=== PATIENT | female | born 1965 | race Caucasian/White ===

== ENCOUNTER 2017-09-02 12:42 | Observation (INO) ==
[2017-09-02] MEDS ORDERED: Nitroglycerin 0.4 MG TAB.SUBL SL ONE (12:50)
[2017-09-02] MEDS: Aspirin 81 MG TAB.CHEW PO ONE ×2 (12:56→13:02)
[2017-09-02] MEDS ORDERED: Ondansetron 4 MG/2 ML VIAL IVP ONE (12:58)
--- NOTE | 2017-09-02 12:58 | Emergency Department Note ---
Disposition Clinical Impression: Chest pain of uncertain etiology Disposition: Admitted As Inpatient Time of Disposition: 18:48 General Adult HPI - General Chief complaint: ED Shortness of Breath/Dyspnea Stated complaint: SOB Time Seen by Provider: 09/02/17 12:42 Source: patient, EMS Limitations: no limitations Nursing Notes Reviewed: Yes Vital Signs Reviewed: Yes - History of Present Illness HPI Narrative: Mrs. Banda, a 51yo female, presents from home for acute onset dyspnea with nausea , running 1, sharp stabbing pain in the midsternum and below her left breast with radiation to her left scapula which is worse with deep inspiration, associated with tingling going down her left arm. Patient feels warm and flushed. Cardiac history: Prior KS (year unknown) without stent placement. Echo 03/15/17-LVEF 60%. LV mild diastolic dysfunction with concentric LV hypertrophy. No significant valvular dysfunction. No pulmonary hypertension. Nuclear treadmill stress test 06/22/15 - resting hypertension worsened with exercise. EF 69%. Negative for ischemia or prior infarct. PMH: Hypertension, hyperlipidemia, diabetes, previous KS, CHF, COPD not requiring oxygen at home. ROS: Positive: As above Negative: Fever, chills, abdominal pain, unusual cough, trauma Pain Scale: 6 - Related Data Home Medications Medication Instructions Recorded Confirmed Albuterol Sulfate [Proair 2 puff IH Q4H PRN 01/31/16 09/02/17 Respiclick] Atorvastatin Calcium [Lipitor] 20 mg PO DAILY 01/31/16 09/02/17 Chlorthalidone 25 mg PO DAILY 01/31/16 09/02/17 Gabapentin [Neurontin] 300 mg PO HS 01/31/16 09/02/17 Lisinopril [Zestril] 40 mg PO BID 01/31/16 09/02/17 SitaGLIPtin [Januvia] 100 mg PO DAILY 01/31/16 09/02/17 Spironolactone [Aldactone] 100 mg PO DAILY 01/31/16 09/02/17 amLODIPine [Norvasc] 10 mg PO DAILY 01/31/16 09/02/17 metFORMIN [Glucophage] 1,000 mg PO BIDWM 01/31/16 09/02/17 Budesonide/Formoterol 160/4.5 2 puff IH BIDR 04/07/16 09/02/17 [Symbicort 160/4.5] Sucralfate [Carafate] 1 gm PO BID 04/07/16 09/02/17 Doxazosin [Cardura] 4 mg PO HS 01/19/17 09/02/17 cloNIDine HCl [Clonidine HCl] 0.15 mg PO BID 01/19/17 09/02/17 cloNIDine HCl [Clonidine HCl] 0.3 mg PO HS 01/19/17 09/02/17 Escitalopram [Lexapro] 10 mg PO DAILY 09/02/17 09/02/17 Hydralazine HCl 50 mg PO TID 09/02/17 09/02/17 Minoxidil 2.5 mg PO BID 09/02/17 09/02/17 Montelukast [Singulair] 10 mg PO HS 09/02/17 09/02/17 Pantoprazole Sodium [Protonix] 40 mg PO BID 09/02/17 09/02/17 Tiotropium [Spiriva] 1 puff IH DAILY 09/02/17 09/02/17 Previous Rx's Medication Instructions Recorded PredniSONE [Deltasone] 20 mg PO DAILY #10 tablet 08/24/17 Allergies Allergy/AdvReac Type Severity Reaction Status Date / Time Beta-Blockers Allergy Difficulty Verified 08/24/17 08:52 (Beta-Adrenergic Bloc Breathing All systems ED: reviewed and negative except as stated. Review of Systems: As Per HPI Past Medical History - Past Medical History Medical history: Reports: asthma, CHF, COPD, diabetes, GERD, hyperlipidemia, hypertension, myocardial infarction, TIA Surgical history: Reports: appendectomy Psychiatric history: Reports: no psych history [employer] history: Reports: non-contributory - Social History Smoking Status: Former smoker Smokeless Tobacco Status: No Alcohol use: Reports: none Drug use: Reports: none Physical Exam Vital Signs Reviewed General: Patient is alert, oriented, and in moderate distress-she is breathing shallow and is tachypneic. Grimacing on her face. HEENT: No facial asymmetry. Head is normocephalic and atraumatic. Mucosa moist. Trachea midline. Cardiovascular: Heart regular rate and rhythm without clicks, rubs, gallops, or murmurs. No JVD. PMI nondisplaced. Radial posterior tibial pulses 2/44. No pedal edema. Respiratory: Symmetric chest rise with good respiratory effort. Bilateral breath sounds are clear without wheezing, crackles, or rhonchi. Abdomen: Bowel sounds present normoactive x-4 quadrants. Abdomen is soft, nondistended, and nontender. No organomegaly noted. Musculoskeletal: Spontaneously moving all extremities. Neuro: GCS 15. Skin: Warm, dry, intact Psych: Patient's affect is appropriate for situation. - General Limitations: no limitations General appearance: alert, in no apparent distress Course Course Narrative: Patient presents from home with symptoms concerning for ACS. She appears uncomfortable. She notes her symptoms today feel very similar to her previous KS. She also is having increased work of breathing with diffuse wheezing on pulmonary auscultation. Symptoms improved substantially with sublingual nitroglycerin. Initial EKG is unremarkable. Repeat EKG shows no changes. Chest x-ray unremarkable. Initial troponin is 0.00. Patient is agreeable to admission for chest pain rule out ACS. Vital Signs Temperature 97.7 F 09/02/17 12:43 Pulse Rate 87 09/02/17 12:43 Respiratory Rate 20 09/02/17 12:43 Blood Pressure 114/74 09/02/17 12:43 O2 Sat by Pulse Oximetry 95 09/02/17 12:43 Temperature 97.7 F 09/02/17 15:50 Pulse Rate 116 09/02/17 15:50 Respiratory Rate 15 09/02/17 15:50 Blood Pressure 178/80 09/02/17 15:50 O2 Sat by Pulse Oximetry 96 09/02/17 15:50 Oxygen Delivery Oxygen Delivery Nasal Cannula Medical Decision Making - Medical Records Medical records reviewed: Yes I reviewed the patient's medical records. - Lab Data Lab results reviewed: Yes I reviewed the patient's lab results. Result diagrams: 09/02/17 12:53 09/02/17 12:53 Lab Results 09/02/17 09/02/17 09/02/17 Range/Units 12:53 12:53 12:53 WBC 13.4 H (4.3-11.1) K/mcL RBC 4.84 (3.82-4.97) M/mcL Hgb 13.3 (11.5-15.4) g/dL Hct 39.5 (35.3-44.9) % MCV 81.6 L (83.0-100.0) fL MCH 27.5 L (28.0-33.3) pg MCHC 33.7 (31.6-35.5) g/dL RDW 12.1 (11.5-14.5) % Plt Count 238 (140-400) K/mcL MPV 9.1 L (9.4-12.4) fL Immature Gran % 1.8 (0-4) % Seg Neutrophils % 66.7 % Lymphocytes % 20.4 % Monocytes % 7.2 % Eosinophils % 3.2 % Basophils % 0.7 % Neutrophils # 9.0 H (1.6-8.9) K/mcL Lymphocytes # 2.7 (0.6-4.6) K/mcL Monocytes # 1.0 (0.0-1.3) K/mcL Eosinophils # 0.4 (0.0-0.6) K/mcL Basophils # 0.1 (0.0-0.2) K/mcL PT 10.0 (9.4-12.1) Seconds INR 0.9 APTT 25.5 L (26.0-36.0) Seconds Sodium 136 (136-145) mEq/L Potassium 3.9 (3.5-4.5) mEq/L Chloride 103 (98-109) mEq/L Carbon Dioxide 24 (19-29) mEq/L BUN 12 (7-20) mg/dL Creatinine 0.74 (0.57-1.11) mg/dL Est GFR ( Amer) > 60 (> 60) Est GFR (Non-Af Amer) > 60 (> 60) BUN/Creatinine Ratio 16 (6-26) Glucose 166 H (70-99) mg/dL Calculated Osmolality 286 (280-300) Calcium 8.9 (8.6-10.8) mg/dL Troponin I (0-0.03) ng/mL 09/02/17 Range/Units 12:53 WBC (4.3-11.1) K/mcL RBC (3.82-4.97) M/mcL Hgb (11.5-15.4) g/dL Hct (35.3-44.9) % MCV (83.0-100.0) fL MCH (28.0-33.3) pg MCHC (31.6-35.5) g/dL RDW (11.5-14.5) % Plt Count (140-400) K/mcL MPV (9.4-12.4) fL Immature Gran % (0-4) % Seg Neutrophils % % Lymphocytes % % Monocytes % % Eosinophils % % Basophils % % Neutrophils # (1.6-8.9) K/mcL Lymphocytes # (0.6-4.6) K/mcL Monocytes # (0.0-1.3) K/mcL Eosinophils # (0.0-0.6) K/mcL Basophils # (0.0-0.2) K/mcL PT (9.4-12.1) Seconds INR APTT (26.0-36.0) Seconds Sodium (136-145) mEq/L Potassium (3.5-4.5) mEq/L Chloride (98-109) mEq/L Carbon Dioxide (19-29) mEq/L BUN (7-20) mg/dL Creatinine (0.57-1.11) mg/dL Est GFR ( Amer) (> 60) Est GFR (Non-Af Amer) (> 60) BUN/Creatinine Ratio (6-26) Glucose (70-99) mg/dL Calculated Osmolality (280-300) Calcium (8.6-10.8) mg/dL Troponin I 0.00 (0-0.03) ng/mL - Radiology Data Radiology results reviewed: Yes I reviewed the patient's radiology results. Chest X-Ray 09/02/17 12:50 IMPRESSION: Stable cardiomegaly without acute cardiopulmonary findings. Previously noted nodule is not well appreciated on today's study. D/ / 09/02/2017 14:05:55 Araseli Thompson MD / amber Interpreting Provider: Araseli Thompson MD - EKG Data EKG #1 EKG attestation: Yes I reviewed and interpreted this EKG. EKG results narrative: EKG dated 02 September 2017 at 12:47 intervertebral sinus rhythm with a rate of 84. Normal intervals with MD 152, QRS 90, QT/QTC 391/432. Normal axis. Nonspecific ST-T changes. Compared to previous EKG showing no acute ischemic changes. EKG #2 EKG attestation: Yes I reviewed and interpreted this EKG. EKG results narrative: EKG dated 02 September 2017 at 13:44 interpreted as sinus rhythm with rate of 93. Normal intervals of care 192, QRS 80, QT/QTc 34/435. Compared to previous EKG from today showing no acute ischemic changes. Attestation Statement - Attestation Attestation: I examined this patient and my medical decision-making was reviewed with the Resident Physician. I agree with the documented findings, disposition and treatment plan as described except to the extent set forth below. Patient eating or shortness of breath and chest pain. Pain started while going up the stairs. States her left arm went numb. She has had some nausea and vomiting as well. On examination here she appears mildly tachypneic. Crackles in bases. Decreased air exchange. Plan. Cardiac workup with nebs. Likely admission.
[2017-09-02 13:01] LABS: Basophils # 0.1 K/mcL (0.0-0.2); Basophils % 0.7 %; Eosinophils # 0.4 K/mcL (0.0-0.6); Eosinophils % 3.2 %; Hematocrit 39.5 % (35.3-44.9); Hemoglobin 13.3 g/dL (11.5-15.4); Immature Granulocytes % 1.8 % (0-4); Lymphocytes # 2.7 K/mcL (0.6-4.6); Lymphocytes % 20.4 %; Mean Corpuscular HGB Conc 33.7 g/dL (31.6-35.5); Mean Corpuscular Hemoglobin 27.5 pg (28.0-33.3); Mean Corpuscular Volume 81.6 fL (83.0-100.0); Mean Platelet Volume 9.1 fL (9.4-12.4); Monocytes % 7.2 %; Platelet Count 238 K/mcL (140-400); Red Blood Count 4.84 M/mcL (3.82-4.97); Red Cell Distribution Width 12.1 % (11.5-14.5); Segmented Neutrophils % 66.7 %
[2017-09-02] MEDS ORDERED: 0.9 % Sodium Chloride 1,000 ML IVC ONE ×2 (13:06→21:55)
[2017-09-02 13:14] LABS: BUN/Creatinine Ratio 16 (6-26); Blood Urea Nitrogen 12 mg/dL (7-20); Calcium 8.9 mg/dL (8.6-10.8); Carbon Dioxide 24 mEq/L (19-29); Chloride 103 mEq/L (98-109); Glucose 166 mg/dL (70-99); Osmolality,Calculated 286 (280-300); Potassium 3.9 mEq/L (3.5-4.5); Sodium 136 mEq/L (136-145); eGFR For African Americans > 60 (> 60); eGFR For Non-African Americans > 60 (> 60)
[2017-09-02 13:18] LABS: INR 0.9
[2017-09-02 13:21] LABS: Activated Partial Thrombo Time 25.5 Seconds (26.0-36.0)
[2017-09-02] MEDS ORDERED: methylPREDNISolone 125 MG/2 ML VIAL IVP ONE (14:13)
[2017-09-02] MEDS ORDERED: Ipratropium/Albuterol Neb 3 ML IH ONE (14:13)
[2017-09-02] MEDS ORDERED: Mag Hydrox/Al Hydrox/Simeth 30 ML UDC PO PRN (17:04)
[2017-09-02] MEDS ORDERED: *HR* Morphine 2 MG/ML SYRINGE IVP PRN (17:04)
[2017-09-02] MEDS ORDERED: Naloxone 0.4 MG/ML INJ IVP PRN (17:04)
--- NOTE | 2017-09-02 17:30 | Internal Med History&Physical ---
Date of Encounter: 09/02/17 Time of Encounter: 17:27 Assessment and Plan (1) Acute exacerbation of chronic obstructive airways disease Current visit: No Status: Acute Patient is likely to have a exacerbation of underlying COPD. Plan: Will start antibiotics: Ceftriaxone/azithromycin. We will start prednisone orally : 20 mg We will continue inhaled bronchodilators (2) Chest pain Current visit: No Status: Resolved Patient admitted with the chest pain. Heart score more than 3. Her cardiac history is as follows. Echo 03/15/17-LVEF 60%. LV mild diastolic dysfunction with concentric LV hypertrophy. No significant valvular dysfunction. No pulmonary hypertension. Nuclear treadmill stress test 06/22/15 - resting hypertension worsened with exercise. EF 69%. Negative for ischemia or prior infarct. Plan: We will cycle troponin. If troponins are positive and will get a cardiology evaluation. Patient had a stress test in last 2 years and echo in less than 1 year. Qualifiers: Chest pain type: unspecified Qualified Code(s): R07.9 - Chest pain, unspecified (3) HLD (hyperlipidemia) Current visit: No Status: Chronic Patient on statin. Qualifiers: Hyperlipidemia type: unspecified Qualified Code(s): E78.5 - Hyperlipidemia , unspecified (4) Community acquired pneumonia Current visit: No Status: Acute likely clinical pneumonia Qualifiers: Laterality: unspecified laterality Qualified Code(s): J18.9 - Pneumonia, unspecified organism (5) DVT prophylaxis Current visit: No Status: Acute SCD. Medical decision-making this patient has a moderate to severe risk of worsening in spite of being on appropriate medication to the underlying comorbid conditions. Internal Medicine - H&P: HPI Chief complaint: Chest pain Admitted From: Emergency Dept Plans for Post Hospital Care: Home History of present illness: PCP: Nurse practitioner Juan Ramon Brief past medical history: Hypertension, diabetes, hyperlipidemia, COPD, previous NM which is not documented. 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 The pain is left precordial, radiating, associated with exertion and relieved by rest. She has some tingling sensation on her left arm. Patient was concerned for her symptoms. Patient's daughter works here in this hospital. His for the reason patient came to the emergency room for further evaluation. Patient denies abdominal pain, nausea, vomiting, dizziness and diarrhea. Workup in the emergency room: He was evaluated in the emergency room. Possibility of coronary syndrome was suspected. Reason for admission: Chest pain to rule out acute coronary syndrome. Patient also meets the criteria for sepsis. We will start her on broad-spectrum antibiotics. Family history: Noncontributing Past Med Surg Social Fam HX - Past Medical History Medical history: asthma, CHF, COPD, diabetes, GERD, hyperlipidemia, hypertension , myocardial infarction, TIA Psychiatric history: no psych history - Past Surgical History Surgical History: appendectomy - Social History Smoking Status: Former smoker Smokeless Tobacco Status: No Alcohol use: none Drug use: none - Family History Mother Family Member Ethnicity: Non- Living Status: Age at : 60 Cause of : NM Hx Family Cardiac Disorders: Yes Hx Family Respiratory Disorders: No Hx Family Cancer: No Hx Family GI Disorders: No Hx Family Endocrine Disorder: Yes (DM) Hx Family Neuromuscular Disorders: No Hx Family Neurologic Disorders: No Hx Family HEENT Disorders: No Hx Family Autoimmune Disorders: No Internal Medicine - H&P: Meds Albuterol Sulfate [Proair Respiclick] 2 puff IH Q4H PRN 01/31/16 [History] Atorvastatin Calcium [Lipitor] 20 mg PO DAILY 01/31/16 [History] Chlorthalidone 25 mg PO DAILY 01/31/16 [History] Gabapentin [Neurontin] 300 mg PO HS 01/31/16 [History] Lisinopril [Zestril] 40 mg PO BID 01/31/16 [History] SitaGLIPtin [Januvia] 100 mg PO DAILY 01/31/16 [History] Spironolactone [Aldactone] 100 mg PO DAILY 01/31/16 [History] amLODIPine [Norvasc] 10 mg PO DAILY 01/31/16 [History] metFORMIN [Glucophage] 1,000 mg PO BIDWM 01/31/16 [History] Budesonide/Formoterol 160/4.5 [Symbicort 160/4.5] 2 puff IH BIDR 04/07/16 [ History] Sucralfate [Carafate] 1 gm PO BID 04/07/16 [History] Doxazosin [Cardura] 4 mg PO HS 01/19/17 [History] cloNIDine HCl [Clonidine HCl] 0.15 mg PO BID 01/19/17 [History] cloNIDine HCl [Clonidine HCl] 0.3 mg PO HS 01/19/17 [History] PredniSONE [Deltasone] 20 mg PO DAILY #10 tablet 08/24/17 [Rx] Escitalopram [Lexapro] 10 mg PO DAILY 09/02/17 [History] Hydralazine HCl 50 mg PO TID 09/02/17 [History] Minoxidil 2.5 mg PO BID 09/02/17 [History] Montelukast [Singulair] 10 mg PO HS 09/02/17 [History] Pantoprazole Sodium [Protonix] 40 mg PO BID 09/02/17 [History] Tiotropium [Spiriva] 1 puff IH DAILY 09/02/17 [History] 3 Allergy/AdvReac Type Severity Reaction Status Date / Time Beta-Blockers Allergy Difficulty Verified 08/24/17 08:52 (Beta-Adrenergic Bloc Breathing All Systems PM: A 10-system review of systems was performed and is negative for pertinent findings except as documented above in the HPI. - Constitutional Constitutional: no chills, no fever(s), no night sweats - EENT Eyes: no change in vision, no discharge, no pain, no photophobia Ears: no ear discharge, no ear pain, no tinnitus Nose, mouth and throat: no dysphagia, no nasal discharge, no neck pain, no sore throat - Cardiovascular Cardiovascular ROS IM: chest pain, diaphoresis, no dyspnea, no lightheadedness, no palpitations, no syncope - Respiratory Respiratory: cough, dyspnea, excessive phlegm production, no wheezing - Gastrointestinal Gastrointestinal: no abdominal pain, no diarrhea, no hematemesis, no hematochezia, no melena, no nausea, no vomiting - Genitourinary Genitourinary: no change in urinary stream, no dysuria, no flank pain, no hematuria - Musculoskeletal Musculoskeletal ROS IM: no numbness, no tingling - Integumentary Integumentary IM: no rash, no unusual bruising - Neurological Neurological ROS: no confusion, no convulsions, no focal weakness, no numbness, no tingling, no tremor(s) - Hematologic/Lymphatic Hematologic/Lymphatic: no easy bruising - Constitutional Vitals: Temp Pulse Resp BP Pulse Ox 97.7 F 116 15 178/80 96 09/02/17 15:50 09/02/17 15:50 09/02/17 15:50 09/02/17 15:50 09/02/17 15:50 General appearance: Present: A&O X 3, pleasant, no acute distress, answers questions appropriately - Head Head exam: Present: atraumatic, normocephalic - Eye Eye exam: Present: PERRL, conjuntiva pink, sclera anicteric Pupils: Present: PERRL - Neck Neck exam general surgery: Present: supple, trachea midline. Absent: lymphadenopathy - Respiratory Respiratory exam: Present: CTAB. Absent: accessory muscle use, rales, rhonchi, wheezes - Cardiovascular Cardiovascular exam: Present: RRR, +S1, +S2. Absent: diastolic murmur, gallop, rubs, systolic murmur - GI/Abdominal GI/Abdominal exam: Present: normal bowel sounds, soft, no peritoneal signs. Absent: distended, tenderness - Extremities Exam Extremities exam: Present: warm, radial pulses palpable and symmetrical. Absent : calf tenderness, cyanotic, pedal edema - Neurological Exam Neurological exam: Present: CN II-XII intact, oriented X3, no focal deficits. Absent: pronater drift, facial droop, speech deficit - Skin Skin exam: Present: dry, intact Internal Med - H&P Results - Labs CBC & Chem 7: 09/02/17 12:53 09/02/17 12:53
[2017-09-02] MEDS: 0.9 % Sodium Chloride 1,000 ML IVC SCH (17:40)
[2017-09-02] MEDS ORDERED: cefTRIAXone 1,000 MG in Water for inj. (sterile) 10 ML IVP SCH (18:00)
[2017-09-02] MEDS ORDERED: Acetaminophen 325 MG TABLET PO ONE (18:26)
[2017-09-02] MEDS: Azithromycin 500 MG in D5% in Water 250 ML IVPB SCH (18:31)
--- NOTE | 2017-09-02 18:32 | Electrocardiograph Report ---
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
[2017-09-02] MEDS ORDERED: Ipratropium/Albuterol Neb 3 ML IH SCH (20:00)
[2017-09-02] MEDS: hydrALAZINE 25 MG TABLET PO SCH (20:08)
[2017-09-02] MEDS: Gabapentin 300 MG CAPSULE PO SCH (20:10)
[2017-09-02] MEDS: Sucralfate 1 GM TABLET PO SCH (20:10)
[2017-09-02] MEDS: cloNIDine HCl 0.1 MG TABLET PO SCH ×2 (20:10→20:13)
[2017-09-02] MEDS: Lisinopril 20 MG TABLET PO SCH (20:11)
[2017-09-02] MEDS ORDERED: *HR* LORazepam 2 MG/ML VIAL IVP ONE (20:21)
[2017-09-02] MEDS: Budesonide/Formoterol 160/4.5 MDI IH SCH (20:21)
[2017-09-02] MEDS ORDERED: 0.9 % Sodium Chloride 500 ML IVC ONE (20:21)
[2017-09-02] MEDS: Levalbuterol Neb 1.25 MG/3 ML IH SCH ×2 (20:21→23:31)
[2017-09-02] MEDS ORDERED: 0.9 % Sodium Chloride 500 ML ONE (20:24)
[2017-09-03] MEDS: Piperacillin/Tazobactam 3.375 GM in D5% in Water 50 ML IVPB SCH ×3 (00:06→18:02)
[2017-09-03] MEDS ORDERED: D5% in Water 1,000 ML IVC PRN (00:12)
[2017-09-03] MEDS ORDERED: *HR* Dextrose 50 % in Water (Syg) 50 ML SYRINGE IVP PRN (00:12)
[2017-09-03] MEDS ORDERED: Dextrose Gel 15 GM PO PRN ×2 (00:12)
[2017-09-03 00:34] LABS: Bilirubin,Urine Negative (Negative); Blood,Urine Trace (Negative); Clarity,Urine Clear (Clear); Color,Urine Yellow (Yellow); Glucose,Urine (UA) >=1000 mg/dL (Normal); Ketones,Urine Negative (Negative); Leukocyte Esterase,Urine Negative (Negative); Nitrite,Urine Negative (Negative); PH,Urine 5.5 pH Units (5.0-8.0); Protein,Urine Negative (Neg-Trace); Specific Gravity,Urine > 1.030 (1.010-1.025); Urobilinogen,Urine Normal (Normal)
[2017-09-03 00:36] LABS: Bacteria,Urine None Seen per hpf (None-Few); Hyaline Casts,Urine None Seen per lpf (None-Few); RBC,Urine 0-3 per hpf (0-3); Squamous Epithelial Cell,Urine Moderate per lpf (None-Few); WBC,Urine 0-3 per hpf (0-3)
[2017-09-03] MEDS: Insulin LISPRO 300 UNITS/3 ML VIAL SQ SCH ×5 (01:10→23:49)
[2017-09-03] MEDS: Levalbuterol Neb 1.25 MG/3 ML IH SCH ×6 (04:09→23:27)
[2017-09-03 05:47] LABS: Basophils % 0.1 %; Hematocrit 37.4 % (35.3-44.9); Hemoglobin 12.2 g/dL (11.5-15.4); Immature Granulocytes % 1.2 % (0-4); Lymphocytes # 0.9 K/mcL (0.6-4.6); Lymphocytes % 3.9 %; Mean Corpuscular HGB Conc 32.6 g/dL (31.6-35.5); Mean Corpuscular Hemoglobin 27.3 pg (28.0-33.3); Mean Corpuscular Volume 83.7 fL (83.0-100.0); Mean Platelet Volume 9.7 fL (9.4-12.4); Monocytes # 0.4 K/mcL (0.0-1.3); Monocytes % 1.9 %; Neutrophils # 20.4 K/mcL (1.6-8.9); Platelet Count 240 K/mcL (140-400); Red Blood Count 4.47 M/mcL (3.82-4.97); Red Cell Distribution Width 12.8 % (11.5-14.5); Segmented Neutrophils % 92.9 %
[2017-09-03 05:54] LABS: Prothrombin Time 10.9 Seconds (9.4-12.1)
[2017-09-03 05:57] LABS: Activated Partial Thrombo Time 25.6 Seconds (26.0-36.0)
[2017-09-03 06:05] LABS: Alanine Aminotransferase 22 Units/L (0-55); Albumin/Globulin Ratio 0.9 (1.1-2.2); Alkaline Phosphatase 82 Units/L (38-126); Aspartate Amino Transferase 17 Units/L (5-34); BUN/Creatinine Ratio 20 (6-26); Bilirubin,Total 0.4 mg/dL (0.2-1.2); Blood Urea Nitrogen 13 mg/dL (7-20); Calcium 8.8 mg/dL (8.6-10.8); Carbon Dioxide 18 mEq/L (19-29); Chloride 109 mEq/L (98-109); Cholesterol 193 mg/dL (< 200); Globulin 3.2 g/dL (2.4-3.5); Glucose 213 mg/dL (70-99); HDL Cholesterol 48 mg/dL (40-59); LDL Cholesterol,Calculated 125 mg/dL (0-99); Magnesium 1.7 mg/dL (1.6-2.6); Osmolality,Calculated 290 (280-300); Phosphorous 2.6 mg/dL (2.3-4.7); Potassium 4.1 mEq/L (3.5-4.5); Sodium 137 mEq/L (136-145); Total Protein 6.2 g/dL (6.0-8.3); Triglycerides 101 mg/dL (< 150); eGFR For African Americans > 60 (> 60); eGFR For Non-African Americans > 60 (> 60)
[2017-09-03] MEDS: methylPREDNISolone 125 MG/2 ML VIAL IVP SCH ×4 (07:02→23:49)
[2017-09-03] MEDS: Budesonide/Formoterol 160/4.5 MDI IH SCH ×2 (07:56→20:36)
[2017-09-03] MEDS: Tiotropium 18 MCG inhalation IH SCH (07:56)
[2017-09-03] MEDS ORDERED: predniSONE 20 MG TABLET PO SCH (09:00)
[2017-09-03] MEDS ORDERED: amLODIPine 5 MG TABLET PO SCH (09:00)
[2017-09-03] MEDS: Lisinopril 20 MG TABLET PO SCH ×2 (09:24→21:25)
[2017-09-03] MEDS: hydrALAZINE 25 MG TABLET PO SCH ×3 (09:24→21:25)
[2017-09-03] MEDS: Sucralfate 1 GM TABLET PO SCH ×2 (09:24→21:27)
[2017-09-03] MEDS: cloNIDine HCl 0.1 MG TABLET PO SCH ×3 (09:24→21:25)
[2017-09-03] MEDS ORDERED: Piperacillin/Tazobactam 3.375 GM in D5% in Water 50 ML IVPB SCH ×3 (09:45→18:00)
[2017-09-03] MEDS: 0.9 % Sodium Chloride 1,000 ML IVC SCH (11:31)
[2017-09-03 11:34] LABS: ABG Base Excess -5 mEq/L (-2 to 3); ABG HCO3 20 mEq/L (21-27); ABG Oxygen Saturation 98 % (95-98); ABG PCO2 35 mmHg (35-45); ABG PH 7.35 pH Units (7.32-7.45); ABG PO2 110 mmHg (85-104); ABG TCO2 21 mEq/L (20-26)
--- NOTE | 2017-09-03 12:49 | Internal Med Progress Note ---
<Girma Guerra Eliel - Last Filed: 09/03/17 14:56> Date of Encounter: 09/03/17 Time of Encounter: 12:41 - Assessment and plan (1) Acute exacerbation of chronic obstructive airways disease Current Visit: No Status: Acute Assessment and plan: Worsening dyspnea for the past week. Denies sputum production O2 sat 96-98 on 2-3L O2 nasal canula ABG: pH 7.35, pCO2 35, HCO3 20 CXR: Stable cardiomegaly without acute cardiopulmonary findings. No focal consolidation, pleural effusion, or pneumothorax CTA chest: No aortic dissection. No PE. Mild atelectasis within lungs, no definitive infiltrate. Stable left lower lobe nodule Lactic acid elevated: 3.8, 7.3, 6.6, 4.1. WBC 13.4 on admission. Procalcitonin pending. Continue antibiotics: Zosyn, Azithromycin Continue prednisone and bronchodilators (2) Chest pain Current Visit: Yes Status: Resolved Assessment and plan: Acute onset sternal and left-sided chest pain - radiation to back and left arm Responded to nitroglycerin in ED, but her BP dropped to 86/56 Troponins slowly elevatin.00, 0.01, 0.02, 0.05, 0.08 No ischemic EKG changes. CTA shows no PE Previous Echo from 03/15/17: LVEF EF60%. LV diastolic dysfunction with concentric LV hypertrophy. No significant valvular dysfunction. No pulmonary HTN. Previous Stress 06/22/15: Resting HTN worsening with exercise. No ischemia or prior infarct Reports previous CT "a couple years ago" without PCI Cardiology consulted - trend troponin, add therapeutic dose Lovenox Tachycardia this morning - add PO cardizem Continue meds - Chlorthalidone, Clonidine, Lisinopril, Aldactone, Hydralazine, Lipitor Qualifiers: Chest pain type: unspecified Qualified Code(s): R07.9 - Chest pain, unspecified (3) Community acquired pneumonia Current Visit: No Status: Acute Assessment and plan: CXR and CTA shows no focal infiltrates, but still concern for early pneumonia WBC and LA elevated Continue antibiotics, bronchodilators, and O2 Qualifiers: Laterality: unspecified laterality Qualified Code(s): J18.9 - Pneumonia, unspecified organism (4) HTN (hypertension) Current Visit: Yes Status: Acute Assessment and plan: Continue home meds Qualifiers: Hypertension type: essential hypertension Qualified Code(s): I10 - Essential (primary) hypertension (5) HLD (hyperlipidemia) Current Visit: No Status: Chronic Assessment and plan: Continue statin Qualifiers: Hyperlipidemia type: unspecified Qualified Code(s): E78.5 - Hyperlipidemia , unspecified (6) Diabetes Current Visit: No Status: Chronic Assessment and plan: Hold home meds. 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 Reports she is feeling better than yesterday, but continues to have dyspnea at rest and on exertion. Respirations are labored during our conversation. She reports a history of increasing dyspnea for the past week associated with vomiting and diarrhea. She had been diagnosed with a UTI as well. She received 5 days of prednisone and azithromycin prior to admission. On the day of admission she had an acute worsening of her dyspnea as she was walking up 3 steps that was associated with sharp sternal and left- sided chest pain radiating to her back, left arm, and neck. Then she became diaphoretic, flushed, and vomited. She received nitroglycerin in the ED that helped her pain. This morning she reports continued dyspnea and some mild left- sided chest pain. Denies syncope, light-headedness, N/V/D/C, dysuria, or leg pain/edema. - Constitutional Vitals: Temp Pulse Resp BP Pulse Ox 98.0 F 103 16 130/66 96 09/03/17 10:54 09/03/17 10:54 09/03/17 11:49 09/03/17 10:54 09/03/17 11:49 General appearance: Present: mild distress, A&O X 3, pleasant, answers questions appropriately - Head Head exam: Present: atraumatic, normocephalic - Eye Eye exam: Present: conjuntiva pink, sclera anicteric - Neck Neck exam general surgery: Present: supple, trachea midline. Absent: lymphadenopathy - Respiratory Respiratory exam: Present: accessory muscle use, decreased breath sounds, wheezes. Absent: rales, rhonchi - Cardiovascular Cardiovascular exam: Present: +S1, +S2, systolic murmur, tachycardia (regular rhythm). Absent: diastolic murmur - GI/Abdominal GI/Abdominal exam: Present: normal bowel sounds, soft, no peritoneal signs. Absent: distended, tenderness - Extremities Exam Extremities exam: Present: warm, radial pulses palpable and symmetrical. Absent : calf tenderness, cyanotic, pedal edema - Neurological Exam Neurological exam: Present: CN II-XII intact, oriented X3, no focal deficits. Absent: facial droop, speech deficit - Skin Skin exam: Present: dry, intact Internal Medicine: Result - Labs CBC & Chem 7: 09/03/17 04:55 09/03/17 04:55 Labs: Short CBC 09/03/17 Range/Units 04:55 WBC 21.9 H D (4.3-11.1) K/mcL Hgb 12.2 (11.5-15.4) g/dL Hct 37.4 (35.3-44.9) % Plt Count 240 (140-400) K/mcL Neutrophils # 20.4 H (1.6-8.9) K/mcL BMP 09/03/17 04:55 Sodium 137 Potassium 4.1 Chloride 109 Carbon Dioxide 18 L BUN 13 Creatinine 0.66 Glucose 213 H Calcium 8.8 Cardiac Enzymes 09/02/17 09/02/17 09/03/17 Range/Units 18:01 23:25 04:55 Troponin I 0.01 0.02 0.05 H* (0-0.03) ng/mL Liver Function 09/03/17 Range/Units 04:55 Total Bilirubin 0.4 (0.2-1.2) mg/dL AST 17 (5-34) Units/L ALT 22 (0-55) Units/L Alkaline Phosphatase 82 (38-126) Units/L Albumin 3.0 L (3.5-5.0) g/dL Urine 09/02/17 Range/Units 23:40 Urine Color Yellow (Yellow) Urine Clarity Clear (Clear) Urine pH 5.5 (5.0-8.0) pH Units Ur Specific Hooper > 1.030 H (1.010-1.025) Urine Protein Negative (Neg-Trace) mg/dL Urine Glucose (UA) >=1000 H (Normal) mg/dL - ABG Interpretation ABG results: ABG ABG pH 7.35 pH Units (7.32-7.45) 09/03/17 11:32 ABG pCO2 35 mmHg (35-45) 09/03/17 11:32 ABG pO2 110 mmHg (85-104) H 09/03/17 11:32 ABG O2 Saturation 98 % (95-98) 09/03/17 11:32 PT/INR, D-dimer PT 10.9 Seconds (9.4-12.1) 09/03/17 04:55 - Impressions Impressions Chest CTA 09/02/17 21:50 IMPRESSION: 1. No evidence of aortic dissection. 2. No evidence of pulmonary embolism. 3. Mild atelectasis within the lungs. No definite focal infiltrate is identified. 4. Stable nodule within the left lower lobe. 5. Fatty liver infiltration. D/ / Sen George MD / Sen George MD Interpreting Provider: Sen George MD Abdomen CTA 09/02/17 21:56 IMPRESSION: 1. No evidence of aortic dissection. 2. No evidence of pulmonary embolism. 3. Mild atelectasis within the lungs. No definite focal infiltrate is identified. 4. Stable nodule within the left lower lobe. 5. Fatty liver infiltration. D/ / Sen George MD / Sen George MD Interpreting Provider: Sen George MD Consult Discharge Plan - Plan Referrals: Ailyn Delatorre, [facility] [Primary Care Provider] - <[email or web address] - Last Filed: 09/03/17 17:16> Date of Encounter: 09/03/17 - Constitutional Vitals: Temp Pulse Resp BP Pulse Ox 98.6 F 96 16 107/53 96 09/03/17 16:02 09/03/17 16:02 09/03/17 15:47 09/03/17 16:02 09/03/17 16:02 Internal Medicine: Result - Labs CBC & Chem 7: 09/03/17 04:55 09/03/17 04:55 Labs: Short CBC 09/03/17 Range/Units 04:55 WBC 21.9 H D (4.3-11.1) K/mcL Hgb 12.2 (11.5-15.4) g/dL Hct 37.4 (35.3-44.9) % Plt Count 240 (140-400) K/mcL Neutrophils # 20.4 H (1.6-8.9) K/mcL BMP 09/03/17 04:55 Sodium 137 Potassium 4.1 Chloride 109 Carbon Dioxide 18 L BUN 13 Creatinine 0.66 Glucose 213 H Calcium 8.8 Cardiac Enzymes 09/02/17 09/02/17 09/03/17 Range/Units 18:01 23:25 04:55 Troponin I 0.01 0.02 0.05 H* (0-0.03) ng/mL 09/03/17 Range/Units 12:09 Troponin I 0.08 H* (0-0.03) ng/mL Liver Function 09/03/17 Range/Units 04:55 Total Bilirubin 0.4 (0.2-1.2) mg/dL AST 17 (5-34) Units/L ALT 22 (0-55) Units/L Alkaline Phosphatase 82 (38-126) Units/L Albumin 3.0 L (3.5-5.0) g/dL Urine 09/02/17 Range/Units 23:40 Urine Color Yellow (Yellow) Urine Clarity Clear (Clear) Urine pH 5.5 (5.0-8.0) pH Units Ur Specific Hooper > 1.030 H (1.010-1.025) Urine Protein Negative (Neg-Trace) mg/dL Urine Glucose (UA) >=1000 H (Normal) mg/dL - ABG Interpretation ABG results: ABG ABG pH 7.35 pH Units (7.32-7.45) 09/03/17 11:32 ABG pCO2 35 mmHg (35-45) 09/03/17 11:32 ABG pO2 110 mmHg (85-104) H 09/03/17 11:32 ABG O2 Saturation 98 % (95-98) 09/03/17 11:32 PT/INR, D-dimer PT 10.9 Seconds (9.4-12.1) 09/03/17 04:55 - Impressions Impressions Chest CTA 09/02/17 21:50 IMPRESSION: 1. No evidence of aortic dissection. 2. No evidence of pulmonary embolism. 3. Mild atelectasis within the lungs. No definite focal infiltrate is identified. 4. Stable nodule within the left lower lobe. 5. Fatty liver infiltration. D/ / Sen George MD / Sen George MD Interpreting Provider: Sen George MD Abdomen CTA 09/02/17 21:56 IMPRESSION: 1. No evidence of aortic dissection. 2. No evidence of pulmonary embolism. 3. Mild atelectasis within the lungs. No definite focal infiltrate is identified. 4. Stable nodule within the left lower lobe. 5. Fatty liver infiltration. D/ / Sen George MD / Sen George MD Interpreting Provider: Sen George MD Echocardiogram Limited Views 09/03/17 14:01 Impressions: LVEF 70%. Normal LV chamber size, wall thickness and function. Midl to moderate concentric left ventricular hypertrophy. Left Ventricular Wall Motion: Rest Echo Findings All wall segments showed normal motion. Findings: Study Quality * Technically adequate exam. ECG Findings * Normal sinus rhythm. Left Ventricle * LVEF 70%. * Normal LV chamber size and function. * Midl to moderate concentric left ventricular hypertrophy. Right Ventricle * Normal right ventricular structure and function. Left Atrium * Mildly dilated left atrium. Right Atrium * Normal right atrial size. Aorta * Normally sized aortic root. Pericardium * There is a trivial pericardial effusion present. IVC * Normal IVC dimensions and inspiratory collapse. - Attending Attestation I have seen and examined pt independently, I have discussed with Resident physician Dr Guerra regarding the management plan. Agree with the documentation. Pt has Hx of COPD, increased SOB with chest pain. CP free now. Consider COPD exacerbation but pt has no wheezing now. PE has been ruled out by CTA. elevated troponin, needs to r/o ACS as well. Cardio consult appreciated, covered with lovenox sc BID now, cont to trend troponin. Cont supportive and symptomatic treatment. ABG reviewed, unremarkable. Low rate IVF b/o elevated lactate, which is trend down but still high.
[2017-09-03] MEDS ORDERED: Acetaminophen 325 MG TABLET PO PRN (13:01)
[2017-09-03] MEDS: dilTIAZem HCl 60 MG TABLET PO SCH ×3 (13:07→21:26)
[2017-09-03] MEDS ORDERED: Aspirin Enteric Coated 325 MG Tablet PO ONE (13:18)
--- NOTE | 2017-09-03 13:36 | Cardiology Consult Note ---
Date of Encounter: 09/03/17 Time of Encounter: 13:34 Assessment and Plan (1) Elevated troponin Current Visit: Yes Status: Acute Troponin negative x 3, then 0.05, 0.08 in setting of COPD exacerbation-- tachypneic, tachycardic, WBC 21.9, lactic acid as high as 7.3. Suspect demand ischemia, nondiagnostic for ACS. Chest CTA ruled out PE or dissection. Continue to trend troponin since they are uptrending. Started on therapeutic Lovenox BID. Pt reports chest pain, mixed typical and atypical symptoms--left sided, radiating to back, left arm numbness, but pain was constant for almost 12 hours and relieved with Tylenol. EKG without ischemic changes. Echo 02/2017 EF preserved. Recommend trending troponin, recheck a limited echo. Multiple risk factors for CAD include HTN, HLD, prior tobacco abuse, DM, premature family hx, obesity. Negative stress test 05/2015, but no recent ischemic evaluation. Await results of troponin and echo for further recommendations. Cardiac rehab not warranted currently. (2) Acute exacerbation of chronic obstructive airways disease Current Visit: No Status: Acute Management per primary team. (3) Chest pain Current Visit: Yes Status: Resolved As above. Could be secondary to COPD exacerbation, but with uptrending troponins , will continue to trend. Cover with therapeutic Lovenox in the meantime. Check limited echo to evaluate EF, previously preserved. No ischemic EKG changes. Qualifiers: Chest pain type: unspecified Qualified Code(s): R07.9 - Chest pain, unspecified Discussion w patient/family: The assessment and plan as outlined above was discussed with the patient and/or family members who expressed understanding and agreement. All questions were answered. Thank you for involving us in the care of your patient. Please call with any questions. I will discuss all the above with Dr. Ritchie and make changes as necessary. History of Present Illness Consult date: 09/03/17 Requesting physician: Girma Guerra Consult reason: elevated troponin, dyspnea, chest pain Chief complaint: dyspnea, chest pain History of present illness: Ms. Banda is a 51 year old female with PMH of HTN, DM, HLD, COPD, previous tobacco abuse that presented with acute onset of shortness of breath along with chest pain started yesterday. She states the chest pain started around noon yesterday, left sided achy in nature that radiates to her back associated with arm numbness. She states the pain was constant until 11PM when she received Tylenol, which relieved it. WBC 21.9, lactic acid as high as 7.3. Troponins negative x 3, then 0.05, 0.08. On exam, pt is diaphoretic, having tachypnea and is tachycardic SR HR 120s. Chest CTA ruled out PE and dissection. She reports left chest aching radiating to her back currently, described as "mild pain". EKG unchanged from prior. She is being treated for COPD exacerbation. Cardiology consulted for further recommendations. Echo 02/2017 EF 60%, mild LVDD , moderate concentric LVH, no significant valvular dysfunction. She had a stress test 05/2015 and perfusion imaging was negative for ischemia or infarct. She denies ever having a LHC in the past. She reports significant family hx of CAD--4 brothers from [place], earliest age 50 and her mother from [place] in her 50s. Past Med Surg Social Fam HX - Past Medical History Medical history: asthma, COPD, diabetes, GERD, hyperlipidemia, hypertension, TIA Psychiatric history: no psych history - Past Surgical History Surgical History: appendectomy - Social History Smoking Status: Former smoker Smokeless Tobacco Status: No Alcohol use: none Drug use: none - Family History Mother Family Member Ethnicity: Non- Living Status: Age at : 60 Cause of : [place] Hx Family Cardiac Disorders: Yes Hx Family Respiratory Disorders: No Hx Family Cancer: No Hx Family GI Disorders: No Hx Family Endocrine Disorder: Yes (DM) Hx Family Neuromuscular Disorders: No Hx Family Neurologic Disorders: No Hx Family HEENT Disorders: No Hx Family Autoimmune Disorders: No Medications and Allergies Albuterol Sulfate [Proair Respiclick] 2 puff IH Q4H PRN 01/31/16 [History] Atorvastatin Calcium [Lipitor] 20 mg PO DAILY 01/31/16 [History] Chlorthalidone 25 mg PO DAILY 01/31/16 [History] Gabapentin [Neurontin] 300 mg PO HS 01/31/16 [History] Lisinopril [Zestril] 40 mg PO BID 01/31/16 [History] SitaGLIPtin [Januvia] 100 mg PO DAILY 01/31/16 [History] Spironolactone [Aldactone] 100 mg PO DAILY 01/31/16 [History] amLODIPine [Norvasc] 10 mg PO DAILY 01/31/16 [History] metFORMIN [Glucophage] 1,000 mg PO BIDWM 01/31/16 [History] Budesonide/Formoterol 160/4.5 [Symbicort 160/4.5] 2 puff IH BIDR 04/07/16 [ History] Sucralfate [Carafate] 1 gm PO BID 04/07/16 [History] Doxazosin [Cardura] 4 mg PO HS 01/19/17 [History] cloNIDine HCl [Clonidine HCl] 0.15 mg PO 0800,1200 01/19/17 [History] cloNIDine HCl [Clonidine HCl] 0.3 mg PO HS 01/19/17 [History] PredniSONE [Deltasone] 20 mg PO DAILY #10 tablet 08/24/17 [Rx] Escitalopram [Lexapro] 10 mg PO DAILY 09/02/17 [History] Hydralazine HCl 50 mg PO TID 09/02/17 [History] Minoxidil 2.5 mg PO BID 09/02/17 [History] Montelukast [Singulair] 10 mg PO HS 09/02/17 [History] Pantoprazole Sodium [Protonix] 40 mg PO BID 09/02/17 [History] Tiotropium [Spiriva] 1 puff IH DAILY 09/02/17 [History] 3 Allergy/AdvReac Type Severity Reaction Status Date / Time Beta-Blockers Allergy Difficulty Verified 08/24/17 08:52 (Beta-Adrenergic Bloc Breathing All Systems Review: A 10-system review of systems was performed and is negative for pertinent findings except as documented above in the HPI. - Cardiovascular Cardiovascular: as per HPI, diaphoresis, dyspnea at rest, dyspnea on exertion, radiating jaw, neck or arm pain, orthopnea - Respiratory Respiratory: cough, dyspnea Physical Examination Vital Signs, Last 4 Hours Temp Pulse Resp BP Pulse Ox 09/03/17 11:49 16 96 09/03/17 10:54 98.0 F 103 16 130/66 97 Vital Signs Temp Pulse Resp BP Pulse Ox 09/03/17 11:49 16 96 09/03/17 10:54 98.0 F 103 16 130/66 97 09/03/17 07:59 16 98 09/03/17 07:53 98.1 F 91 16 127/66 98 09/03/17 04:10 18 991 09/03/17 04:00 98.6 F 99 17 121/65 98 09/03/17 00:00 98.0 F 108 17 139/69 98 09/02/17 21:32 98.0 F 120 24 149/74 97 09/02/17 20:21 20 97 09/02/17 19:23 98.6 F 133 24 180/90 95 09/02/17 15:50 97.7 F 116 15 178/80 96 09/02/17 14:43 18 152/83 09/02/17 14:22 18 98 Intake and Output 09/02/17 09/03/17 09/03/17 23:59 07:59 15:59 Intake Total 240 / 240 2550 / 2550 240 / 240 Output Total 800 / 800 Balance 240 / 240 1750 / 1750 240 / 240 Intake: IV Fluids 1050 / 1050 0.9 % Sodium Chloride 1,000 ML 1000 / 1000 @ 70 mls/hr IVC .[id number] [facility] Rx #:[id number] Zosyn 3.375 GM In Dextrose 5% ( 50 / 50 ADD-[place]) 50 ML @ 12.5 mls/ hr IVPB Q6H [facility] Rx#:[id number] Oral 240 / 240 1500 / 1500 240 / 240 Output: Urine 800 / 800 Other: Meal Breakfast Percent of Meal Consumed 100% # Voids 1 Weight 76 kg Blood Glucose* 291 185 297 Patient Weight 09/03/17 23:59 Weight 76 kg General: Conversant, Other (diaphoretic, conversational dyspnea) HEENT: Atraumatic, Normocephaly, Mucus Membranes Moist Neck: Normal carotid pulses Cardiac: Reg Rate and Rhythm, Normal S1 and S2, No Murmur Lungs: Other (diminished, wheezes) Neuro: Alert and responsive, No focal deficits noted Abdomen: Soft, Non-Tender Skin: No rashes noted on visualized skin Musculoskeletal: No Chest Wall Tenderness Extremities: No Clubbing, No Cyanosis, No Edema, Normal Pulses Results 09/03/17 04:55 09/03/17 04:55 Lab Results 09/02/17 09/02/17 09/03/17 18:01 23:25 04:55 WBC 21.9 H D Hgb 12.2 Hct 37.4 Plt Count 240 INR APTT Sodium Potassium Chloride Carbon Dioxide BUN Creatinine Glucose Calcium Magnesium Total Bilirubin AST ALT Alkaline Phosphatase Troponin I 0.01 0.02 B-Natriuretic Peptide 09/03/17 09/03/17 09/03/17 04:55 04:55 04:55 WBC Hgb Hct Plt Count INR 1.0 APTT 25.6 L Sodium 137 Potassium 4.1 Chloride 109 Carbon Dioxide 18 L BUN 13 Creatinine 0.66 Glucose 213 H Calcium 8.8 Magnesium 1.7 Total Bilirubin 0.4 AST 17 ALT 22 Alkaline Phosphatase 82 Troponin I B-Natriuretic Peptide 196 H 09/03/17 09/03/17 04:55 12:09 WBC Hgb Hct Plt Count INR APTT Sodium Potassium Chloride Carbon Dioxide BUN Creatinine Glucose Calcium Magnesium Total Bilirubin AST ALT Alkaline Phosphatase Troponin I 0.05 H* 0.08 H* B-Natriuretic Peptide Short CBC 09/03/17 09/03/17 09/03/17 Range/Units 12:09 12:09 11:32 WBC (4.3-11.1) K/mcL RBC (3.82-4.97) M/mcL Hgb (11.5-15.4) g/dL Hct (35.3-44.9) % MCV (83.0-100.0) fL MCH (28.0-33.3) pg MCHC (31.6-35.5) g/dL RDW (11.5-14.5) % Plt Count (140-400) K/mcL MPV (9.4-12.4) fL Immature Gran % (0-4) % Seg Neutrophils % % Lymphocytes % % Monocytes % % Eosinophils % % Basophils % % Neutrophils # (1.6-8.9) K/mcL Lymphocytes # (0.6-4.6) K/mcL Monocytes # (0.0-1.3) K/mcL Eosinophils # (0.0-0.6) K/mcL Basophils # (0.0-0.2) K/mcL PT (9.4-12.1) Seconds INR APTT (26.0-36.0) Seconds ABG pH 7.35 (7.32-7.45) pH Units ABG pCO2 35 (35-45) mmHg ABG pO2 110 H (85-104) mmHg ABG HCO3 20 L (21-27) mEq/L ABG Total CO2 21 (20-26) mEq/L ABG O2 Saturation 98 (95-98) % ABG Base Excess -5 L (-2 to 3) mEq/L Sodium (136-145) mEq/L Potassium (3.5-4.5) mEq/L Chloride (98-109) mEq/L Carbon Dioxide (19-29) mEq/L BUN (7-20) mg/dL Creatinine (0.57-1.11) mg/dL Est GFR ( Amer) (> 60) Est GFR (Non-Af Amer) (> 60) BUN/Creatinine Ratio (6-26) Glucose (70-99) mg/dL Est Mean Plasma Glucose mg/dl Hemoglobin A1c ( - 5.6) % Calculated Osmolality (280-300) Lactic Acid 4.1 H* (0.5-2.2) mmol/L Calcium (8.6-10.8) mg/dL Phosphorus (2.3-4.7) mg/dL Magnesium (1.6-2.6) mg/dL Total Bilirubin (0.2-1.2) mg/dL AST (5-34) Units/L ALT (0-55) Units/L Alkaline Phosphatase (38-126) Units/L Troponin I 0.08 H* (0-0.03) ng/mL B-Natriuretic Peptide (0-100) pg/mL Serum Total Protein (6.0-8.3) g/dL Albumin (3.5-5.0) g/dL Globulin (2.4-3.5) g/dL Albumin/Globulin Ratio (1.1-2.2) Triglycerides (< 150) mg/dL Cholesterol (< 200) mg/dL LDL Cholesterol, Calc (0-99) mg/dL VLDL Cholesterol, Calc (< 31) mg/dL HDL Cholesterol (40-59) mg/dL Cholesterol/HDL Ratio (0-4.9) Urine Color (Yellow) Urine Clarity (Clear) Urine pH (5.0-8.0) pH Units Ur Specific [place] (1.010-1.025) Urine Protein (Neg-Trace) mg/dL Urine Glucose (UA) (Normal) mg/dL Urine Ketones (Negative) mg/dL Urine Blood (Negative) Urine Nitrite (Negative) Urine Bilirubin (Negative) Urine Urobilinogen (Normal) mg/dL Ur Leukocyte Esterase (Negative) Urine Microscopic RBC (0-3) per hpf Urine Microscopic WBC (0-3) per hpf Ur Squamous Epith Cells (None-Few) per lpf Urine Bacteria (None-Few) per hpf Hyaline Casts (None-Few) per lpf Ur Culture Indicated? (NO) 09/03/17 09/03/17 09/03/17 Range/Units 04:55 04:55 04:55 WBC (4.3-11.1) K/mcL RBC (3.82-4.97) M/mcL Hgb (11.5-15.4) g/dL Hct (35.3-44.9) % MCV (83.0-100.0) fL MCH (28.0-33.3) pg MCHC (31.6-35.5) g/dL RDW (11.5-14.5) % Plt Count (140-400) K/mcL MPV (9.4-12.4) fL Immature Gran % (0-4) % Seg Neutrophils % % Lymphocytes % % Monocytes % % Eosinophils % % Basophils % % Neutrophils # (1.6-8.9) K/mcL Lymphocytes # (0.6-4.6) K/mcL Monocytes # (0.0-1.3) K/mcL Eosinophils # (0.0-0.6) K/mcL Basophils # (0.0-0.2) K/mcL PT (9.4-12.1) Seconds INR APTT (26.0-36.0) Seconds ABG pH (7.32-7.45) pH Units ABG pCO2 (35-45) mmHg ABG pO2 (85-104) mmHg ABG HCO3 (21-27) mEq/L ABG Total CO2 (20-26) mEq/L ABG O2 Saturation (95-98) % ABG Base Excess (-2 to 3) mEq/L Sodium (136-145) mEq/L Potassium (3.5-4.5) mEq/L Chloride (98-109) mEq/L Carbon Dioxide (19-29) mEq/L BUN (7-20) mg/dL Creatinine (0.57-1.11) mg/dL Est GFR ( Amer) (> 60) Est GFR (Non-Af Amer) (> 60) BUN/Creatinine Ratio (6-26) Glucose (70-99) mg/dL Est Mean Plasma Glucose 183 mg/dl Hemoglobin A1c 8.0 H ( - 5.6) % Calculated Osmolality (280-300) Lactic Acid (0.5-2.2) mmol/L Calcium (8.6-10.8) mg/dL Phosphorus (2.3-4.7) mg/dL Magnesium (1.6-2.6) mg/dL Total Bilirubin (0.2-1.2) mg/dL AST (5-34) Units/L ALT (0-55) Units/L Alkaline Phosphatase (38-126) Units/L Troponin I 0.05 H* (0-0.03) ng/mL B-Natriuretic Peptide 196 H (0-100) pg/mL Serum Total Protein (6.0-8.3) g/dL Albumin (3.5-5.0) g/dL Globulin (2.4-3.5) g/dL Albumin/Globulin Ratio (1.1-2.2) Triglycerides (< 150) mg/dL Cholesterol (< 200) mg/dL LDL Cholesterol, Calc (0-99) mg/dL VLDL Cholesterol, Calc (< 31) mg/dL HDL Cholesterol (40-59) mg/dL Cholesterol/HDL Ratio (0-4.9) Urine Color (Yellow) Urine Clarity (Clear) Urine pH (5.0-8.0) pH Units Ur Specific [place] (1.010-1.025) Urine Protein (Neg-Trace) mg/dL Urine Glucose (UA) (Normal) mg/dL Urine Ketones (Negative) mg/dL Urine Blood (Negative) Urine Nitrite (Negative) Urine Bilirubin (Negative) Urine Urobilinogen (Normal) mg/dL Ur Leukocyte Esterase (Negative) Urine Microscopic RBC (0-3) per hpf Urine Microscopic WBC (0-3) per hpf Ur Squamous Epith Cells (None-Few) per lpf Urine Bacteria (None-Few) per hpf Hyaline Casts (None-Few) per lpf Ur Culture Indicated? (NO) 09/03/17 09/03/17 09/03/17 Range/Units 04:55 04:55 04:55 WBC 21.9 H D (4.3-11.1) K/mcL RBC 4.47 (3.82-4.97) M/mcL Hgb 12.2 (11.5-15.4) g/dL Hct 37.4 (35.3-44.9) % MCV 83.7 (83.0-100.0) fL MCH 27.3 L (28.0-33.3) pg MCHC 32.6 (31.6-35.5) g/dL RDW 12.8 (11.5-14.5) % Plt Count 240 (140-400) K/mcL MPV 9.7 (9.4-12.4) fL Immature Gran % 1.2 (0-4) % Seg Neutrophils % 92.9 % Lymphocytes % 3.9 % Monocytes % 1.9 % Eosinophils % 0.0 % Basophils % 0.1 % Neutrophils # 20.4 H (1.6-8.9) K/mcL Lymphocytes # 0.9 (0.6-4.6) K/mcL Monocytes # 0.4 (0.0-1.3) K/mcL Eosinophils # 0.0 (0.0-0.6) K/mcL Basophils # 0.0 (0.0-0.2) K/mcL PT 10.9 (9.4-12.1) Seconds INR 1.0 APTT 25.6 L (26.0-36.0) Seconds ABG pH (7.32-7.45) pH Units ABG pCO2 (35-45) mmHg ABG pO2 (85-104) mmHg ABG HCO3 (21-27) mEq/L ABG Total CO2 (20-26) mEq/L ABG O2 Saturation (95-98) % ABG Base Excess (-2 to 3) mEq/L Sodium 137 (136-145) mEq/L Potassium 4.1 (3.5-4.5) mEq/L Chloride 109 (98-109) mEq/L Carbon Dioxide 18 L (19-29) mEq/L BUN 13 (7-20) mg/dL Creatinine 0.66 (0.57-1.11) mg/dL Est GFR ( Amer) > 60 (> 60) Est GFR (Non-Af Amer) > 60 (> 60) BUN/Creatinine Ratio 20 (6-26) Glucose 213 H (70-99) mg/dL Est Mean Plasma Glucose mg/dl Hemoglobin A1c ( - 5.6) % Calculated Osmolality 290 (280-300) Lactic Acid (0.5-2.2) mmol/L Calcium 8.8 (8.6-10.8) mg/dL Phosphorus 2.6 (2.3-4.7) mg/dL Magnesium 1.7 (1.6-2.6) mg/dL Total Bilirubin 0.4 (0.2-1.2) mg/dL AST 17 (5-34) Units/L ALT 22 (0-55) Units/L Alkaline Phosphatase 82 (38-126) Units/L Troponin I (0-0.03) ng/mL B-Natriuretic Peptide (0-100) pg/mL Serum Total Protein 6.2 (6.0-8.3) g/dL Albumin 3.0 L (3.5-5.0) g/dL Globulin 3.2 (2.4-3.5) g/dL Albumin/Globulin Ratio 0.9 L (1.1-2.2) Triglycerides 101 (< 150) mg/dL Cholesterol 193 (< 200) mg/dL LDL Cholesterol, Calc 125 H (0-99) mg/dL VLDL Cholesterol, Calc 20 (< 31) mg/dL HDL Cholesterol 48 (40-59) mg/dL Cholesterol/HDL Ratio 4.0 (0-4.9) Urine Color (Yellow) Urine Clarity (Clear) Urine pH (5.0-8.0) pH Units Ur Specific [place] (1.010-1.025) Urine Protein (Neg-Trace) mg/dL Urine Glucose (UA) (Normal) mg/dL Urine Ketones (Negative) mg/dL Urine Blood (Negative) Urine Nitrite (Negative) Urine Bilirubin (Negative) Urine Urobilinogen (Normal) mg/dL Ur Leukocyte Esterase (Negative) Urine Microscopic RBC (0-3) per hpf Urine Microscopic WBC (0-3) per hpf Ur Squamous Epith Cells (None-Few) per lpf Urine Bacteria (None-Few) per hpf Hyaline Casts (None-Few) per lpf Ur Culture Indicated? (NO) 09/02/17 09/02/17 09/02/17 Range/Units 23:40 23:25 23:25 WBC (4.3-11.1) K/mcL RBC (3.82-4.97) M/mcL Hgb (11.5-15.4) g/dL Hct (35.3-44.9) % MCV (83.0-100.0) fL MCH (28.0-33.3) pg MCHC (31.6-35.5) g/dL RDW (11.5-14.5) % Plt Count (140-400) K/mcL MPV (9.4-12.4) fL Immature Gran % (0-4) % Seg Neutrophils % % Lymphocytes % % Monocytes % % Eosinophils % % Basophils % % Neutrophils # (1.6-8.9) K/mcL Lymphocytes # (0.6-4.6) K/mcL Monocytes # (0.0-1.3) K/mcL Eosinophils # (0.0-0.6) K/mcL Basophils # (0.0-0.2) K/mcL PT (9.4-12.1) Seconds INR APTT (26.0-36.0) Seconds ABG pH (7.32-7.45) pH Units ABG pCO2 (35-45) mmHg ABG pO2 (85-104) mmHg ABG HCO3 (21-27) mEq/L ABG Total CO2 (20-26) mEq/L ABG O2 Saturation (95-98) % ABG Base Excess (-2 to 3) mEq/L Sodium (136-145) mEq/L Potassium (3.5-4.5) mEq/L Chloride (98-109) mEq/L Carbon Dioxide (19-29) mEq/L BUN (7-20) mg/dL Creatinine (0.57-1.11) mg/dL Est GFR ( Amer) (> 60) Est GFR (Non-Af Amer) (> 60) BUN/Creatinine Ratio (6-26) Glucose (70-99) mg/dL Est Mean Plasma Glucose mg/dl Hemoglobin A1c ( - 5.6) % Calculated Osmolality (280-300) Lactic Acid 6.6 H* (0.5-2.2) mmol/L Calcium (8.6-10.8) mg/dL Phosphorus (2.3-4.7) mg/dL Magnesium (1.6-2.6) mg/dL Total Bilirubin (0.2-1.2) mg/dL AST (5-34) Units/L ALT (0-55) Units/L Alkaline Phosphatase (38-126) Units/L Troponin I 0.02 (0-0.03) ng/mL B-Natriuretic Peptide (0-100) pg/mL Serum Total Protein (6.0-8.3) g/dL Albumin (3.5-5.0) g/dL Globulin (2.4-3.5) g/dL Albumin/Globulin Ratio (1.1-2.2) Triglycerides (< 150) mg/dL Cholesterol (< 200) mg/dL LDL Cholesterol, Calc (0-99) mg/dL VLDL Cholesterol, Calc (< 31) mg/dL HDL Cholesterol (40-59) mg/dL Cholesterol/HDL Ratio (0-4.9) Urine Color Yellow (Yellow) Urine Clarity Clear (Clear) Urine pH 5.5 (5.0-8.0) pH Units Ur Specific [place] > 1.030 H (1.010-1.025) Urine Protein Negative (Neg-Trace) mg/dL Urine Glucose (UA) >=1000 H (Normal) mg/dL Urine Ketones Negative (Negative) mg/dL Urine Blood Trace H (Negative) Urine Nitrite Negative (Negative) Urine Bilirubin Negative (Negative) Urine Urobilinogen Normal (Normal) mg/dL Ur Leukocyte Esterase Negative (Negative) Urine Microscopic RBC 0-3 (0-3) per hpf Urine Microscopic WBC 0-3 (0-3) per hpf Ur Squamous Epith Cells Moderate H (None-Few) per lpf Urine Bacteria None Seen (None-Few) per hpf Hyaline Casts None Seen (None-Few) per lpf Ur Culture Indicated? NO (NO) 09/02/17 09/02/17 09/02/17 Range/Units 21:13 18:01 18:01 WBC (4.3-11.1) K/mcL RBC (3.82-4.97) M/mcL Hgb (11.5-15.4) g/dL Hct (35.3-44.9) % MCV (83.0-100.0) fL MCH (28.0-33.3) pg MCHC (31.6-35.5) g/dL RDW (11.5-14.5) % Plt Count (140-400) K/mcL MPV (9.4-12.4) fL Immature Gran % (0-4) % Seg Neutrophils % % Lymphocytes % % Monocytes % % Eosinophils % % Basophils % % Neutrophils # (1.6-8.9) K/mcL Lymphocytes # (0.6-4.6) K/mcL Monocytes # (0.0-1.3) K/mcL Eosinophils # (0.0-0.6) K/mcL Basophils # (0.0-0.2) K/mcL PT (9.4-12.1) Seconds INR APTT (26.0-36.0) Seconds ABG pH (7.32-7.45) pH Units ABG pCO2 (35-45) mmHg ABG pO2 (85-104) mmHg ABG HCO3 (21-27) mEq/L ABG Total CO2 (20-26) mEq/L ABG O2 Saturation (95-98) % ABG Base Excess (-2 to 3) mEq/L Sodium (136-145) mEq/L Potassium (3.5-4.5) mEq/L Chloride (98-109) mEq/L Carbon Dioxide (19-29) mEq/L BUN (7-20) mg/dL Creatinine (0.57-1.11) mg/dL Est GFR ( Amer) (> 60) Est GFR (Non-Af Amer) (> 60) BUN/Creatinine Ratio (6-26) Glucose (70-99) mg/dL Est Mean Plasma Glucose mg/dl Hemoglobin A1c ( - 5.6) % Calculated Osmolality (280-300) Lactic Acid 7.3 H* 3.8 H (0.5-2.2) mmol/L Calcium (8.6-10.8) mg/dL Phosphorus (2.3-4.7) mg/dL Magnesium (1.6-2.6) mg/dL Total Bilirubin (0.2-1.2) mg/dL AST (5-34) Units/L ALT (0-55) Units/L Alkaline Phosphatase (38-126) Units/L Troponin I 0.01 (0-0.03) ng/mL B-Natriuretic Peptide (0-100) pg/mL Serum Total Protein (6.0-8.3) g/dL Albumin (3.5-5.0) g/dL Globulin (2.4-3.5) g/dL Albumin/Globulin Ratio (1.1-2.2) Triglycerides (< 150) mg/dL Cholesterol (< 200) mg/dL LDL Cholesterol, Calc (0-99) mg/dL VLDL Cholesterol, Calc (< 31) mg/dL HDL Cholesterol (40-59) mg/dL Cholesterol/HDL Ratio (0-4.9) Urine Color (Yellow) Urine Clarity (Clear) Urine pH (5.0-8.0) pH Units Ur Specific [place] (1.010-1.025) Urine Protein (Neg-Trace) mg/dL Urine Glucose (UA) (Normal) mg/dL Urine Ketones (Negative) mg/dL Urine Blood (Negative) Urine Nitrite (Negative) Urine Bilirubin (Negative) Urine Urobilinogen (Normal) mg/dL Ur Leukocyte Esterase (Negative) Urine Microscopic RBC (0-3) per hpf Urine Microscopic WBC (0-3) per hpf Ur Squamous Epith Cells (None-Few) per lpf Urine Bacteria (None-Few) per hpf Hyaline Casts (None-Few) per lpf Ur Culture Indicated? (NO) 09/02/17 09/02/17 09/02/17 Range/Units 12:53 12:53 12:53 WBC (4.3-11.1) K/mcL RBC 4.84 (3.82-4.97) M/mcL Hgb (11.5-15.4) g/dL Hct (35.3-44.9) % MCV 81.6 L (83.0-100.0) fL MCH 27.5 L (28.0-33.3) pg MCHC 33.7 (31.6-35.5) g/dL RDW 12.1 (11.5-14.5) % Plt Count (140-400) K/mcL MPV 9.1 L (9.4-12.4) fL Immature Gran % 1.8 (0-4) % Seg Neutrophils % 66.7 % Lymphocytes % 20.4 % Monocytes % 7.2 % Eosinophils % 3.2 % Basophils % 0.7 % Neutrophils # (1.6-8.9) K/mcL Lymphocytes # 2.7 (0.6-4.6) K/mcL Monocytes # 1.0 (0.0-1.3) K/mcL Eosinophils # 0.4 (0.0-0.6) K/mcL Basophils # 0.1 (0.0-0.2) K/mcL PT (9.4-12.1) Seconds INR APTT (26.0-36.0) Seconds ABG pH (7.32-7.45) pH Units ABG pCO2 (35-45) mmHg ABG pO2 (85-104) mmHg ABG HCO3 (21-27) mEq/L ABG Total CO2 (20-26) mEq/L ABG O2 Saturation (95-98) % ABG Base Excess (-2 to 3) mEq/L Sodium 136 (136-145) mEq/L Potassium 3.9 (3.5-4.5) mEq/L Chloride 103 (98-109) mEq/L Carbon Dioxide 24 (19-29) mEq/L BUN 12 (7-20) mg/dL Creatinine 0.74 (0.57-1.11) mg/dL Est GFR ( Amer) > 60 (> 60) Est GFR (Non-Af Amer) > 60 (> 60) BUN/Creatinine Ratio 16 (6-26) Glucose 166 H (70-99) mg/dL Est Mean Plasma Glucose mg/dl Hemoglobin A1c ( - 5.6) % Calculated Osmolality 286 (280-300) Lactic Acid (0.5-2.2) mmol/L Calcium 8.9 (8.6-10.8) mg/dL Phosphorus (2.3-4.7) mg/dL Magnesium (1.6-2.6) mg/dL Total Bilirubin (0.2-1.2) mg/dL AST (5-34) Units/L ALT (0-55) Units/L Alkaline Phosphatase (38-126) Units/L Troponin I 0.00 (0-0.03) ng/mL B-Natriuretic Peptide (0-100) pg/mL Serum Total Protein (6.0-8.3) g/dL Albumin (3.5-5.0) g/dL Globulin (2.4-3.5) g/dL Albumin/Globulin Ratio (1.1-2.2) Triglycerides (< 150) mg/dL Cholesterol (< 200) mg/dL LDL Cholesterol, Calc (0-99) mg/dL VLDL Cholesterol, Calc (< 31) mg/dL HDL Cholesterol (40-59) mg/dL Cholesterol/HDL Ratio (0-4.9) Urine Color (Yellow) Urine Clarity (Clear) Urine pH (5.0-8.0) pH Units Ur Specific [place] (1.010-1.025) Urine Protein (Neg-Trace) mg/dL Urine Glucose (UA) (Normal) mg/dL Urine Ketones (Negative) mg/dL Urine Blood (Negative) Urine Nitrite (Negative) Urine Bilirubin (Negative) Urine Urobilinogen (Normal) mg/dL Ur Leukocyte Esterase (Negative) Urine Microscopic RBC (0-3) per hpf Urine Microscopic WBC (0-3) per hpf Ur Squamous Epith Cells (None-Few) per lpf Urine Bacteria (None-Few) per hpf Hyaline Casts (None-Few) per lpf Ur Culture Indicated? (NO) 09/02/17 Range/Units 12:53 WBC (4.3-11.1) K/mcL RBC (3.82-4.97) M/mcL Hgb (11.5-15.4) g/dL Hct (35.3-44.9) % MCV (83.0-100.0) fL MCH (28.0-33.3) pg MCHC (31.6-35.5) g/dL RDW (11.5-14.5) % Plt Count (140-400) K/mcL MPV (9.4-12.4) fL Immature Gran % (0-4) % Seg Neutrophils % % Lymphocytes % % Monocytes % % Eosinophils % % Basophils % % Neutrophils # (1.6-8.9) K/mcL Lymphocytes # (0.6-4.6) K/mcL Monocytes # (0.0-1.3) K/mcL Eosinophils # (0.0-0.6) K/mcL Basophils # (0.0-0.2) K/mcL PT 10.0 (9.4-12.1) Seconds INR 0.9 APTT 25.5 L (26.0-36.0) Seconds ABG pH (7.32-7.45) pH Units ABG pCO2 (35-45) mmHg ABG pO2 (85-104) mmHg ABG HCO3 (21-27) mEq/L ABG Total CO2 (20-26) mEq/L ABG O2 Saturation (95-98) % ABG Base Excess (-2 to 3) mEq/L Sodium (136-145) mEq/L Potassium (3.5-4.5) mEq/L Chloride (98-109) mEq/L Carbon Dioxide (19-29) mEq/L BUN (7-20) mg/dL Creatinine (0.57-1.11) mg/dL Est GFR ( Amer) (> 60) Est GFR (Non-Af Amer) (> 60) BUN/Creatinine Ratio (6-26) Glucose (70-99) mg/dL Est Mean Plasma Glucose mg/dl Hemoglobin A1c ( - 5.6) % Calculated Osmolality (280-300) Lactic Acid (0.5-2.2) mmol/L Calcium (8.6-10.8) mg/dL Phosphorus (2.3-4.7) mg/dL Magnesium (1.6-2.6) mg/dL Total Bilirubin (0.2-1.2) mg/dL AST (5-34) Units/L ALT (0-55) Units/L Alkaline Phosphatase (38-126) Units/L Troponin I (0-0.03) ng/mL B-Natriuretic Peptide (0-100) pg/mL Serum Total Protein (6.0-8.3) g/dL Albumin (3.5-5.0) g/dL Globulin (2.4-3.5) g/dL Albumin/Globulin Ratio (1.1-2.2) Triglycerides (< 150) mg/dL Cholesterol (< 200) mg/dL LDL Cholesterol, Calc (0-99) mg/dL VLDL Cholesterol, Calc (< 31) mg/dL HDL Cholesterol (40-59) mg/dL Cholesterol/HDL Ratio (0-4.9) Urine Color (Yellow) Urine Clarity (Clear) Urine pH (5.0-8.0) pH Units Ur Specific [place] (1.010-1.025) Urine Protein (Neg-Trace) mg/dL Urine Glucose (UA) (Normal) mg/dL Urine Ketones (Negative) mg/dL Urine Blood (Negative) Urine Nitrite (Negative) Urine Bilirubin (Negative) Urine Urobilinogen (Normal) mg/dL Ur Leukocyte Esterase (Negative) Urine Microscopic RBC (0-3) per hpf Urine Microscopic WBC (0-3) per hpf Ur Squamous Epith Cells (None-Few) per lpf Urine Bacteria (None-Few) per hpf Hyaline Casts (None-Few) per lpf Ur Culture Indicated? (NO) BMP 09/03/17 Range/Units 04:55 Sodium 137 (136-145) mEq/L Potassium 4.1 (3.5-4.5) mEq/L Chloride 109 (98-109) mEq/L Carbon Dioxide 18 L (19-29) mEq/L BUN 13 (7-20) mg/dL Creatinine 0.66 (0.57-1.11) mg/dL Glucose 213 H (70-99) mg/dL Calcium 8.8 (8.6-10.8) mg/dL Cardiac Enzymes 09/03/17 09/03/17 09/02/17 Range/Units 12:09 04:55 23:25 Troponin I 0.08 H* 0.05 H* 0.02 (0-0.03) ng/mL 09/02/17 Range/Units 18:01 Troponin I 0.01 (0-0.03) ng/mL Liver Function 09/03/17 Range/Units 04:55 Total Bilirubin 0.4 (0.2-1.2) mg/dL AST 17 (5-34) Units/L ALT 22 (0-55) Units/L Alkaline Phosphatase 82 (38-126) Units/L Albumin 3.0 L (3.5-5.0) g/dL Urine 09/02/17 Range/Units 23:40 Urine Color Yellow (Yellow) Urine Clarity Clear (Clear) Urine pH 5.5 (5.0-8.0) pH Units Ur Specific [place] > 1.030 H (1.010-1.025) Urine Protein Negative (Neg-Trace) mg/dL Urine Glucose (UA) >=1000 H (Normal) mg/dL Impressions Chest X-Ray 09/02/17 12:50 IMPRESSION: Stable cardiomegaly without acute cardiopulmonary findings. Previously noted nodule is not well appreciated on today's study. D/ / 09/02/2017 14:05:55 Araseli Thompson MD / amber Interpreting Provider: Araseli Thompson MD Chest CTA 09/02/17 21:50 IMPRESSION: 1. No evidence of aortic dissection. 2. No evidence of pulmonary embolism. 3. Mild atelectasis within the lungs. No definite focal infiltrate is identified. 4. Stable nodule within the left lower lobe. 5. Fatty liver infiltration. D/ / Sen George MD / Sen George MD Interpreting Provider: Sen George MD Abdomen CTA 09/02/17 21:56 IMPRESSION: 1. No evidence of aortic dissection. 2. No evidence of pulmonary embolism. 3. Mild atelectasis within the lungs. No definite focal infiltrate is identified. 4. Stable nodule within the left lower lobe. 5. Fatty liver infiltration. D/ / Sen George MD / Sen George MD Interpreting Provider: Sen George MD Active Medications Acetaminophen (Tylenol) 650 mg PO Q6HR PRN PRN Reason: Pain Stop: 03/05/18 13:02 Al Hydrox/Mg Hydrox/Simethicone (Maalox) 15 ml PO Q6HR PRN PRN Reason: Dyspepsia Stop: 03/04/18 17:05 Atorvastatin Calcium (Lipitor) 20 mg PO DAILY [facility] Stop: 03/05/18 09:01 Last Admin: 09/03/17 09:25 Dose: 20 mg Budesonide/Formoterol Fumarate (Symbicort) 2 puff IH BIDR ISIDRA PRN Reason: Protocol Stop: 03/04/18 22:01 Last Admin: 09/03/17 07:56 Dose: 2 puff Chlorthalidone (Chlorthalidone) 25 mg PO DAILY IS[facility]RA Stop: 03/05/18 09:01 Last Admin: 09/03/17 09:24 Dose: 25 mg Clonidine HCl (Clonidine Hcl) 0.3 mg PO HS [facility] Stop: 03/04/18 21:01 Last Admin: 09/02/17 20:10 Dose: 0.3 mg Clonidine HCl (Clonidine Hcl) 0.15 mg PO 0800,1200 [facility] Stop: 03/04/18 21:01 Last Admin: 09/03/17 13:08 Dose: 0.15 mg Dextrose/Water (Dextrose 50% (Syg)) 25 ml IVP AD PRN PRN Reason: Hypoglycemia Stop: 03/05/18 00:13 Diltiazem HCl (Cardizem) 60 mg PO QID [facility] Stop: 03/05/18 13:01 Last Admin: 09/03/17 13:07 Dose: 60 mg Doxazosin Mesylate (Cardura) 4 mg PO HS [facility] Stop: 03/04/18 21:01 Last Admin: 09/02/17 20:10 Dose: 4 mg Enoxaparin Sodium (Lovenox *Pharmacy Wt Based*) 80 mg 1 mg/kg (80 mg) SQ Q12HR [facility] PRN Reason: Protocol Stop: 03/05/18 13:46 Escitalopram Oxalate (Lexapro) 10 mg PO DAILY [facility] Stop: 03/05/18 09:01 Last Admin: 09/03/17 09:24 Dose: 10 mg Gabapentin (Neurontin) 300 mg PO HS [facility] Stop: 03/04/18 21:01 Last Admin: 09/02/17 20:10 Dose: 300 mg Glucagon (Glucagen) 1 mg IM ONCE PRN PRN Reason: Hypoglycemia Stop: 03/05/18 00:13 Glucose (Gluctose) 15 gm PO ONCE PRN PRN Reason: Hypoglycemia Stop: 03/05/18 00:13 Glucose (Gluctose) 30 gm PO ONCE PRN PRN Reason: Hypoglycemia Stop: 03/05/18 00:13 Hydralazine HCl (Hydralazine) 50 mg PO TID [facility] Stop: 03/04/18 21:01 Last Admin: 09/03/17 09:24 Dose: 50 mg Sodium Chloride (0.9 % Sodium Chloride) 1,000 mls @ 70 mls/hr IVC .[id number] [facility] Stop: 09/03/17 21:49 Last Admin: 09/03/17 11:31 Dose: 70 mls/hr Azithromycin 500 mg/ Dextrose 250 mls @ 252 mls/hr IVPB Q24H [facility] Stop: 03/04/18 18:01 Last Admin: 09/02/17 18:31 Dose: 252 mls/hr Dextrose (Dextrose 5%) 1,000 mls @ 100 mls/hr IVC .Q10H PRN PRN Reason: HYPOGLYCEMIA Stop: 03/05/18 00:13 Piperacillin Sod/Tazobactam (Sod 3.375 gm/ Dextrose) 50 mls @ 12.5 mls/hr IVPB Q6H [facility] Stop: 03/05/18 10:01 Last Admin: 09/03/17 11:32 Dose: 12.5 mls/hr Insulin Human Lispro (Humalog) 0 units SQ TIDAC [facility] PRN Reason: Protocol Stop: 03/05/18 00:16 Last Admin: 09/03/17 11:33 Dose: 10 units Levalbuterol HCl (Xopenex) 1.25 mg IH [id number] [facility] Stop: 03/04/18 20:01 Last Admin: 09/03/17 11:31 Dose: 1.25 mg Lisinopril (Zestril) 40 mg PO BID [facility] Stop: 03/04/18 21:01 Last Admin: 09/03/17 09:24 Dose: 40 mg Methylprednisolone (Solu-Medrol) 60 mg IVP Q6HR [facility] Stop: 03/05/18 06:37 Last Admin: 09/03/17 11:33 Dose: 60 mg Montelukast Sodium (Singulair) 10 mg PO HS [facility] Stop: 03/04/18 21:01 Last Admin: 09/02/17 20:10 Dose: 10 mg Morphine Sulfate (Morphine Sulfate) 2 mg IVP Q4HR PRN PRN Reason: Severe Pain (7-10) Stop: 03/04/18 17:05 Naloxone HCl (Narcan) 0.4 mg IVP Q2MIN PRN PRN Reason: Opioid Reversal Stop: 03/04/18 17:05 Omeprazole (Prilosec) 20 mg PO BIDAC [facility] Stop: 03/04/18 21:01 Spironolactone (Aldactone) 100 mg PO DAILY [facility] Stop: 03/05/18 09:01 Last Admin: 09/03/17 09:24 Dose: 100 mg Sucralfate (Carafate) 1 gm PO BID [facility] Stop: 03/04/18 21:01 Last Admin: 09/03/17 09:24 Dose: 1 gm Tiotropium Parsons (Spiriva) 18 mcg IH DAILY [facility] Stop: 03/05/18 09:01 Last Admin: 09/03/17 07:56 Dose: Not Given - Imaging and Cardiology Stress Test: report reviewed Echo: report reviewed - EKG Interpretation EKG results cardiology: personally reviewed (SR), other (12 hr tele AVG HR 102, SR) Consult Discharge Plan - Plan Referrals: Ailyn Delatorre, [employer] [Primary Care Provider] -
[2017-09-03] MEDS: Acetaminophen 325 MG TABLET PO PRN (14:32)
[2017-09-03] MEDS: *HR* Enoxaparin 80 MG/0.8 ML SYRINGE SQ SCH (14:33)
[2017-09-03] MEDS: Aspirin 81 MG TAB.CHEW PO SCH (14:33)
[2017-09-03] MEDS: Azithromycin 500 MG in D5% in Water 250 ML IVPB SCH (16:32)
--- NOTE | 2017-09-03 16:32 | Electrocardiograph Report ---
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
--- NOTE | 2017-09-03 18:41 | Electrocardiograph Report ---
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
[2017-09-03] MEDS: Gabapentin 300 MG CAPSULE PO SCH (21:25)
[2017-09-03] MEDS ORDERED: methylPREDNISolone 125 MG/2 ML VIAL IVP SCH (22:00)
[2017-09-04] MEDS: Piperacillin/Tazobactam 3.375 GM in D5% in Water 50 ML IVPB SCH ×2 (04:04→11:43)
[2017-09-04] MEDS: *HR* Enoxaparin 80 MG/0.8 ML SYRINGE SQ SCH ×2 (04:05→14:02)
[2017-09-04 04:45] LABS: Basophils % 0.2 %; Monocytes % 1.7 %; Red Cell Distribution Width 13.2 % (11.5-14.5)
[2017-09-04 04:47] LABS: Basophils # 0.1 K/mcL (0.0-0.2); Hematocrit 35.2 % (35.3-44.9); Hemoglobin 11.5 g/dL (11.5-15.4); Immature Granulocytes % 1.4 % (0-4); Lymphocytes % 3.2 %; Mean Corpuscular HGB Conc 32.7 g/dL (31.6-35.5); Mean Corpuscular Hemoglobin 27.3 pg (28.0-33.3); Mean Corpuscular Volume 83.6 fL (83.0-100.0); Monocytes # 0.5 K/mcL (0.0-1.3); Neutrophils # 24.8 K/mcL (1.6-8.9); Platelet Count 217 K/mcL (140-400); Red Blood Count 4.21 M/mcL (3.82-4.97); Segmented Neutrophils % 93.5 %
[2017-09-04 04:57] LABS: BUN/Creatinine Ratio 32 (6-26); Carbon Dioxide 18 mEq/L (19-29); Chloride 107 mEq/L (98-109); Glucose 277 mg/dL (70-99); Lymphocytes # 0.9 K/mcL (0.6-4.6); Osmolality,Calculated 302 (280-300); Sodium 138 mEq/L (136-145); eGFR For African Americans > 60 (> 60); eGFR For Non-African Americans > 60 (> 60)
[2017-09-04 04:59] LABS: Blood Urea Nitrogen 29 mg/dL (7-20); Potassium 4.3 mEq/L (3.5-4.5)
[2017-09-04] MEDS: Levalbuterol Neb 1.25 MG/3 ML IH SCH ×6 (05:07→23:49)
[2017-09-04 05:13] LABS: Platelet Estimate Normal (Normal)
[2017-09-04] MEDS: Tiotropium 18 MCG inhalation IH SCH (07:59)
[2017-09-04] MEDS: Budesonide/Formoterol 160/4.5 MDI IH SCH ×2 (07:59→20:29)
[2017-09-04] MEDS: methylPREDNISolone 125 MG/2 ML VIAL IVP SCH ×3 (09:05→17:19)
[2017-09-04] MEDS: dilTIAZem HCl 60 MG TABLET PO SCH ×2 (09:06→11:39)
[2017-09-04] MEDS: hydrALAZINE 25 MG TABLET PO SCH ×3 (09:06→21:29)
[2017-09-04] MEDS: Aspirin 81 MG TAB.CHEW PO SCH (09:06)
[2017-09-04] MEDS: Lisinopril 20 MG TABLET PO SCH ×2 (09:06→21:28)
[2017-09-04] MEDS: Sucralfate 1 GM TABLET PO SCH ×2 (09:06→21:28)
[2017-09-04] MEDS: Insulin LISPRO 300 UNITS/3 ML VIAL SQ SCH ×4 (09:08→21:30)
[2017-09-04] MEDS: cloNIDine HCl 0.1 MG TABLET PO SCH ×3 (09:13→21:28)
--- NOTE | 2017-09-04 09:45 | Internal Med Progress Note ---
Addendum entered and electronically signed by Girma Guerra DO 09/04/17 14: 48: Thyroid function is normal. The patient is very anxious. Increase Lexapro to 20mg daily. Begin to taper steroids. Original Note: <Girma Guerra - Last Filed: 09/04/17 14:02> Date of Encounter: 09/04/17 Time of Encounter: 09:43 - Assessment and plan (1) Acute exacerbation of chronic obstructive airways disease Current Visit: No Status: Acute Assessment and plan: Worsening dyspnea for the past week. Denies sputum production O2 sat 96-98 on 2L O2 nasal canula ABG: pH 7.35, pCO2 35, HCO3 20 CXR: Stable cardiomegaly without acute cardiopulmonary findings. No focal consolidation, pleural effusion, or pneumothorax CTA chest: No aortic dissection. No PE. Mild atelectasis within lungs, no definitive infiltrate. Stable left lower lobe nodule Lactic acid elevated: 3.8, 7.3, 6.6, 4.1. WBC 13.4 on admission. Procalcitonin pending. On Zosyn - Switch from azithromycin to doxycycline as she had a z-pack last week without resolution of her symptoms Continue prednisone and bronchodilators (2) Diarrhea Current Visit: Yes Status: Acute Assessment and plan: Reports having diarrhea last week that resolved Now reporting diarrhea last night and this morning Stool sample for GI panel - Negative Qualifiers: Diarrhea type: unspecified type Qualified Code(s): R19.7 - Diarrhea, unspecified (3) Chest pain Current Visit: Yes Status: Resolved Assessment and plan: Acute onset sternal and left-sided chest pain - radiation to back and left arm Responded to nitroglycerin in ED, but her BP dropped to 86/56. Not reporting chest pain now. Troponins slowly elevatin.00, 0.01, 0.02, 0.05, 0.08, 0.07 - likely demand ischemia in setting of COPD and PNA No ischemic EKG changes. CTA shows no PE Previous Echo from 03/15/17: LVEF EF60%. LV diastolic dysfunction with concentric LV hypertrophy. No significant valvular dysfunction. No pulmonary HTN. Previous Stress 06/22/15: Resting HTN worsening with exercise. No ischemia or prior infarct Reports previous ID "a couple years ago" without PCI Cardiology consulted - not diagnostic for ACS, signed off and will follow-up as outpatient Continue meds - Cardizem, Chlorthalidone, Clonidine, Lisinopril, Aldactone, Hydralazine, Lipitor Qualifiers: Chest pain type: unspecified Qualified Code(s): R07.9 - Chest pain, unspecified (4) Community acquired pneumonia Current Visit: No Status: Acute Assessment and plan: CXR and CTA shows no focal infiltrates, but still concern for early pneumonia WBC and LA elevated. Procalcitonin pending. Continue antibiotics, bronchodilators, and O2 Qualifiers: Laterality: unspecified laterality Qualified Code(s): J18.9 - Pneumonia, unspecified organism (5) HTN (hypertension) Current Visit: Yes Status: Acute Assessment and plan: Continue home meds Qualifiers: Hypertension type: essential hypertension Qualified Code(s): I10 - Essential (primary) hypertension (6) HLD (hyperlipidemia) Current Visit: No Status: Chronic Assessment and plan: Continue statin Qualifiers: Hyperlipidemia type: unspecified Qualified Code(s): E78.5 - Hyperlipidemia , unspecified (7) Diabetes Current Visit: No Status: Chronic Assessment and plan: Hold home meds. 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 Reports she is feeling better than yesterday, but continues to have dyspnea at rest and on exertion. Respirations are labored during our conversation. This morning she reports continued dyspnea and some mild back/left-sided pain that improves with tylenol. She is also reports watery -like diarrhea this morning. Denies syncope, light-headedness, N/V, constipation , dysuria, or leg pain/edema. - Constitutional Vitals: Temp Pulse Resp BP Pulse Ox 98.2 F 86 14 154/72 97 09/04/17 06:53 09/04/17 06:53 09/04/17 06:53 09/04/17 06:53 09/04/17 06:53 General appearance: Present: mild distress, A&O X 3, pleasant, answers questions appropriately - Head Head exam: Present: atraumatic, normocephalic - Eye Eye exam: Present: conjuntiva pink, sclera anicteric - Neck Neck exam general surgery: Present: supple, trachea midline. Absent: lymphadenopathy - Respiratory Respiratory exam: Present: decreased breath sounds, wheezes. Absent: accessory muscle use, rales, rhonchi - Cardiovascular Cardiovascular exam: Present: RRR, +S1, +S2. Absent: diastolic murmur, systolic murmur - GI/Abdominal GI/Abdominal exam: Present: normal bowel sounds, soft, no peritoneal signs. Absent: distended, tenderness - Extremities Exam Extremities exam: Present: warm, radial pulses palpable and symmetrical. Absent : calf tenderness, cyanotic, pedal edema - Neurological Exam Neurological exam: Present: CN II-XII intact, oriented X3, no focal deficits. Absent: facial droop, speech deficit - Skin Skin exam: Present: dry, intact Internal Medicine: Result - Labs CBC & Chem 7: 09/04/17 04:06 09/04/17 04:06 Labs: Short CBC 09/04/17 Range/Units 04:06 WBC 26.5 H (4.3-11.1) K/mcL Hgb 11.5 (11.5-15.4) g/dL Hct 35.2 L (35.3-44.9) % Plt Count 217 (140-400) K/mcL Neutrophils # 24.8 H (1.6-8.9) K/mcL BMP 09/04/17 04:06 Sodium 138 Potassium 4.3 Chloride 107 Carbon Dioxide 18 L BUN 29 H D Creatinine 0.91 Glucose 277 H Calcium 9.0 Cardiac Enzymes 09/03/17 09/03/17 Range/Units 12:09 18:04 Troponin I 0.08 H* 0.07 H* (0-0.03) ng/mL - ABG Interpretation ABG results: ABG ABG pH 7.35 pH Units (7.32-7.45) 09/03/17 11:32 ABG pCO2 35 mmHg (35-45) 09/03/17 11:32 ABG pO2 110 mmHg (85-104) H 09/03/17 11:32 ABG O2 Saturation 98 % (95-98) 09/03/17 11:32 PT/INR, D-dimer PT 10.9 Seconds (9.4-12.1) 09/03/17 04:55 - Impressions Impressions Echocardiogram Limited Views 09/03/17 14:01 Impressions: LVEF 70%. Normal LV chamber size, wall thickness and function. Midl to moderate concentric left ventricular hypertrophy. Left Ventricular Wall Motion: Rest Echo Findings All wall segments showed normal motion. Findings: Study Quality * Technically adequate exam. ECG Findings * Normal sinus rhythm. Left Ventricle * LVEF 70%. * Normal LV chamber size and function. * Midl to moderate concentric left ventricular hypertrophy. Right Ventricle * Normal right ventricular structure and function. Left Atrium * Mildly dilated left atrium. Right Atrium * Normal right atrial size. Aorta * Normally sized aortic root. Pericardium * There is a trivial pericardial effusion present. IVC * Normal IVC dimensions and inspiratory collapse. Consult Discharge Plan - Plan Referrals: Ailyn Delatorre, [employer] [Primary Care Provider] - <Felix Loredo - Last Filed: 09/04/17 16:24> Date of Encounter: 09/04/17 - Constitutional Vitals: Temp Pulse Resp BP Pulse Ox 97.9 F 74 12 113/61 95 09/04/17 15:04 09/04/17 15:04 09/04/17 15:04 09/04/17 15:04 09/04/17 15:04 Internal Medicine: Result - Labs CBC & Chem 7: 09/04/17 04:06 09/04/17 04:06 Labs: Short CBC 09/04/17 Range/Units 04:06 WBC 26.5 H (4.3-11.1) K/mcL Hgb 11.5 (11.5-15.4) g/dL Hct 35.2 L (35.3-44.9) % Plt Count 217 (140-400) K/mcL Neutrophils # 24.8 H (1.6-8.9) K/mcL BMP 09/04/17 04:06 Sodium 138 Potassium 4.3 Chloride 107 Carbon Dioxide 18 L BUN 29 H D Creatinine 0.91 Glucose 277 H Calcium 9.0 Cardiac Enzymes 09/03/17 Range/Units 18:04 Troponin I 0.07 H* (0-0.03) ng/mL - ABG Interpretation ABG results: ABG ABG pH 7.35 pH Units (7.32-7.45) 09/03/17 11:32 ABG pCO2 35 mmHg (35-45) 09/03/17 11:32 ABG pO2 110 mmHg (85-104) H 09/03/17 11:32 ABG O2 Saturation 98 % (95-98) 09/03/17 11:32 PT/INR, D-dimer PT 10.9 Seconds (9.4-12.1) 09/03/17 04:55 - Attending Attestation I have seen and examined the patient independently. I have discussed with resident physician Dr. Guerra regarding the management plan. Agree with the documentation. Patient is still having subjective dyspnea. However, her lung imaging study, echo unremarkable. Lungs are clear no wheezing. No further chest pain. Vital signs stable except for tachycardia. Patient did report diarrhea. GI panel negative. Thyroid function test has been done, hyperthyroidism has been ruled out. Patient has anxiety, increased home medication Lexapro to 20 mg daily. Cardiology signed off and do not think patient has ACS, Lovenox dose change to prophylaxis dose. Continue steroid, antibiotic, and bronchodilator for COPD exacerbation, start to taper down steroids and de-escalate antibiotics.
[2017-09-04 10:52] LABS: Adenovirus F 40/41 PCR Not detected (Not detect); Astrovirus PCR Not detected (Not detect); C.difficile Toxin A/B by PCR Not detected (Not detect); Campylobacter by PCR Not detected (Not detect); Cryptosporidium by PCR Not detected (Not detect); Cyclospora cayetanensis PCR Not detected (Not detect); E. coli O157 by PCR Not detected (Not detect); Entamoeba histolytica PCR Not detected (Not detect); Enteroaggregative E.coli(EAEC) Not detected (Not detect); Enteropathogenic E.coli(EPEC) Not detected (Not detect); Enterotoxigenic E.coli (ETEC) Not detected (Not detect); Giardia lamblia PCR Not detected (Not detect); Norovirus GI/GII PCR Not detected (Not detect); Plesiomonas shigelloides PCR Not detected (Not detect); Rotavirus A PCR Not detected (Not detect); Salmonella PCR Not detected (Not detect); Sapovirus PCR Not detected (Not detect); Shig/EnteroinvasiveE coli EIEC Not detected (Not detect); Shigalike tox-prod E coli STEC Not detected (Not detect); Vibrio PCR Not detected (Not detect); Vibrio cholerae PCR Not detected (Not detect); Yersinia enterocolitica PCR Not detected (Not detect)
[2017-09-04 12:07] LABS: Thyroid Stimulating Hormone 0.116 mcIU/mL (0.350-4.840); Triiodothyronine (T3) Free 2.43 pg/mL (1.71-3.71); Triiodothyronine (T3) Total 0.92 ng/mL (0.58-1.59)
--- NOTE | 2017-09-04 13:27 | Cardiology Progress Note ---
Date of Encounter: 09/04/17 Time of Encounter: 13:30 Assessment and Plan (1) Acute exacerbation of chronic obstructive airways disease Current Visit: No Status: Acute Per Cardiology: Management per primary team. On NC O2, steroids, antibiotics. WBC in the 20's. (2) Community acquired pneumonia Current Visit: No Status: Acute Per Cardiology: Per primary service. Qualifiers: Laterality: unspecified laterality Qualified Code(s): J18.9 - Pneumonia, unspecified organism (3) Elevated troponin Current Visit: Yes Status: Acute Per Cardiology: Troponin negative x 3, then 0.05, 0.08, 0.07 in setting of COPD exacerbation-- tachypneic, tachycardic, WBC 21.9 (now even higher), lactic acid as high as 7.3. EKG without ischemic changes. Suspect demand ischemia, nondiagnostic for ACS. No cardiac Rehab warranted. Chest CTA ruled out PE or dissection. Limited echo shows EF 70%, NSWMA. Negative stress test 05/2015, but no recent ischemic evaluation. Discussed with patient and family, reviewed with Dr. Charles, Cardiology will s/o, re-consult PRN, f/u as outpatient scheduled. Will evaluate in outpatient setting once recovered from acute resp issues need for further ishemic eval (possible stress test). All questions answered. . Discussion w patient/family: The assessment and plan as outlined above was discussed with the patient and/or family members who expressed understanding and agreement. All questions were answered. Thank you for involving us in the care of your patient. Please call with any questions. Subjective Principal diagnosis: COPD Exac Interval history: Currently denies any chest pain. Reports very minimal improvement of her short of breath since admission. She denies any palpitations. Reports some chest discomfort with deep inspiration and coughing. Reports with movement or position changes elevated HRs. Objective Vital Signs, Last 4 Hours Temp Pulse Resp BP Pulse Ox 09/04/17 11:57 16 100 09/04/17 11:27 98.0 F 78 14 127/63 96 09/04/17 11:19 98.7 F 92 18 134/66 General: Conversant HEENT: Atraumatic, Normocephaly Cardiac: Reg Rate and Rhythm, Normal S1 and S2, No Murmur Lungs: Other (Diminished throughout) Neuro: Alert and responsive, No focal deficits noted Skin: No rashes noted on visualized skin Extremities: No Edema Results 09/04/17 04:06 09/04/17 04:06 Lab Results Laboratory Tests 09/02/17 09/02/17 09/02/17 12:53 12:53 18:01 WBC 13.4 H INR Troponin I 0.00 0.01 TSH 09/02/17 09/03/17 09/03/17 23:25 04:55 04:55 WBC INR 1.0 Troponin I 0.02 0.05 H* TSH 09/03/17 09/03/17 09/04/17 12:09 18:04 04:06 WBC 26.5 H INR Troponin I 0.08 H* 0.07 H* TSH 09/04/17 04:06 WBC INR Troponin I TSH 0.116 L ITS Impressions Chest X-Ray 09/02/17 12:50 IMPRESSION: Stable cardiomegaly without acute cardiopulmonary findings. Previously noted nodule is not well appreciated on today's study. D/ / 09/02/2017 14:05:55 Araseli Thompson MD / amber Interpreting Provider: Araseli Thompson MD Chest CTA 09/02/17 21:50 IMPRESSION: 1. No evidence of aortic dissection. 2. No evidence of pulmonary embolism. 3. Mild atelectasis within the lungs. No definite focal infiltrate is identified. 4. Stable nodule within the left lower lobe. 5. Fatty liver infiltration. D/ / Sen George MD / Sen George MD Interpreting Provider: Sen George MD Abdomen CTA 09/02/17 21:56 IMPRESSION: 1. No evidence of aortic dissection. 2. No evidence of pulmonary embolism. 3. Mild atelectasis within the lungs. No definite focal infiltrate is identified. 4. Stable nodule within the left lower lobe. 5. Fatty liver infiltration. D/ / Sen George MD / Sen George MD Interpreting Provider: Sen George MD Echocardiogram Limited Views 09/03/17 14:01 Impressions: LVEF 70%. Normal LV chamber size, wall thickness and function. Midl to moderate concentric left ventricular hypertrophy. Left Ventricular Wall Motion: Rest Echo Findings All wall segments showed normal motion. Findings: Study Quality * Technically adequate exam. ECG Findings * Normal sinus rhythm. Left Ventricle * LVEF 70%. * Normal LV chamber size and function. * Midl to moderate concentric left ventricular hypertrophy. Right Ventricle * Normal right ventricular structure and function. Left Atrium * Mildly dilated left atrium. Right Atrium * Normal right atrial size. Aorta * Normally sized aortic root. Pericardium * There is a trivial pericardial effusion present. IVC * Normal IVC dimensions and inspiratory collapse. Active Medications Acetaminophen (Tylenol) 650 mg PO Q6HR PRN PRN Reason: Pain Stop: 03/05/18 13:02 Last Admin: 09/03/17 14:32 Dose: 650 mg Al Hydrox/Mg Hydrox/Simethicone (Maalox) 15 ml PO Q6HR PRN PRN Reason: Dyspepsia Stop: 03/04/18 17:05 Aspirin (Aspirin) 81 mg PO DAILY [facility] Stop: 03/05/18 14:16 Last Admin: 09/04/17 09:06 Dose: 81 mg Atorvastatin Calcium (Lipitor) 20 mg PO DAILY [facility] Stop: 03/05/18 09:01 Last Admin: 09/04/17 09:06 Dose: 20 mg Budesonide/Formoterol Fumarate (Symbicort) 2 puff IH BIDR [facility] PRN Reason: Protocol Stop: 03/04/18 22:01 Last Admin: 09/04/17 07:59 Dose: 2 puff Chlorthalidone (Chlorthalidone) 25 mg PO DAILY [facility] Stop: 03/05/18 09:01 Last Admin: 09/04/17 09:06 Dose: 25 mg Clonidine HCl (Clonidine Hcl) 0.3 mg PO HS [facility] Stop: 03/04/18 21:01 Last Admin: 09/03/17 21:25 Dose: Not Given Clonidine HCl (Clonidine Hcl) 0.15 mg PO 0800,1200 [facility] Stop: 03/04/18 21:01 Last Admin: 09/04/17 11:38 Dose: 0.15 mg Dextrose/Water (Dextrose 50% (Syg)) 25 ml IVP AD PRN PRN Reason: Hypoglycemia Stop: 03/05/18 00:13 Diltiazem HCl (Cardizem) 60 mg PO QID [facility] Stop: 03/05/18 13:01 Last Admin: 09/04/17 11:39 Dose: 60 mg Doxazosin Mesylate (Cardura) 4 mg PO HS [facility] Stop: 03/04/18 21:01 Last Admin: 09/03/17 21:26 Dose: 4 mg Enoxaparin Sodium (Lovenox) 80 mg 1 mg/kg (80 mg) SQ Q12H [facility] PRN Reason: Protocol Stop: 03/05/18 13:46 Last Admin: 09/04/17 04:05 Dose: 80 mg Escitalopram Oxalate (Lexapro) 10 mg PO DAILY [facility] Stop: 03/05/18 09:01 Last Admin: 09/04/17 09:06 Dose: 10 mg Gabapentin (Neurontin) 300 mg PO HS [facility] Stop: 03/04/18 21:01 Last Admin: 09/03/17 21:25 Dose: 300 mg Glucagon (Glucagen) 1 mg IM ONCE PRN PRN Reason: Hypoglycemia Stop: 03/05/18 00:13 Glucose (Gluctose) 15 gm PO ONCE PRN PRN Reason: Hypoglycemia Stop: 03/05/18 00:13 Glucose (Gluctose) 30 gm PO ONCE PRN PRN Reason: Hypoglycemia Stop: 03/05/18 00:13 Hydralazine HCl (Hydralazine) 50 mg PO TID [facility] Stop: 03/04/18 21:01 Last Admin: 09/04/17 09:06 Dose: 50 mg Dextrose (Dextrose 5%) 1,000 mls @ 100 mls/hr IVC .Q10H PRN PRN Reason: HYPOGLYCEMIA Stop: 03/05/18 00:13 Piperacillin Sod/Tazobactam (Sod 3.375 gm/ Dextrose) 50 mls @ 12.5 mls/hr IVPB Q8H [facility] Stop: 03/05/18 19:01 Last Admin: 09/04/17 11:43 Dose: 12.5 mls/hr Doxycycline Hyclate 100 mg/ (Sodium Chloride) 100 mls @ 100 mls/hr IVPB Q12HR [facility] Stop: 03/06/18 18:01 Insulin Human Lispro (Humalog) 0 units SQ TIDAC [facility] PRN Reason: Protocol Stop: 03/05/18 00:16 Last Admin: 09/04/17 11:40 Dose: 14 units Insulin Human Lispro (Humalog) 0 units SQ HS [facility] PRN Reason: Protocol Stop: 03/05/18 23:46 Last Admin: 09/03/17 23:49 Dose: 5 units Lactobacillus Acidophilus/Rhamnosus (Culturelle) 2 each PO DAILY [facility] Stop: 03/06/18 09:16 Levalbuterol HCl (Xopenex) 1.25 mg IH [id number] [facility] Stop: 03/04/18 20:01 Last Admin: 09/04/17 11:55 Dose: 1.25 mg Lisinopril (Zestril) 40 mg PO BID [facility] Stop: 03/04/18 21:01 Last Admin: 09/04/17 09:06 Dose: 40 mg Methylprednisolone (Solu-Medrol) 60 mg IVP Q6HR [facility] Stop: 03/05/18 06:37 Last Admin: 09/04/17 09:05 Dose: 60 mg Montelukast Sodium (Singulair) 10 mg PO HS [facility] Stop: 03/04/18 21:01 Last Admin: 09/03/17 21:45 Dose: 10 mg Morphine Sulfate (Morphine Sulfate) 2 mg IVP Q4HR PRN PRN Reason: Severe Pain (7-10) Stop: 03/04/18 17:05 Naloxone HCl (Narcan) 0.4 mg IVP Q2MIN PRN PRN Reason: Opioid Reversal Stop: 03/04/18 17:05 Omeprazole (Prilosec) 20 mg PO BIDAC [facility] Stop: 03/04/18 21:01 Last Admin: 09/04/17 09:06 Dose: 20 mg Spironolactone (Aldactone) 100 mg PO DAILY [facility] Stop: 03/05/18 09:01 Last Admin: 09/04/17 09:06 Dose: 100 mg Sucralfate (Carafate) 1 gm PO BID [facility] Stop: 03/04/18 21:01 Last Admin: 09/04/17 09:06 Dose: 1 gm Tiotropium [place] (Spiriva) 18 mcg IH DAILY [facility] Stop: 03/05/18 09:01 Last Admin: 09/04/17 07:59 Dose: Not Given - Imaging and Cardiology Chest Xray: report reviewed Stress Test: report reviewed Echo: report reviewed - EKG Interpretation EKG results cardiology: other - VTE Documentation of Mechanical Device: Intermittent pneumatic compression device Consult Discharge Plan - Plan Referrals: Ailyn Delatorre, IDA [Primary Care Provider] -
[2017-09-04] MEDS ORDERED: *HR* Enoxaparin 40 MG/0.4 ML SYRINGE SQ ONE (14:28)
[2017-09-04] MEDS ORDERED: *HR* LORazepam 1 MG TABLET PO PRN (14:30)
[2017-09-04] MEDS: Lactobacillus 1 EACH CAP.SPRINK PO SCH (17:18)
[2017-09-04] MEDS ORDERED: *HR* Enoxaparin 80 MG/0.8 ML SYRINGE SQ SCH (18:00)
[2017-09-04] MEDS ORDERED: Doxycycline 100 MG in 0.9 % Sodium Chloride Mini Bag 100 ML IVPB SCH (18:00)
[2017-09-05] MEDS: Levalbuterol Neb 1.25 MG/3 ML IH SCH ×5 (03:25→20:45)
[2017-09-05 04:05] LABS: Basophils % 0.2 %; Hematocrit 34.7 % (35.3-44.9); Hemoglobin 11.4 g/dL (11.5-15.4); Immature Granulocytes % 2.6 % (0-4); Lymphocytes # 0.7 K/mcL (0.6-4.6); Mean Corpuscular HGB Conc 32.9 g/dL (31.6-35.5); Mean Corpuscular Hemoglobin 27.5 pg (28.0-33.3); Mean Corpuscular Volume 83.8 fL (83.0-100.0); Mean Platelet Volume 9.9 fL (9.4-12.4); Monocytes # 0.5 K/mcL (0.0-1.3); Monocytes % 1.9 %; Neutrophils # 21.8 K/mcL (1.6-8.9); Platelet Count 207 K/mcL (140-400); Red Blood Count 4.14 M/mcL (3.82-4.97); Red Cell Distribution Width 13.2 % (11.5-14.5); Segmented Neutrophils % 92.3 %
[2017-09-05 04:17] LABS: BUN/Creatinine Ratio 36 (6-26); Blood Urea Nitrogen 32 mg/dL (7-20); Calcium 9.2 mg/dL (8.6-10.8); Carbon Dioxide 23 mEq/L (19-29); Chloride 104 mEq/L (98-109); Glucose 292 mg/dL (70-99); Osmolality,Calculated 302 (280-300); Potassium 3.9 mEq/L (3.5-4.5); Sodium 137 mEq/L (136-145); eGFR For African Americans > 60 (> 60); eGFR For Non-African Americans > 60 (> 60)
[2017-09-05 04:21] LABS: Basophils # 0.1 K/mcL (0.0-0.2)
[2017-09-05 04:34] LABS: Platelet Estimate Normal (Normal); Toxic Granulation Present (Not Present)
[2017-09-05] MEDS ORDERED: Doxycycline 100 MG in 0.9 % Sodium Chloride 100 ML IVPB SCH (06:00)
[2017-09-05] MEDS: *HR* Enoxaparin 40 MG/0.4 ML SYRINGE SQ SCH (06:21)
[2017-09-05] MEDS: methylPREDNISolone 125 MG/2 ML VIAL IVP SCH ×2 (06:21→16:55)
[2017-09-05] MEDS ORDERED: Doxycycline 100 MG in 0.9 % Sodium Chloride Mini Bag 100 ML IVPB SCH (07:00)
[2017-09-05] MEDS: Budesonide/Formoterol 160/4.5 MDI IH SCH ×2 (07:42→20:45)
[2017-09-05] MEDS: Tiotropium 18 MCG inhalation IH SCH (07:43)
[2017-09-05] MEDS: cloNIDine HCl 0.1 MG TABLET PO SCH ×3 (08:15→22:18)
[2017-09-05] MEDS: Aspirin 81 MG TAB.CHEW PO SCH (08:15)
[2017-09-05] MEDS: hydrALAZINE 25 MG TABLET PO SCH ×3 (08:16→22:18)
[2017-09-05] MEDS: Sucralfate 1 GM TABLET PO SCH ×2 (08:16→22:18)
[2017-09-05] MEDS: Diltiazem CD (24hr) 240 MG CAPSULE PO SCH (08:16)
[2017-09-05] MEDS: Lactobacillus 1 EACH CAP.SPRINK PO SCH (08:16)
[2017-09-05] MEDS: Lisinopril 20 MG TABLET PO SCH ×2 (08:16→22:18)
[2017-09-05] MEDS: Insulin LISPRO 300 UNITS/3 ML VIAL SQ SCH ×4 (08:17→22:29)
--- NOTE | 2017-09-05 11:40 | Internal Med Progress Note ---
<Girma Guerra Eliel - Last Filed: 09/05/17 11:38> Date of Encounter: 09/05/17 Time of Encounter: 11:38 - Assessment and plan (1) Acute exacerbation of chronic obstructive airways disease Current Visit: No Status: Acute Assessment and plan: Worsening dyspnea for the past week. Denies sputum production O2 sat mid-high 90's on 2L O2 nasal canula. No longer tachycardic or tachypnic ABG: pH 7.35, pCO2 35, HCO3 20 CXR: Stable cardiomegaly without acute cardiopulmonary findings. No focal consolidation, pleural effusion, or pneumothorax CTA chest: No aortic dissection. No PE. Mild atelectasis within lungs, no definitive infiltrate. Stable left lower lobe nodule Lactic acid elevated: 3.8, 7.3, 6.6, 4.1. WBC 13.4 on admission. Procalcitonin pending. Continue doxycycline as she had a z-pack last week without resolution of her symptoms Continue prednisone and bronchodilators Recheck CXR as her breathing is not improving Attempt to increase activity and ambulate (2) Diarrhea Current Visit: Yes Status: Acute Assessment and plan: Reports having diarrhea last week that resolved Now reporting diarrhea the past 2 days Stool sample for GI panel - Negative. TSH normal. Add loperamide Qualifiers: Diarrhea type: unspecified type Qualified Code(s): R19.7 - Diarrhea, unspecified (3) Chest pain Current Visit: Yes Status: Resolved Assessment and plan: Acute onset sternal and left-sided chest pain - radiation to back and left arm Responded to nitroglycerin in ED, but her BP dropped to 86/56. Not reporting chest pain now. Troponins slowly elevatin.00, 0.01, 0.02, 0.05, 0.08, 0.07 - likely demand ischemia in setting of COPD and PNA No ischemic EKG changes. CTA shows no PE Previous Echo from 03/15/17: LVEF EF60%. LV diastolic dysfunction with concentric LV hypertrophy. No significant valvular dysfunction. No pulmonary HTN. Echo: LVEF 70%, mild-moderate concentric LV hypertrophy Previous Stress 06/22/15: Resting HTN worsening with exercise. No ischemia or prior infarct Reports previous LA "a couple years ago" without PCI Cardiology consulted - not diagnostic for ACS, signed off and will follow-up as outpatient Continue meds - Cardizem, Chlorthalidone, Clonidine, Lisinopril, Aldactone, Hydralazine, Lipitor Qualifiers: Chest pain type: unspecified Qualified Code(s): R07.9 - Chest pain, unspecified (4) Community acquired pneumonia Current Visit: No Status: Acute Assessment and plan: CXR and CTA shows no focal infiltrates, but still concern for early pneumonia WBC and LA elevated. Procalcitonin pending. Recheck CXR Continue antibiotics, bronchodilators, and O2 Qualifiers: Laterality: unspecified laterality Qualified Code(s): J18.9 - Pneumonia, unspecified organism (5) HTN (hypertension) Current Visit: Yes Status: Acute Assessment and plan: BP will elevate prior to morning meds. Normal during the rest of the day. Continue home meds Qualifiers: Hypertension type: essential hypertension Qualified Code(s): I10 - Essential (primary) hypertension (6) HLD (hyperlipidemia) Current Visit: No Status: Chronic Assessment and plan: Continue statin Qualifiers: Hyperlipidemia type: unspecified Qualified Code(s): E78.5 - Hyperlipidemia , unspecified (7) Diabetes Current Visit: No Status: Chronic Assessment and plan: Hold home meds. SSI Qualifiers: Diabetes mellitus type: type 2 Diabetes mellitus complication status: without complication Diabetes mellitus director of fundraising insulin use: with director of fundraising use Qualified Code(s): E11.9 - Type 2 diabetes mellitus without complications ; Z79.4 - group home (current) use of insulin; Z79.4 - software test engineer (current) use of insulin; Z79.4 - group home (current) use of insulin; Z79.4 - software test engineer ( current) use of insulin (8) DVT prophylaxis Current Visit: No Status: Acute Assessment and plan: Lovenox - Subjective Interval history: Pt seen and examined. Reports she continues to have dyspnea at rest and on exertion. Respirations are labored during our conversation, but O2 saturation remains in mid-high 90's. Her back/left-sided pain is improved and responds well to tylenol. Her watery diarrhea continues. Denies syncope, light-headedness , N/V, constipation, dysuria, or leg pain/edema. - Constitutional Vitals: Temp Pulse Resp BP Pulse Ox 98.6 F 84 14 130/64 97 09/05/17 11:32 09/05/17 11:32 09/05/17 11:32 09/05/17 11:32 09/05/17 11:32 General appearance: Present: mild distress, A&O X 3, pleasant, answers questions appropriately - Head Head exam: Present: atraumatic, normocephalic - Eye Eye exam: Present: conjuntiva pink, sclera anicteric - Neck Neck exam general surgery: Present: supple, trachea midline. Absent: lymphadenopathy - Respiratory Respiratory exam: Present: decreased breath sounds. Absent: accessory muscle use, rales, rhonchi, wheezes - Cardiovascular Cardiovascular exam: Present: RRR, +S1, +S2, systolic murmur. Absent: diastolic murmur - GI/Abdominal GI/Abdominal exam: Present: normal bowel sounds, soft, no peritoneal signs. Absent: distended, tenderness - Extremities Exam Extremities exam: Present: warm, radial pulses palpable and symmetrical. Absent : calf tenderness, cyanotic, pedal edema - Neurological Exam Neurological exam: Present: CN II-XII intact, oriented X3, no focal deficits. Absent: facial droop, speech deficit - Skin Skin exam: Present: dry, intact Internal Medicine: Result - Labs CBC & Chem 7: 09/05/17 03:47 09/05/17 03:47 Labs: Short CBC 09/05/17 Range/Units 03:47 WBC 23.6 H (4.3-11.1) K/mcL Hgb 11.4 L (11.5-15.4) g/dL Hct 34.7 L (35.3-44.9) % Plt Count 207 (140-400) K/mcL Neutrophils # 21.8 H (1.6-8.9) K/mcL BMP 09/05/17 03:47 Sodium 137 Potassium 3.9 Chloride 104 Carbon Dioxide 23 BUN 32 H Creatinine 0.89 Glucose 292 H Calcium 9.2 - ABG Interpretation ABG results: ABG ABG pH 7.35 pH Units (7.32-7.45) 09/03/17 11:32 ABG pCO2 35 mmHg (35-45) 09/03/17 11:32 ABG pO2 110 mmHg (85-104) H 09/03/17 11:32 ABG O2 Saturation 98 % (95-98) 09/03/17 11:32 PT/INR, D-dimer PT 10.9 Seconds (9.4-12.1) 09/03/17 04:55 - VTE Documentation of Mechanical Device: Intermittent pneumatic compression device Consult Discharge Plan - Plan Referrals: Ailyn Delatorre, CLOTH DES[employer]ING RANGE OPERATOR CHIEF [Primary Care Provider] - <[email or web address] annrosana - Last Filed: 09/05/17 15:25> Date of Encounter: 09/05/17 - Constitutional Vitals: Temp Pulse Resp BP Pulse Ox 98.6 F 84 14 130/64 97 09/05/17 11:32 09/05/17 11:32 09/05/17 11:32 09/05/17 11:32 09/05/17 11:32 Internal Medicine: Result - Labs CBC & Chem 7: 09/05/17 03:47 09/05/17 03:47 Labs: Short CBC 09/05/17 Range/Units 03:47 WBC 23.6 H (4.3-11.1) K/mcL Hgb 11.4 L (11.5-15.4) g/dL Hct 34.7 L (35.3-44.9) % Plt Count 207 (140-400) K/mcL Neutrophils # 21.8 H (1.6-8.9) K/mcL BMP 09/05/17 03:47 Sodium 137 Potassium 3.9 Chloride 104 Carbon Dioxide 23 BUN 32 H Creatinine 0.89 Glucose 292 H Calcium 9.2 - ABG Interpretation ABG results: ABG ABG pH 7.35 pH Units (7.32-7.45) 09/03/17 11:32 ABG pCO2 35 mmHg (35-45) 09/03/17 11:32 ABG pO2 110 mmHg (85-104) H 09/03/17 11:32 ABG O2 Saturation 98 % (95-98) 09/03/17 11:32 PT/INR, D-dimer PT 10.9 Seconds (9.4-12.1) 09/03/17 04:55 - Attending Attestation I have seen and examined the patient independently. I have discussed with resident physician Dr. Guerra regarding the management plan. Agree with the documentation. Patient denies chest pain. Still mild shortness of breath but improved. Vitals are stable. Cardiology signed off already. Review patient's old chart, she has very difficult to controlled HTN. Secondary hypertension workup has been done as outpatient, including pheochromocytoma, hyperaldosteronism, and renal artery stenosis, all results unremarkable. We will continue current treatment as patient symptoms has improved. Taper down steroids.
[2017-09-05] MEDS: Acetaminophen 325 MG TABLET PO PRN ×2 (16:55→22:17)
--- NOTE | 2017-09-05 17:29 | Electrocardiograph Report ---
[place] [id number] Test Date: 2017-09-03 Pat Name: Praveena Banda Department: 111 Room: [id number] Gender: F Test Tube Maker: : [id number] Requested By: [place] Order Number: [id number] Reading MD: Ramos Ritchie MD Measurements Intervals [place] Rate: 125 P: 27 OK: 148 QRS: -22 QRSD: 79 T: 80 QT: 309 QTc: 383 Interpretive Statements SINUS TACHYCARDIA LEFT VENTRICULAR HYPERTROPHY AND ST-T CHANGE Electronically Signed On 09-05-2017 17:28:24 EST by Ramos Ritchie MD
[2017-09-05] MEDS: Doxycycline 100 MG in 0.9 % Sodium Chloride Mini Bag 100 ML IVPB SCH (18:33)
[2017-09-05] MEDS: Gabapentin 300 MG CAPSULE PO SCH (22:18)
[2017-09-06] MEDS: Levalbuterol Neb 1.25 MG/3 ML IH SCH ×7 (00:51→23:54)
[2017-09-06 04:35] LABS: Basophils # 0.1 K/mcL (0.0-0.2); Basophils % 0.3 %; Hematocrit 34.6 % (35.3-44.9); Hemoglobin 11.3 g/dL (11.5-15.4); Immature Granulocytes % 2.8 % (0-4); Lymphocytes # 0.8 K/mcL (0.6-4.6); Lymphocytes % 4.2 %; Mean Corpuscular HGB Conc 32.7 g/dL (31.6-35.5); Mean Corpuscular Hemoglobin 27.1 pg (28.0-33.3); Mean Platelet Volume 9.6 fL (9.4-12.4); Monocytes # 0.6 K/mcL (0.0-1.3); Neutrophils # 16.5 K/mcL (1.6-8.9); Platelet Count 198 K/mcL (140-400); Red Blood Count 4.17 M/mcL (3.82-4.97); Red Cell Distribution Width 12.6 % (11.5-14.5); Segmented Neutrophils % 89.7 %
[2017-09-06 04:45] LABS: BUN/Creatinine Ratio 45 (6-26); Blood Urea Nitrogen 38 mg/dL (7-20); Calcium 8.7 mg/dL (8.6-10.8); Carbon Dioxide 23 mEq/L (19-29); Chloride 102 mEq/L (98-109); Glucose 265 mg/dL (70-99); Osmolality,Calculated 300 (280-300); Potassium 3.8 mEq/L (3.5-4.5); Sodium 136 mEq/L (136-145); eGFR For African Americans > 60 (> 60); eGFR For Non-African Americans > 60 (> 60)
[2017-09-06] MEDS: methylPREDNISolone 125 MG/2 ML VIAL IVP SCH (06:15)
[2017-09-06] MEDS: *HR* Enoxaparin 40 MG/0.4 ML SYRINGE SQ SCH (06:15)
[2017-09-06] MEDS: Doxycycline 100 MG in 0.9 % Sodium Chloride Mini Bag 100 ML IVPB SCH (06:17)
[2017-09-06] MEDS: Budesonide/Formoterol 160/4.5 MDI IH SCH ×2 (07:52→20:12)
[2017-09-06] MEDS: Tiotropium 18 MCG inhalation IH SCH (07:53)
--- NOTE | 2017-09-06 09:23 | Pulmonology Consult Note ---
Date of Encounter: 09/06/17 Time of Encounter: 09:23 Assessment and Plan (1) Acute exacerbation of chronic obstructive airways disease Current Visit: Yes Status: Acute This is a 51-year-old woman who presents with an acute exacerbation of chronic strict of lung disease. It is unclear to me if her entire picture is classically defined as COPD although she does have radiographic and clinical symptoms of chronic bronchitis but I suspect that her phenotype is more asthma in nature given the lack of obstruction on last PFTs that were done. I do not see any clear evidence radiographically of pneumonia she may have had a viral process that triggered this acute presentation. Her dyspnea is multifactorial including obesity deconditioning and her obstructive lung disease I's suspect there is also a component of underlying diastolic dysfunction especially with exertion that is also contributing to her symptomatology. Lastly she has a PET negative lung nodule that is being followed radiographically Recs: -Agree with oral prednisone to can complete two-week taper. -From respiratory standpoint no ongoing indication for Antibiotics. -Continue bronchodilators she can take nebulized breathing treatments at home on an as-needed basis otherwise I would schedule Symbicort 2 puffs twice daily and tiotropium but it is my opinion that she would benefit more from the respimat forumalation given body habitus and underlying disease. -Please check IgE level -Agree with incentive spirometry out of bed to chair ambulation -She will need a walking pulse oximetry study prior to discharge currently she is not requiring any supplemental oxygen and that is her baseline -She would be excellent candidate for pulmonary rehabilitation at discharge -Weight loss encouraged -Recommend optimal blood pressure control which has been difficult at baseline but as tolerated a net negative volume status would be helpful during this admission because of underlying diastolic dysfunction. Clearly this will require ongoing outpatient modifications by equipment technician for possible vacuum caster in addition to PCP -Continued Radiographic surveillance of left lung nodule <1cm as outpatient ( She should f/u with Dr Burton). (2) Diastolic dysfunction Current Visit: Yes Status: Acute (3) Obesity Current Visit: Yes Status: Acute Qualifiers: Obesity type: due to excess calories Obesity classification: unspecified obesity classification Serious obesity comorbidity presence: unspecified whether serious comorbidity present Qualified Code(s): E66.09 - Other obesity due to excess calories (4) Pulmonary nodule, left Current Visit: No Status: Acute History of Present Illness Consult date: 11/13/17 Requesting physician: Girma Guerra Reason for consult: dyspnea Chief complaint: Shortness of breath History of present illness: This is a 51-year-old woman with a past medical history of COPD and difficult to control HTN along with a remote history of tobacco abuse now in remission who was admitted for acute shortness of breath chest pain and nausea. Initial presentation was concerning for acute coronary syndrome however she was evaluated by cardiology and this was deemed not to be the case. She has since been treated for possible pneumonia along with COPD exacerbation. Despite these interventions patient remains dyspneic and pulmonary was consulted for further evaluation. On examination today she says that her breathing has improved slightly since the time of her admission and chest pain has and relieved. She does still get dyspneic with any sort of exertion. She in general leads a sedentary lifestyle denies any occupational exposures currently in the past she worked for [email or web address] in [employer]. She quit smoking in the early s smoked up to 3 packs a day until then. She keeps dogs at home but says that they do not affect her breathing. She is prescribed Symbicort and Spiriva daily along with nebulized treatments and a short acting beta agonist which she uses frequently. She sees a chemical research technician for a patent negative left lower lobe lung nodule. On admission she was also blending of diarrhea which appears to be improving Past Med Surg Social Fam HX - Past Medical History Medical history: asthma, COPD, diabetes, GERD, hyperlipidemia, hypertension, TIA Psychiatric history: no psych history - Past Surgical History Surgical History: appendectomy - Social History Smoking Status: Former smoker Smokeless Tobacco Status: No Alcohol use: none Drug use: none - Family History Mother Family Member Ethnicity: Non- Living Status: Age at : 60 Cause of : [place] Hx Family Cardiac Disorders: Yes Hx Family Respiratory Disorders: No Hx Family Cancer: No Hx Family GI Disorders: No Hx Family Endocrine Disorder: Yes (DM) Hx Family Neuromuscular Disorders: No Hx Family Neurologic Disorders: No Hx Family HEENT Disorders: No Hx Family Autoimmune Disorders: No Medications and Allergies Albuterol Sulfate [Proair Respiclick] 2 puff IH Q4H PRN 01/31/16 [History] Atorvastatin Calcium [Lipitor] 20 mg PO DAILY 01/31/16 [History] Chlorthalidone 25 mg PO DAILY 01/31/16 [History] Gabapentin [Neurontin] 300 mg PO HS 01/31/16 [History] Lisinopril [Zestril] 40 mg PO BID 01/31/16 [History] SitaGLIPtin [Januvia] 100 mg PO DAILY 01/31/16 [History] Spironolactone [Aldactone] 100 mg PO DAILY 01/31/16 [History] amLODIPine [Norvasc] 10 mg PO DAILY 01/31/16 [History] metFORMIN [Glucophage] 1,000 mg PO BIDWM 01/31/16 [History] Budesonide/Formoterol 160/4.5 [Symbicort 160/4.5] 2 puff IH BIDR 04/07/16 [ History] Sucralfate [Carafate] 1 gm PO BID 04/07/16 [History] Doxazosin [Cardura] 4 mg PO HS 01/19/17 [History] cloNIDine HCl [Clonidine HCl] 0.15 mg PO 0800,1200 01/19/17 [History] cloNIDine HCl [Clonidine HCl] 0.3 mg PO HS 01/19/17 [History] PredniSONE [Deltasone] 20 mg PO DAILY #10 tablet 08/24/17 [Rx] Escitalopram [Lexapro] 10 mg PO DAILY 09/02/17 [History] Hydralazine HCl 50 mg PO TID 09/02/17 [History] Minoxidil 2.5 mg PO BID 09/02/17 [History] Montelukast [Singulair] 10 mg PO HS 09/02/17 [History] Pantoprazole Sodium [Protonix] 40 mg PO BID 09/02/17 [History] Tiotropium [Spiriva] 1 puff IH DAILY 09/02/17 [History] 3 Allergy/AdvReac Type Severity Reaction Status Date / Time Beta-Blockers Allergy Difficulty Verified 08/24/17 08:52 (Beta-Adrenergic Bloc Breathing All Systems: A 10-system review of systems was performed and is negative for pertinent findings except as documented above in the HPI. Physical Examination Vital Signs: Vital Signs, Last 4 Hours Temp Pulse Resp BP Pulse Ox 09/06/17 07:53 20 98 09/06/17 06:45 98.1 F 70 20 120/59 97 09/06/17 05:28 99 F 76 20 120/69 98 General appearance: no acute distress Eyes: nonicteric Auscultation: right: diminished breath sounds (Right base ), bilateral: rhonchi (scattered Rhonchi ) Cardiovascular: regular rate and rhythm Gastrointestinal: normoactive bowel sounds, soft, non-tender Extremities: no edema Musculoskeletal: no deformities normal mental status, non-focal exam mood appropriate Results - Laboratory Findings CBC and BMP: 09/06/17 04:26 09/06/17 04:26 ABG ABG pH 7.35 pH Units (7.32-7.45) 09/03/17 11:32 ABG pCO2 35 mmHg (35-45) 09/03/17 11:32 ABG pO2 110 mmHg (85-104) H 09/03/17 11:32 ABG O2 Saturation 98 % (95-98) 09/03/17 11:32 PT/INR, D-dimer PT 10.9 Seconds (9.4-12.1) 09/03/17 04:55 Abnormal lab findings: Abnormal lab results WBC 18.4 K/mcL (4.3-11.1) H 09/06/17 04:26 Hgb 11.3 g/dL (11.5-15.4) L 09/06/17 04:26 Hct 34.6 % (35.3-44.9) L 09/06/17 04:26 MCH 27.1 pg (28.0-33.3) L 09/06/17 04:26 Neutrophils # 16.5 K/mcL (1.6-8.9) H 09/06/17 04:26 Toxic Granulation Present (Not Present) A 09/05/17 03:47 APTT 25.6 Seconds (26.0-36.0) L 09/03/17 04:55 ABG pO2 110 mmHg (85-104) H 09/03/17 11:32 ABG HCO3 20 mEq/L (21-27) L 09/03/17 11:32 ABG Base Excess -5 mEq/L (-2 to 3) L 09/03/17 11:32 BUN 38 mg/dL (7-20) H 09/06/17 04:26 BUN/Creatinine Ratio 45 (6-26) H 09/06/17 04:26 Glucose 265 mg/dL (70-99) H 09/06/17 04:26 POC Glucose 263 (58-89) H 09/06/17 04:48 Hemoglobin A1c 8.0 % (-5.6) H 09/03/17 04:55 Troponin I 0.07 ng/mL (0-0.03) H* 09/03/17 18:04 B-Natriuretic Peptide 196 pg/mL (0-100) H 09/03/17 04:55 Albumin 3.0 g/dL (3.5-5.0) L 09/03/17 04:55 Albumin/Globulin Ratio 0.9 (1.1-2.2) L 09/03/17 04:55 LDL Cholesterol, Calc 125 mg/dL (0-99) H 09/03/17 04:55 TSH 0.116 mcIU/mL (0.350-4.840) L 09/04/17 04:06 Ur Specific [place] > 1.030 (1.010-1.025) H 09/02/17 23:40 Urine Glucose (UA) >=1000 mg/dL (Normal) H 09/02/17 23:40 Urine Blood Trace (Negative) H 09/02/17 23:40 Ur Squamous Epith Cells Moderate per lpf (None-Few) H 09/02/17 23:40 - Microbiology Findings Microbiology Findings: Microbiology, Last 48 Hours 09/02/17 18:01 Blood Culture - Preliminary Peripheral Venipuncture No growth. 09/02/17 17:58 Blood Culture - Preliminary Peripheral Venipuncture No growth. - Diagnostic Findings Chest x-ray: report reviewed, image reviewed CT scan - chest: report reviewed, image reviewed - Clinical Findings Intake & Output: Intake & Output 09/05/17 09/06/17 09/06/17 23:59 07:59 15:59 Intake Total 700 / 700 280 / 280 360 / 360 Balance 700 / 700 280 / 280 360 / 360 Weight 78.7 kg Consult Discharge Plan - Plan Referrals: Ailyn Delatorre, [employer] [Primary Care Provider] -
[2017-09-06] MEDS: Sucralfate 1 GM TABLET PO SCH ×2 (09:28→21:02)
[2017-09-06] MEDS: Aspirin 81 MG TAB.CHEW PO SCH (09:28)
[2017-09-06] MEDS: cloNIDine HCl 0.1 MG TABLET PO SCH ×3 (09:28→21:02)
[2017-09-06] MEDS: Lisinopril 20 MG TABLET PO SCH ×2 (09:28→21:02)
[2017-09-06] MEDS: Insulin LISPRO 300 UNITS/3 ML VIAL SQ SCH ×4 (09:29→21:01)
[2017-09-06] MEDS: hydrALAZINE 25 MG TABLET PO SCH ×3 (09:29→21:02)
[2017-09-06] MEDS: Lactobacillus 1 EACH CAP.SPRINK PO SCH (09:29)
[2017-09-06] MEDS: Diltiazem CD (24hr) 240 MG CAPSULE PO SCH (09:29)
--- NOTE | 2017-09-06 10:54 | Internal Med Progress Note ---
<Girma Guerra Eliel - Last Filed: 09/06/17 11:52> Date of Encounter: 09/06/17 Time of Encounter: 10:52 - Assessment and plan (1) Acute exacerbation of chronic obstructive airways disease Current Visit: Yes Status: Acute Assessment and plan: Worsening dyspnea for the past week prior to admission. Denies sputum production O2 sat mid-high 90's on 2L O2 nasal canula. No longer tachycardic or tachypnic ABG: pH 7.35, pCO2 35, HCO3 20 CXR: Stable cardiomegaly without acute cardiopulmonary findings. No focal consolidation, pleural effusion, or pneumothorax CTA chest: No aortic dissection. No PE. Mild atelectasis within lungs, no definitive infiltrate. Stable left lower lobe nodule Lactic acid elevated: 3.8, 7.3, 6.6, 4.1. Now normal, 1.9. WBC 13.4 on admission. Procalcitonin pending. Continue doxycycline as she had a z-pack last week without resolution of her symptoms Continue prednisone and bronchodilators Repeat CXR: Right basilar airspace disease, atelectasis and/or pneumonia. Attempt to increase activity and ambulation Consult Pulmonology for further recommendations (2) Community acquired pneumonia Current Visit: No Status: Acute Assessment and plan: CXR and CTA shows no focal infiltrates, but still concern for early pneumonia WBC and LA elevated. LA now normal. Procalcitonin pending. Repeat CXR: Right basilar airspace disease, atelectasis and/or pneumonia. Continue antibiotics, bronchodilators, and O2 Qualifiers: Laterality: unspecified laterality Qualified Code(s): J18.9 - Pneumonia, unspecified organism (3) Chest pain Current Visit: Yes Status: Resolved Assessment and plan: Acute onset sternal and left-sided chest pain - radiation to back and left arm Responded to nitroglycerin in ED, but her BP dropped to 86/56. Not reporting chest pain now. Troponins slowly elevated: 0.00, 0.01, 0.02, 0.05, 0.08, 0.07 - likely demand ischemia in setting of COPD and PNA No ischemic EKG changes. CTA shows no PE Previous Echo from 03/15/17: LVEF EF60%. LV diastolic dysfunction with concentric LV hypertrophy. No significant valvular dysfunction. No pulmonary HTN. Echo: LVEF 70%, mild-moderate concentric LV hypertrophy Previous Stress 06/22/15: Resting HTN worsening with exercise. No ischemia or prior infarct Reports previous DE "a couple years ago" without PCI Cardiology consulted - not diagnostic for ACS, signed off and will follow-up as outpatient Continue meds - Cardizem, Chlorthalidone, Clonidine, Lisinopril, Aldactone, Hydralazine, Lipitor Qualifiers: Chest pain type: unspecified Qualified Code(s): R07.9 - Chest pain, unspecified (4) Diarrhea Current Visit: Yes Status: Resolved Assessment and plan: Reports having diarrhea last week that resolved Now reporting diarrhea the past 2 days Stool sample for GI panel - Negative. TSH normal. Add loperamide PRN Qualifiers: Diarrhea type: unspecified type Qualified Code(s): R19.7 - Diarrhea, unspecified (5) HTN (hypertension) Current Visit: Yes Status: Acute Assessment and plan: BP will elevate prior to morning meds. Normal during the rest of the day. Continue home meds Work-up for secondary causes of HTN has been conducted previously as an out- patient and was negative Qualifiers: Hypertension type: essential hypertension Qualified Code(s): I10 - Essential (primary) hypertension (6) HLD (hyperlipidemia) Current Visit: No Status: Chronic Assessment and plan: Continue statin Qualifiers: Hyperlipidemia type: unspecified Qualified Code(s): E78.5 - Hyperlipidemia , unspecified (7) Diabetes Current Visit: No Status: Chronic Assessment and plan: Hold home meds. 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 Reports she continues to have dyspnea at rest and on exertion. Respirations are labored during our conversation, but O2 saturation remains in mid-high 90's. Her back/left-sided pain is improved and responds well to tylenol. Last night she had some right-sided chest wall pain that responded to tylenol. Her diarrhea has stopped. Denies syncope, light-headedness , N/V, constipation, dysuria, or leg pain/edema. - Constitutional Vitals: Temp Pulse Resp BP Pulse Ox 98.1 F 70 20 120/59 98 09/06/17 06:45 09/06/17 06:45 09/06/17 07:53 09/06/17 06:45 09/06/17 07:53 General appearance: Present: mild distress, A&O X 3, pleasant, answers questions appropriately - Head Head exam: Present: atraumatic, normocephalic - Eye Eye exam: Present: conjuntiva pink, sclera anicteric - Neck Neck exam general surgery: Present: supple, trachea midline. Absent: lymphadenopathy - Respiratory Respiratory exam: Present: decreased breath sounds. Absent: accessory muscle use, rales, rhonchi, wheezes - Cardiovascular Cardiovascular exam: Present: RRR, +S1, +S2, systolic murmur. Absent: diastolic murmur - GI/Abdominal GI/Abdominal exam: Present: normal bowel sounds, soft, no peritoneal signs. Absent: distended, tenderness - Extremities Exam Extremities exam: Present: warm, radial pulses palpable and symmetrical. Absent : calf tenderness, cyanotic, pedal edema - Neurological Exam Neurological exam: Present: CN II-XII intact, oriented X3, no focal deficits. Absent: facial droop, speech deficit - Skin Skin exam: Present: dry, intact Internal Medicine: Result - Labs CBC & Chem 7: 09/06/17 04:26 09/06/17 04:26 Labs: Short CBC 09/06/17 Range/Units 04:26 WBC 18.4 H (4.3-11.1) K/mcL Hgb 11.3 L (11.5-15.4) g/dL Hct 34.6 L (35.3-44.9) % Plt Count 198 (140-400) K/mcL Neutrophils # 16.5 H (1.6-8.9) K/mcL BMP 09/06/17 04:26 Sodium 136 Potassium 3.8 Chloride 102 Carbon Dioxide 23 BUN 38 H Creatinine 0.85 Glucose 265 H Calcium 8.7 - ABG Interpretation ABG results: ABG ABG pH 7.35 pH Units (7.32-7.45) 09/03/17 11:32 ABG pCO2 35 mmHg (35-45) 09/03/17 11:32 ABG pO2 110 mmHg (85-104) H 09/03/17 11:32 ABG O2 Saturation 98 % (95-98) 09/03/17 11:32 PT/INR, D-dimer PT 10.9 Seconds (9.4-12.1) 09/03/17 04:55 - Impressions Impressions Chest X-Ray 09/05/17 10:17 IMPRESSION: Right basilar airspace disease, atelectasis and/or pneumonia. D/ / Juliann Mancia Cha, MD / Juliann Mancia Cha, MD Interpreting Provider: Juliann Mancia Cha, MD - VTE Documentation of Mechanical Device: Intermittent pneumatic compression device Consult Discharge Plan - Plan Referrals: Ailyn Delatorre [employer] [Primary Care Provider] - <Felix Loredo - Last Filed: 09/06/17 17:41> Date of Encounter: 09/06/17 - Constitutional Vitals: Temp Pulse Resp BP Pulse Ox 98.2 F 70 18 127/61 98 09/06/17 15:00 09/06/17 15:00 09/06/17 15:49 09/06/17 15:00 09/06/17 15:49 Internal Medicine: Result - Labs CBC & Chem 7: 09/06/17 04:26 09/06/17 04:26 Labs: Short CBC 09/06/17 Range/Units 04:26 WBC 18.4 H (4.3-11.1) K/mcL Hgb 11.3 L (11.5-15.4) g/dL Hct 34.6 L (35.3-44.9) % Plt Count 198 (140-400) K/mcL Neutrophils # 16.5 H (1.6-8.9) K/mcL BMP 09/06/17 04:26 Sodium 136 Potassium 3.8 Chloride 102 Carbon Dioxide 23 BUN 38 H Creatinine 0.85 Glucose 265 H Calcium 8.7 - ABG Interpretation ABG results: ABG ABG pH 7.35 pH Units (7.32-7.45) 09/03/17 11:32 ABG pCO2 35 mmHg (35-45) 09/03/17 11:32 ABG pO2 110 mmHg (85-104) H 09/03/17 11:32 ABG O2 Saturation 98 % (95-98) 09/03/17 11:32 PT/INR, D-dimer PT 10.9 Seconds (9.4-12.1) 09/03/17 04:55 - Attending Attestation I have seen and examined pt independently. I have discussed with resident physician Dr Guerra regarding the management plan. Agree with the documentation. Pt still c/o SOB. Lungs are clear on auscultation. Lactate get down. Pulmonology consult appreciated, will follow recommendation.
[2017-09-06] MEDS: predniSONE 20 MG TABLET PO SCH (12:04)
[2017-09-06] MEDS: Gabapentin 300 MG CAPSULE PO SCH (21:02)
[2017-09-07] MEDS: Levalbuterol Neb 1.25 MG/3 ML IH SCH ×3 (04:02→11:52)
[2017-09-07] MEDS: *HR* Enoxaparin 40 MG/0.4 ML SYRINGE SQ SCH (05:22)
[2017-09-07 05:24] LABS: Hemoglobin 11.3 g/dL (11.5-15.4); Mean Corpuscular HGB Conc 33.2 g/dL (31.6-35.5); Mean Corpuscular Hemoglobin 27.3 pg (28.0-33.3); Mean Corpuscular Volume 82.1 fL (83.0-100.0); Platelet Count 191 K/mcL (140-400); Red Blood Count 4.14 M/mcL (3.82-4.97); Red Cell Distribution Width 12.2 % (11.5-14.5)
[2017-09-07 05:40] LABS: BUN/Creatinine Ratio 39 (6-26); Blood Urea Nitrogen 33 mg/dL (7-20); Calcium 8.9 mg/dL (8.6-10.8); Carbon Dioxide 26 mEq/L (19-29); Chloride 101 mEq/L (98-109); Glucose 278 mg/dL (70-99); Osmolality,Calculated 297 (280-300); Potassium 3.8 mEq/L (3.5-4.5); Sodium 135 mEq/L (136-145); eGFR For African Americans > 60 (> 60); eGFR For Non-African Americans > 60 (> 60)
[2017-09-07] MEDS: Budesonide/Formoterol 160/4.5 MDI IH SCH (07:38)
[2017-09-07] MEDS: Tiotropium 18 MCG inhalation IH SCH (07:38)
[2017-09-07] MEDS: Lisinopril 20 MG TABLET PO SCH (08:14)
[2017-09-07] MEDS: Sucralfate 1 GM TABLET PO SCH (08:15)
[2017-09-07] MEDS: Aspirin 81 MG TAB.CHEW PO SCH (08:15)
[2017-09-07] MEDS: Lactobacillus 1 EACH CAP.SPRINK PO SCH (08:15)
[2017-09-07] MEDS: predniSONE 20 MG TABLET PO SCH (08:15)
[2017-09-07] MEDS: Diltiazem CD (24hr) 240 MG CAPSULE PO SCH (08:15)
[2017-09-07] MEDS: hydrALAZINE 25 MG TABLET PO SCH (08:16)
[2017-09-07] MEDS: cloNIDine HCl 0.1 MG TABLET PO SCH ×2 (08:18→12:37)
[2017-09-07] MEDS: Insulin LISPRO 300 UNITS/3 ML VIAL SQ SCH ×2 (08:20→12:38)
--- NOTE | 2017-09-07 08:49 | Discharge Summary ---
<Girma Guerra R - Last Filed: 09/07/17 08:35> Date of Encounter: 09/07/17 Time of Encounter: 08:35 - Discharge Diagnosis (1) Acute exacerbation of chronic obstructive airways disease Priority: Primary Status: Acute (2) Community acquired pneumonia Priority: Secondary Status: Acute Qualifiers: Laterality: unspecified laterality Qualified Code(s): J18.9 - Pneumonia, unspecified organism (3) Chest pain Priority: Secondary Status: Resolved Qualifiers: Chest pain type: unspecified Qualified Code(s): R07.9 - Chest pain, unspecified (4) Diarrhea Priority: Secondary Status: Resolved Qualifiers: Diarrhea type: unspecified type Qualified Code(s): R19.7 - Diarrhea, unspecified (5) HTN (hypertension) Priority: Secondary Status: Acute Qualifiers: Hypertension type: essential hypertension Qualified Code(s): I10 - Essential (primary) hypertension (6) HLD (hyperlipidemia) Priority: Secondary Status: Chronic Qualifiers: Hyperlipidemia type: unspecified Qualified Code(s): E78.5 - Hyperlipidemia , unspecified (7) Diabetes Priority: Secondary Status: Chronic Qualifiers: Diabetes mellitus type: type 2 Diabetes mellitus complication status: without complication 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 insulin use: with prison use Qualified Code(s): E11.9 - Type 2 diabetes mellitus without complications ; Z79.4 - prison (current) use of insulin; Z79.4 - prison (current) use of insulin; Z79.4 - prison (current) use of insulin; Z79.4 - prison ( current) use of insulin (8) DVT prophylaxis Priority: Secondary Status: Acute - Discharge Medications Prescriptions: Levalbuterol Neb [Xopenex Neb] 1.25 mg IH [id number] #180 vial.neb Loperamide [Imodium] 2 mg PO Q4HR PRN #42 capsule PRN Reason: Diarrhea amLODIPine [Norvasc] 10 mg PO DAILY #60 tablet Chlorthalidone 25 mg PO DAILY #30 tablet cloNIDine HCl [Clonidine HCl] 0.3 mg PO HS #30 tablet cloNIDine HCl [Clonidine HCl] 0.15 mg PO 0800,1200 #30 tablet Diltiazem CD (24hr) [Cardizem CD] 180 mg PO DAILY #30 cap.er.24h Doxazosin [Cardura] 4 mg PO HS #30 tablet Escitalopram [Lexapro] 20 mg PO DAILY #60 tablet Hydralazine HCl 50 mg PO TID #90 tablet Lactobacillus [Culturelle] 2 each PO DAILY #60 cap.sprink Lisinopril [Zestril] 40 mg PO BID #60 tablet Minoxidil 2.5 mg PO BID #60 tablet predniSONE [PredniSONE] See Taper PO DAILY #30 tablet Spironolactone [Aldactone] 100 mg PO DAILY #30 tablet Home Medications: Atorvastatin Calcium [Lipitor] 20 mg PO DAILY 01/31/16 [History] Gabapentin [Neurontin] 300 mg PO HS 01/31/16 [History] SitaGLIPtin [Januvia] 100 mg PO DAILY 01/31/16 [History] metFORMIN [Glucophage] 1,000 mg PO BIDWM 01/31/16 [History] Budesonide/Formoterol 160/4.5 [Symbicort 160/4.5] 2 puff IH BIDR 04/07/16 [ History] Sucralfate [Carafate] 1 gm PO BID 04/07/16 [History] Montelukast [Singulair] 10 mg PO HS 09/02/17 [History] Pantoprazole Sodium [Protonix] 40 mg PO BID 09/02/17 [History] Tiotropium [Spiriva] 1 puff IH DAILY 09/02/17 [History] Chlorthalidone 25 mg PO DAILY #30 tablet 09/07/17 [Rx] Diltiazem CD (24hr) [Cardizem CD] 180 mg PO DAILY #30 cap.er.24h 09/07/17 [Rx] Doxazosin [Cardura] 4 mg PO HS #30 tablet 09/07/17 [Rx] Escitalopram [Lexapro] 20 mg PO DAILY #60 tablet 09/07/17 [Rx] Hydralazine HCl 50 mg PO TID #90 tablet 09/07/17 [Rx] Lactobacillus [Culturelle] 2 each PO DAILY #60 cap.sprink 09/07/17 [Rx] Levalbuterol Neb [Xopenex Neb] 1.25 mg IH [id number] #180 vial.neb 09/07/17 [Rx] Lisinopril [Zestril] 40 mg PO BID #60 tablet 09/07/17 [Rx] Loperamide [Imodium] 2 mg PO Q4HR PRN #42 capsule 09/07/17 [Rx] Minoxidil 2.5 mg PO BID #60 tablet 09/07/17 [Rx] Spironolactone [Aldactone] 100 mg PO DAILY #30 tablet 09/07/17 [Rx] amLODIPine [Norvasc] 10 mg PO DAILY #60 tablet 09/07/17 [Rx] cloNIDine HCl [Clonidine HCl] 0.15 mg PO 0800,1200 #30 tablet 09/07/17 [Rx] cloNIDine HCl [Clonidine HCl] 0.3 mg PO HS #30 tablet 09/07/17 [Rx] predniSONE [PredniSONE] See Taper PO DAILY #30 tablet 09/07/17 [Rx] Allergies/Adverse Reactions: 3 Allergy/AdvReac Type Severity Reaction Status Date / Time Beta-Blockers Allergy Difficulty Verified 08/24/17 08:52 (Beta-Adrenergic Bloc Breathing Date of admission: 09/02/17 14:29 Primary care physician: Ailyn Delatorre CNP Consults: 09/03/17 09:00 Consult to Cardiology [CONS] Stat Comment: Consulting Provider: Cardiology Lana Reason for Consult: Acute onset typical chest pain and dyspnea, tachycardia, tachypnea, elevated troponin Time Notified: 09:01 Call Completed: Yes 09/05/17 10:18 Consult to Occupational Therapy [CONS] Routine Comment: Evaluate, develop and implement POC Reason for Consult: Dyspnea, weakness Consult to Physical Therapy [CONS] Routine Comment: Evaluate, develop and implement POC Reason for Consult: Dsypnea, weakness 09/06/17 09:11 Consult to Pulmonology [CONS] Routine Consulting Provider: [facility] [place] Reason for Consult: COPD exacerbation, continued dyspnea dispite treatment. Now with right sided basilar airpsace disease on chest x-ray. Time Notified: 09:12 Call Completed: Yes Discharging clinician: Girma Guerra Anticipated date of discharge: 09/07/17 - Patient Status Disposition: Home, Self-Care Condition: Fair Functional capacity at discharge: independent ambulation Overall status at discharge: patient is progressing back to baseline - Discharge Instructions Instructions: Spironolactone (By mouth), Diltiazem (By mouth), Lisinopril (By mouth), Clonidine (By mouth), Loperamide (By mouth), Prednisone (By mouth), Minoxidil (On the skin), Doxazosin (By mouth), Chlorthalidone (By mouth), Hydralazine (By mouth), Amlodipine (By mouth), Levalbuterol (By breathing), Escitalopram (By mouth), Probiotic (By mouth), Chronic Obstructive Pulmonary Disease (DC) Follow Up With: Ailyn Delatorre CNP [Primary Care Provider] - 09/14/17 1:00 pm Joe Burton MD [Partnered Physician] - (office will call patient at home with appointment date and time) Jonah Connors CNP [Advanced Practice Nurse] - (office will call patient at home with appointment date and time) Additional Instructions: Take your medications as prescribed Take Inhalers as prescribed Stop albuterol inhaler PRN, and use Levalbuterol PRN instead Taper steroids over the next 2 weeks - 4 tabs for 3 days, then 3 tabs for 3 days, then 2 tabs for 3 days, then 1 tab for 3 days, then stop Take diltiazem 180mg daily - this is for fast heart rate Follow-up with your Primary Care Provider Follow-up with Cardiology Follow-up with Pulmonology and Pulmonary Rehab Return to the hospital if your symptoms return or worsen - Diet and Activity Activity: increase activity as tolerated, wear oxygen at all times Diet: diabetic diet, low fat, low cholesterol, low salt diet Interval History: Pt resting comfortably in bed. Reports she is feeling much improved this morning. Continues to have some dyspnea and dyspnea on exertion. Denies any further chest pain. Denies fevers, chills, syncope, light-headedness, chest pain , cough, N/V, dysuria, or leg pain/edema. Hospital course: Ms. Banda is a 51 year old female with PMH of asthma, COPD, DM, HTN, HLD, and TIA , presents to the hospital with worsening dyspnea for a week prior to admission , with acute onset chest pain and dyspnea. She was diagnosed with COPD exacerbation and possible pneumonia. CXR showed stable cardiomegaly without acute cardiopulmonary findings, no focal consolidation, pleural effusion, or pneumothorax. CTA in the ED showed no aortic dissection, no PE, mild atelectasis within lungs, no definitive infiltrate, and stable left lower lobe nodule. Lactic acid was elevated at 3.8 with a peak at 7.3, and WBC was 13.4 on admission, so antibiotics were still initiated for concern for pneumonia. She received bronchodilators, steroids, and supplemental I2 as needed. She did develop some diarrhea during her stay, but GI panel was negative. Antibiotics were de-escalated to doxycycline at this time. Troponins were elevated to a peak of 0.08 without any ischemic ECG changes. Echo showed LVEF 70% with mild- moderate concentric LV hypertrophy. Cardiology was consulted, evaluation not diagnostic for ACS and recommended further follow-up as an out-patient. She continued to remain dyspnic during hospitalization despite O2 saturation remaining normal. Repeat CXR showed concern for right basilar airspace disease, atelectasis and/or pneumonia. Pulmonology was consulted and recommended stopping antibiotics as her pneumonia seems more likely to be viral. Pulmonolgy also recommended checking IgE, continued bronchodialtors and switching to Respimat if covered, to taper steroids over 2 weeks, and to follow-up as an out- patient with Pulmonology and Pulmonary rehab. She will be qualified for oxygen prior to discharge. She is hemodynamically stable and will be discharged home to follow-up with her PCP, Cardiology, and Nephrology. - Time Spent with Patient Total time spent providing and/or coordinating discharge services: Less than 30 minutes - Constitutional Vitals: Temp Pulse Resp BP Pulse Ox 98.3 F 82 14 152/78 98 09/07/17 07:28 09/07/17 07:28 09/07/17 07:41 09/07/17 07:28 09/07/17 07:41 General appearance: Present: mild distress, A&O X 3, pleasant, answers questions appropriately - Head Head exam: Present: atraumatic, normocephalic - Eye Eye exam: Present: conjuntiva pink, sclera anicteric - Neck Neck exam general surgery: Present: supple, trachea midline. Absent: lymphadenopathy - Respiratory Respiratory exam: Present: decreased breath sounds. Absent: accessory muscle use, rales, rhonchi, wheezes - Cardiovascular Cardiovascular exam: Present: RRR, +S1, +S2, systolic murmur. Absent: diastolic murmur - GI/Abdominal GI/Abdominal exam: Present: normal bowel sounds, soft, no peritoneal signs. Absent: distended, tenderness - Extremities Exam Extremities exam: Present: warm, radial pulses palpable and symmetrical. Absent : calf tenderness, cyanotic, pedal edema - Neurological Exam Neurological exam: Present: CN II-XII intact, oriented X3, no focal deficits. Absent: facial droop, speech deficit - Skin Skin exam: Present: dry, intact - VTE Documentation of Mechanical Device: Intermittent pneumatic compression device <GabeKyle Hunt Mariza - Last Filed: 09/07/17 17:34> Date of Encounter: 09/07/17 Date of admission: 09/02/17 14:29 Primary care physician: Ailyn Delatorre CNP Consults: 09/03/17 09:00 Consult to Cardiology [CONS] Stat Comment: Consulting Provider: Cardiology Lana Reason for Consult: Acute onset typical chest pain and dyspnea, tachycardia, tachypnea, elevated troponin Time Notified: 09:01 Call Completed: Yes 09/05/17 10:18 Consult to Occupational Therapy [CONS] Routine Comment: Evaluate, develop and implement POC Reason for Consult: Dyspnea, weakness Consult to Physical Therapy [CONS] Routine Comment: Evaluate, develop and implement POC Reason for Consult: Dsypnea, weakness 09/06/17 09:11 Consult to Pulmonology [CONS] Routine Consulting Provider: [facility] Reason for Consult: COPD exacerbation, continued dyspnea dispite treatment. Now with right sided basilar airpsace disease on chest x-ray. Time Notified: 09:12 Call Completed: Yes Hospital course: Ms. Banda is a 51 year old female - Time Spent with Patient Total time spent providing and/or coordinating discharge services: - Constitutional Vitals: Temp Pulse Resp BP Pulse Ox 97.7 F 70 12 124/66 96 09/07/17 11:29 09/07/17 11:29 09/07/17 11:54 09/07/17 11:29 09/07/17 11:54 - Attending Attestation acute copd exacerbation likely secondary to viral infection, unlikely pneumonia' no need of antibiotics, received Zosyn, Azithromycin and Doxycycline ( all discontinued) time spent on this discharge : 40 min I examined this patient and my medical decision-making was reviewed with the Resident Physician. I agree with the documented findings, disposition and treatment plan as described except to the extent set forth below.
[2017-09-07] MEDS ORDERED: FLUARIX QUAD 2017-18 36MOS UP/PF 0.5 ML SYRINGE IM ONE (11:29)
[2017-09-07 11:34] VITALS: BP 124/66
== END 2017-09-07 14:26 | disposition home or self-care (01) ==
LOC: EMEROO 12:42 → 3BNU 12:42 → SUATTDRO 14:29 → 3BNU 15:26 → 2NENU 23:56
PROVIDERS: ADMIT Internal Medicine; ATTEND Internal Medicine

== ENCOUNTER 2018-01-25 07:20 | Inpatient (IN) ==
[2018-01-25] MEDS ORDERED: 0.9 % Sodium Chloride 1,000 ML IVC ONE (07:31)
[2018-01-25 07:59] LABS: Basophils # 0.1 K/mcL (0.0-0.2); Basophils % 0.8 %; Eosinophils # 0.3 K/mcL (0.0-0.6); Eosinophils % 3.5 %; Hematocrit 40.5 % (35.3-44.9); Hemoglobin 13.3 g/dL (11.5-15.4); Immature Granulocytes % 0.9 % (0-4); Immature Platelets 1.1 % (1.1-6.1); Lymphocytes # 2.1 K/mcL (0.6-4.6); Mean Corpuscular HGB Conc 32.8 g/dL (31.6-35.5); Mean Corpuscular Volume 82.3 fL (83.0-100.0); Mean Platelet Volume 9.1 fL (9.4-12.4); Monocytes # 0.5 K/mcL (0.0-1.3); Monocytes % 6.6 %; Platelet Count 220 K/mcL (140-400); Red Blood Count 4.92 M/mcL (3.82-4.97); Red Cell Distribution Width 12.4 % (11.5-14.5); Segmented Neutrophils % 62.2 %
[2018-01-25 08:12] LABS: VBG HCO3 27 mEq/L (21-27); VBG PCO2 48 mmHg (41-51); VBG PH 7.35 pH Units (7.32-7.42); VBG PO2 63 mmHg (25-50)
[2018-01-25 08:22] LABS: Bilirubin,Urine Negative (Negative); Blood,Urine Large (Negative); Color,Urine Yellow (Yellow); Glucose,Urine (UA) 500 mg/dL (Normal); Ketones,Urine Trace mg/dL (Negative); Leukocyte Esterase,Urine Trace (Negative); Nitrite,Urine Negative (Negative); PH,Urine 5.5 pH Units (5.0-8.0); Protein,Urine 30 mg/dL (Neg-Trace); Specific Gravity,Urine > 1.030 (1.010-1.025); Urobilinogen,Urine Normal (Normal)
[2018-01-25 08:24] LABS: Bacteria,Urine Few per hpf (None-Few); Hyaline Casts,Urine None Seen per lpf (None-Few); RBC,Urine 0-3 per hpf (0-3); Squamous Epithelial Cell,Urine Many per lpf (None-Few)
[2018-01-25 08:25] LABS: Troponin I < 0.03 ng/mL (< 0.04)
--- NOTE | 2018-01-25 08:27 | Emergency Department Note ---
Disposition Clinical Impression: Dehydration, Ataxia Diabetes Qualifiers: Diabetes mellitus type: other specified (including DIANE) Diabetes mellitus penitentiary insulin use: unspecified orthopaedic doctor insulin use status Diabetes mellitus complication status: with unspecified complications Qualified Code(s): E13.8 - Other specified diabetes mellitus with unspecified complications Disposition: Admitted As Inpatient Condition: Fair Referrals: Ailyn Delatorre CNP [Primary Care Provider] - Forms: ED Satisfaction Letter Time of Disposition: 09:13 General Adult HPI - General Chief complaint: ED Weakness Stated complaint: High B/P,Glucose Time Seen by Provider: 01/25/18 07:26 Source: patient, family Mode of arrival: ambulatory Limitations: no limitations Nursing Notes Reviewed: Yes Vital Signs Reviewed: Yes - History of Present Illness HPI Narrative: 52-year-old female presents emergency room with generalized malaise, weakness, difficulty with ambulating and poorly controlled glucose. Patient denies chest pain shortness of breath headache vision changes nausea vomiting or diarrhea. The nausea that she described on presentation here today started with the last 24 hours. She has also had some difficulty with what she describes as ambulating. She feels that she just the left. On the symptoms of been present since Wednesday. 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 Onset (ago): day(s) Radiation: non-radiation Pain Severity: moderate Pain Scale: 8 Quality: aching Consistency: constant Improves with: nothing Worsens with: movement Associated symptoms: Reports: confusion, loss of appetite, malaise, nausea/ vomiting, weakness Treatments Prior to Arrival: none - Related Data Home Medications Medication Instructions Recorded Confirmed Atorvastatin Calcium [Lipitor] 20 mg PO DAILY 01/31/16 10/07/17 Gabapentin [Neurontin] 300 mg PO HS 01/31/16 10/07/17 SitaGLIPtin [Januvia] 100 mg PO DAILY 01/31/16 10/07/17 Budesonide/Formoterol 160/4.5 2 puff IH BIDR 04/07/16 10/07/17 [Symbicort 160/4.5] Sucralfate [Carafate] 1 gm PO BID 04/07/16 10/07/17 Montelukast [Singulair] 10 mg PO HS 09/02/17 10/07/17 Pantoprazole Sodium [Protonix] 40 mg PO BID 09/02/17 10/07/17 Tiotropium [Spiriva] 1 puff IH DAILY 09/02/17 10/07/17 Albuterol Sulfate [Albuterol 2 puff IH Q4H PRN 10/07/17 10/07/17 Inhaler] Aspirin [Lo-Dose Aspirin EC] 81 mg PO DAILY 10/07/17 10/07/17 Escitalopram [Lexapro] 40 mg PO DAILY 10/07/17 10/07/17 Levalbuterol [Xopenex INH] 1 puff IH Q4H 10/07/17 10/07/17 buPROPion HCl [Zyban] 150 mg PO BID 10/07/17 10/07/17 predniSONE [PredniSONE] 10 mg PO DAILY 10/07/17 10/07/17 Previous Rx's Medication Instructions Recorded Chlorthalidone 25 mg PO DAILY #30 tablet 09/07/17 Diltiazem CD (24hr) [Cardizem CD] 180 mg PO DAILY #30 cap.er.24h 09/07/17 Doxazosin [Cardura] 4 mg PO HS #30 tablet 09/07/17 Hydralazine HCl 50 mg PO TID #90 tablet 09/07/17 Lactobacillus [Culturelle] 2 each PO DAILY #60 cap.sprink 09/07/17 Levalbuterol Neb [Xopenex Neb] 1.25 mg IH [id number] #180 vial.neb 09/07/17 Lisinopril [Zestril] 40 mg PO BID #60 tablet 09/07/17 Loperamide [Imodium] 2 mg PO Q4HR PRN #42 capsule 09/07/17 Minoxidil 2.5 mg PO BID #60 tablet 09/07/17 Spironolactone [Aldactone] 100 mg PO DAILY #30 tablet 09/07/17 amLODIPine [Norvasc] 10 mg PO DAILY #60 tablet 09/07/17 cloNIDine HCl [Clonidine HCl] 0.15 mg PO 0800,1200 #30 tablet 09/07/17 cloNIDine HCl [Clonidine HCl] 0.3 mg PO HS #30 tablet 09/07/17 Acetaminophen [Tylenol] 650 mg PO Q4HR PRN tablet 10/07/17 Azithromycin [Azithromycin 6-Tab 250 mg PO PER PKG DI #6 tab 12/19/17 Pack] Benzonatate [Tessalon] 100 mg PO TID #15 capsule 12/19/17 Cetirizine HCl [Zyrtec] 10 mg PO DAILY #30 tablet 12/19/17 Oseltamivir [Tamiflu] 75 mg PO DAILY #10 capsule 12/19/17 Ciprofloxacin [Cipro] 500 mg PO BID #14 tablet 12/28/17 Naproxen [Naprosyn] 500 mg PO BID PRN #20 tablet 12/28/17 Allergies Allergy/AdvReac Type Severity Reaction Status Date / Time Beta-Blockers Allergy Difficulty Verified 08/24/17 08:52 (Beta-Adrenergic Bloc Breathing All systems ED: reviewed and negative except as stated. Review of Systems: As Per HPI Constitutional: Reports: weakness. Denies: fever, chills Cardiovascular: Denies: chest pain, palpitations, dyspnea on exertion, orthopnea Respiratory: Denies: cough, dyspnea, wheezes, hemoptysis Gastrointestinal: Denies: abdominal pain, nausea, vomiting Genitourinary: Denies: dysuria, frequency, hematuria Musculoskeletal: Denies: back pain, neck pain Neurological: Denies: headache, weakness Endocrine: Denies: fatigue Past Medical History - Past Medical History Attestation: Yes The following information was validated with the patient. Source: patient Medical history: Reports: asthma, COPD, diabetes, GERD, hyperlipidemia, hypertension, TIA Surgical history: Reports: appendectomy Psychiatric history: Reports: no psych history [employer] history: Reports: non-contributory - Social History Smoking Status: Former smoker Smokeless Tobacco Status: No Alcohol use: Reports: none Drug use: Reports: none Physical Exam - General Limitations: no limitations General appearance: alert, in no apparent distress - Head Head exam: atraumatic, normocephalic, normal inspection - Eye Eye exam: Present: normal appearance, PERRL, EOMI. Absent: scleral icterus, conjunctival injection, nystagmus - ENT ENT exam: normal exam, normal oropharynx, mucous membranes moist - Neck Neck exam: Present: normal inspection, full ROM, trachea midline - Chest Chest inspection: Present: normal inspection, symmetric chest wall rise - Respiratory Respiratory exam: Present: normal lung sounds bilaterally. Absent: respiratory distress, wheezes, accessory muscle use - Cardiovascular Cardiovascular exam: Present: regular rate, bradycardia, normal heart sounds - Abdominal Exam Abdominal exam: Present: soft, Non-Tender, normal bowel sounds. Absent: tenderness, distention, guarding, rebound, rigidity, Sandoval's sign, Rovsing's sign, tenderness at McBurney's Point - Extremities Exam Extremities exam: Present: normal inspection, full ROM, normal capillary refill. Absent: tenderness - Back Exam Back exam: Present: normal inspection, full ROM. Absent: tenderness - Neurological Exam Neurological exam: Present: alert, oriented X3, CN II-XII intact, normal gait - Psychiatric Psychiatric exam: Present: normal affect, normal mood - Skin Skin exam: Present: warm, dry, intact, normal color Course Course Narrative: patient seen and examined the time of arrival. See history of present illness. 52-year-old female presents to the emergency room with multiple complaints. She is a diabetic. She also has history of strokes. Patient over the last 48 hours his had issues with poorly controlled diabetes, headache, weakness, confusion. Patient denies any recent illnesses trauma or injury. She has been compliant with her medications according to her. Vital signs reviewed and are stable outside of slight bradycardia along with slight hypertension. Patient denies chest pain shortness of breath headache vision changes. She has had intermittent nausea with no vomiting. She has no diarrhea. Denies any fevers or chills. Currently on my physical exam, patient is resting comfortably in the bed head is atraumatic pupils are equal round and reactive extraocular muscles are intact mucous membranes are moist. Trachea is midline. Patient has full range of motion of the neck with no lymphadenopathy no meningeal symptoms. Lungs are clear heart is regular abdomen is soft nontender nondistended no guarding no rigidity no peritoneal symptoms. Patient moves all 4 of her extremities without any difficulty. She has palpable radial pulses bilaterally that are symmetric. She has palpable DP and PT pulses that appear to be symmetric bilaterally as well. Patient has no signs of pitting edema. Concern is noted for poorly controlled diabetes with an Accu-Chek of greater than 300 on arrival. We also have concern for possible neurologic issues. The patient's symptoms have been present for 48 hours. She describes some drifting to the left when she gets up to walk but also feels lightheaded. Fluid resuscitation as well as nausea medication along with CT imaging of the head and CT angiography of the chest will be completed. Patient does have discomfort in the chest wall with the nausea and the vomiting and then blood pressure discrepancy between the right upper and left upper extremities at this time despite the pulses be and symmetric. Patient is clinically concerning for multiple etiology at this point. Disposition pending the full workup and treatment course. Symptom control established. CBC chemistry BNP and troponin are added on at this point. We will continue monitor his treatment course is completed. Diabetic ketoacidosis evaluation will be completed as well. - Reevaluation(s) Reevaluation #1: Patient is resting comfortably in the bed with stable blood pressure. Her heart rate is still bradycardic but otherwise unremarkable. And denies any nausea and has not had any episodes nausea and vomiting here. Labs are unremarkable. No signs of renal insufficiency. CT angiography of the chest and CT the head are still pending. We will continue to monitor here until admission process is completed. Time: 09:58 Reevaluation #2: CT imaging of the chest and the head are negative at this time for acute abnormality. Patient's labs appear to be stable except for poorly controlled glucose. Her nausea generalized malaise could be associated with poor controlled diabetes at this time but the leftward drift and what she describes as ataxia is concerning. Patient will have further workup for neurologic issues. Patient does not require emergent neurologic evaluation considering the symptoms have been present for 2 days at this time. She has had previous CVA on the right side of her brain that does show dilation of the right ventricle and is chronic according to previous workups and evaluations and reviewed by the radiologist. Time: 10:22 Vital Signs Temperature 97.8 F 01/25/18 07:21 Pulse Rate 68 01/25/18 07:21 Respiratory Rate 16 01/25/18 07:21 Blood Pressure 184/92 01/25/18 07:21 O2 Sat by Pulse Oximetry 98 01/25/18 07:21 Temperature 97.8 F 01/25/18 07:21 Pulse Rate 52 01/25/18 08:27 Respiratory Rate 16 01/25/18 08:27 Blood Pressure 142/77 01/25/18 08:27 O2 Sat by Pulse Oximetry 97 01/25/18 08:27 Oxygen Delivery Oxygen Delivery Room Air Medical Decision Making - MDM Narrative Medical decision making narrative: weakness, diabetes, - Medical Records Medical records reviewed: Yes I reviewed the patient's medical records. - Lab Data Lab results reviewed: Yes I reviewed the patient's lab results. Result diagrams: 01/25/18 07:45 01/25/18 07:45 Lab Results 01/25/18 01/25/18 01/25/18 Range/Units 07:34 07:45 07:45 WBC 8.0 (4.3-11.1) K/mcL RBC 4.92 (3.82-4.97) M/mcL Hgb 13.3 (11.5-15.4) g/dL Hct 40.5 (35.3-44.9) % MCV 82.3 L (83.0-100.0) fL MCH 27.0 L (28.0-33.3) pg MCHC 32.8 (31.6-35.5) g/dL RDW 12.4 (11.5-14.5) % Plt Count 220 (140-400) K/mcL MPV 9.1 L (9.4-12.4) fL Immature Gran % 0.9 (0-4) % Seg Neutrophils % 62.2 % Lymphocytes % 26.0 % Monocytes % 6.6 % Eosinophils % 3.5 % Basophils % 0.8 % Neutrophils # 5.0 (1.6-8.9) K/mcL Lymphocytes # 2.1 (0.6-4.6) K/mcL Monocytes # 0.5 (0.0-1.3) K/mcL Eosinophils # 0.3 (0.0-0.6) K/mcL Basophils # 0.1 (0.0-0.2) K/mcL Immature Plt Fraction 1.1 (1.1-6.1) % VBG pH (7.32-7.42) pH Units VBG pCO2 (41-51) mmHg VBG pO2 (25-50) mmHg VBG HCO3 (21-27) mEq/L Sodium 136 (136-145) mEq/L Potassium 4.2 (3.5-5.1) mEq/L Chloride 104 (98-107) mEq/L Carbon Dioxide 25 (23-29) mEq/L BUN 15 (6-20) mg/dL Creatinine 0.68 (0.60-1.20) mg/dL Est GFR ( Amer) > 60 (> 60) Est GFR (Non-Af Amer) > 60 (> 60) BUN/Creatinine Ratio 22 (6-26) Glucose 239 H (70-105) mg/dL POC Glucose 210 H (58-89) mg/dL Est Mean Plasma Glucose mg/dl Hemoglobin A1c ( - 5.6) % Calculated Osmolality 291 (280-300) Lactic Acid (0.5-2.2) mmol/L Calcium 9.0 (8.6-10.3) mg/dL Phosphorus 3.1 (2.7-4.5) mg/dL Magnesium 1.7 (1.6-2.6) mg/dL Troponin I < 0.03 (< 0.04) ng/mL Beta-Hydroxybutyric Acd (0.02-0.27) mmol/L Urine Color (Yellow) Urine Clarity (Clear) Urine pH (5.0-8.0) pH Units Ur Specific [place] (1.010-1.025) Urine Protein (Neg-Trace) mg/dL Urine Glucose (UA) (Normal) mg/dL Urine Ketones (Negative) mg/dL Urine Blood (Negative) Urine Nitrite (Negative) Urine Bilirubin (Negative) Urine Urobilinogen (Normal) mg/dL Ur Leukocyte Esterase (Negative) Urine Microscopic RBC (0-3) per hpf Urine Microscopic WBC (0-3) per hpf Ur Squamous Epith Cells (None-Few) per lpf Calcium Oxalate Crystal Urine Bacteria (None-Few) per hpf Hyaline Casts (None-Few) per lpf Urine Yeast Ur Culture Indicated? (NO) 01/25/18 01/25/18 01/25/18 Range/Units 07:45 07:45 07:45 WBC (4.3-11.1) K/mcL RBC (3.82-4.97) M/mcL Hgb (11.5-15.4) g/dL Hct (35.3-44.9) % MCV (83.0-100.0) fL MCH (28.0-33.3) pg MCHC (31.6-35.5) g/dL RDW (11.5-14.5) % Plt Count (140-400) K/mcL MPV (9.4-12.4) fL Immature Gran % (0-4) % Seg Neutrophils % % Lymphocytes % % Monocytes % % Eosinophils % % Basophils % % Neutrophils # (1.6-8.9) K/mcL Lymphocytes # (0.6-4.6) K/mcL Monocytes # (0.0-1.3) K/mcL Eosinophils # (0.0-0.6) K/mcL Basophils # (0.0-0.2) K/mcL Immature Plt Fraction (1.1-6.1) % VBG pH (7.32-7.42) pH Units VBG pCO2 (41-51) mmHg VBG pO2 (25-50) mmHg VBG HCO3 (21-27) mEq/L Sodium (136-145) mEq/L Potassium (3.5-5.1) mEq/L Chloride (98-107) mEq/L Carbon Dioxide (23-29) mEq/L BUN (6-20) mg/dL Creatinine (0.60-1.20) mg/dL Est GFR ( Amer) (> 60) Est GFR (Non-Af Amer) (> 60) BUN/Creatinine Ratio (6-26) Glucose (70-105) mg/dL POC Glucose (58-89) mg/dL Est Mean Plasma Glucose 220 mg/dl Hemoglobin A1c 9.3 H ( - 5.6) % Calculated Osmolality (280-300) Lactic Acid 1.6 (0.5-2.2) mmol/L Calcium (8.6-10.3) mg/dL Phosphorus (2.7-4.5) mg/dL Magnesium (1.6-2.6) mg/dL Troponin I (< 0.04) ng/mL Beta-Hydroxybutyric Acd 0.12 (0.02-0.27) mmol/L Urine Color (Yellow) Urine Clarity (Clear) Urine pH (5.0-8.0) pH Units Ur Specific [place] (1.010-1.025) Urine Protein (Neg-Trace) mg/dL Urine Glucose (UA) (Normal) mg/dL Urine Ketones (Negative) mg/dL Urine Blood (Negative) Urine Nitrite (Negative) Urine Bilirubin (Negative) Urine Urobilinogen (Normal) mg/dL Ur Leukocyte Esterase (Negative) Urine Microscopic RBC (0-3) per hpf Urine Microscopic WBC (0-3) per hpf Ur Squamous Epith Cells (None-Few) per lpf Calcium Oxalate Crystal Urine Bacteria (None-Few) per hpf Hyaline Casts (None-Few) per lpf Urine Yeast Ur Culture Indicated? (NO) 01/25/18 01/25/18 Range/Units 08:00 08:07 WBC (4.3-11.1) K/mcL RBC (3.82-4.97) M/mcL Hgb (11.5-15.4) g/dL Hct (35.3-44.9) % MCV (83.0-100.0) fL MCH (28.0-33.3) pg MCHC (31.6-35.5) g/dL RDW (11.5-14.5) % Plt Count (140-400) K/mcL MPV (9.4-12.4) fL Immature Gran % (0-4) % Seg Neutrophils % % Lymphocytes % % Monocytes % % Eosinophils % % Basophils % % Neutrophils # (1.6-8.9) K/mcL Lymphocytes # (0.6-4.6) K/mcL Monocytes # (0.0-1.3) K/mcL Eosinophils # (0.0-0.6) K/mcL Basophils # (0.0-0.2) K/mcL Immature Plt Fraction (1.1-6.1) % VBG pH 7.35 (7.32-7.42) pH Units VBG pCO2 48 (41-51) mmHg VBG pO2 63 H (25-50) mmHg VBG HCO3 27 (21-27) mEq/L Sodium (136-145) mEq/L Potassium (3.5-5.1) mEq/L Chloride (98-107) mEq/L Carbon Dioxide (23-29) mEq/L BUN (6-20) mg/dL Creatinine (0.60-1.20) mg/dL Est GFR ( Amer) (> 60) Est GFR (Non-Af Amer) (> 60) BUN/Creatinine Ratio (6-26) Glucose (70-105) mg/dL POC Glucose (58-89) mg/dL Est Mean Plasma Glucose mg/dl Hemoglobin A1c ( - 5.6) % Calculated Osmolality (280-300) Lactic Acid (0.5-2.2) mmol/L Calcium (8.6-10.3) mg/dL Phosphorus (2.7-4.5) mg/dL Magnesium (1.6-2.6) mg/dL Troponin I (< 0.04) ng/mL Beta-Hydroxybutyric Acd (0.02-0.27) mmol/L Urine Color Yellow (Yellow) Urine Clarity Hazy A (Clear) Urine pH 5.5 (5.0-8.0) pH Units Ur Specific [place] > 1.030 H (1.010-1.025) Urine Protein 30 H (Neg-Trace) mg/dL Urine Glucose (UA) 500 H (Normal) mg/dL Urine Ketones Trace H (Negative) mg/dL Urine Blood Large H (Negative) Urine Nitrite Negative (Negative) Urine Bilirubin Negative (Negative) Urine Urobilinogen Normal (Normal) mg/dL Ur Leukocyte Esterase Trace H (Negative) Urine Microscopic RBC 0-3 (0-3) per hpf Urine Microscopic WBC 5-15 H (0-3) per hpf Ur Squamous Epith Cells Many H (None-Few) per lpf Calcium Oxalate Crystal Present Urine Bacteria Few (None-Few) per hpf Hyaline Casts None Seen (None-Few) per lpf Urine Yeast Test Not Performed Ur Culture Indicated? NO. (NO) - Radiology Data Radiology results reviewed: Yes I reviewed the patient's radiology results. Chest x-ray is unremarkable - EKG Data EKG #1 EKG attestation: Yes I reviewed and interpreted this EKG. EKG results narrative: EKG shows sinus bradycardia. Ventricular rate of 58. MA interval 171. QRS duration of 89. QTC of 420. [place] appears to be normal. Slightly peaked T waves in leads V2 and V3 appear to be chronic in presentation with no acute signs of ST segment elevation or abnormality. There is no acute signs of WPW or [place]. Patient is otherwise clinically stable and denying chest pain at this time. Compared to previous EKG on 12/28/17
[2018-01-25 08:29] LABS: Clarity,Urine Hazy (Clear)
[2018-01-25 08:41] LABS: Calcium Oxalate Crystals,Urine Present
[2018-01-25 08:59] LABS: Estimated Average Glucose 220 mg/dl; Hemoglobin A1C 9.3 %
[2018-01-25 09:20] LABS: BUN/Creatinine Ratio 22 (6-26); Blood Urea Nitrogen 15 mg/dL (6-20); Carbon Dioxide 25 mEq/L (23-29); Chloride 104 mEq/L (98-107); Glucose 239 mg/dL (70-105); Magnesium 1.7 mg/dL (1.6-2.6); Osmolality,Calculated 291 (280-300); Phosphorous 3.1 mg/dL (2.7-4.5); Potassium 4.2 mEq/L (3.5-5.1); Sodium 136 mEq/L (136-145); eGFR For African Americans > 60 (> 60); eGFR For Non-African Americans > 60 (> 60)
[2018-01-25] MEDS ORDERED: Aspirin 81 MG TAB.CHEW PO STA (10:23)
[2018-01-25 10:37] LABS: Thyroid Stimulating Hormone 2.019 mcIU/mL (0.340-5.600)
[2018-01-25] MEDS ORDERED: Naloxone 0.4 MG/ML INJ IVP PRN (12:15)
[2018-01-25] MEDS ORDERED: Acetaminophen 325 MG TABLET PO PRN (12:15)
[2018-01-25] MEDS ORDERED: D5% in Water 1,000 ML IVC PRN (12:20)
[2018-01-25] MEDS ORDERED: *HR* Dextrose 50 % in Water (Syg) 50 ML SYRINGE IVP PRN (12:20)
[2018-01-25] MEDS ORDERED: Dextrose Gel 15 GM/37.5 ML TUBE PO PRN ×2 (12:20)
--- NOTE | 2018-01-25 12:37 | Internal Med History&Physical ---
Date of Encounter: 01/25/18 Time of Encounter: 12:27 Internal Medicine - H&P: HPI Chief complaint: Weakness Admitted From: Emergency Dept Plans for Post Hospital Care: Home History of present illness: Ms. Banda is a 52 year old female with h/o- uncontrolled HTN and DM, who presents with c/o- weakness and gait instability. Patient reports feeling sick since 2 days, with nausea and vomiting, generalized weakness and malaise, which have somewhat improved. However she has been having gait instability and left-sided deviation/preference to gait along with some nausea. SHe also reports ongoing headache, mild to moderate in intensity, diffuse, for the last 2 days, with no blurred vision, paresthesias, focal weakness, slurred speech or facial droop. No dysphagia, chest pain, dyspnea; Past Med Surg Social Fam HX - Past Medical History Medical history: asthma, COPD, coronary artery disease, diabetes, GERD, hyperlipidemia, hypertension, TIA Psychiatric history: depression - Past Surgical History Surgical History: appendectomy - Social History Smoking Status: Former smoker Smokeless Tobacco Status: No Alcohol use: none Drug use: none Occupational status: unemployed Current living situation: Home, With Family Activity Level: Independent ambulation Recent Out of Country Travel Within the Last 8 Weeks: No Exposure or Possible Exposure to Illness During Travel: No - Family History Father Living Status: Cause of : brain aneurysm Mother Family Member Ethnicity: Non- Living Status: Cause of : massive [place] Hx Family Cardiac Disorders: Yes Hx Family Respiratory Disorders: No Hx Family Cancer: No Hx Family GI Disorders: No Hx Family Endocrine Disorder: Yes (DM) Hx Family Neuromuscular Disorders: No Hx Family Neurologic Disorders: No Hx Family HEENT Disorders: No Hx Family Autoimmune Disorders: No Internal Medicine - H&P: Meds Gabapentin [Neurontin] 300 mg PO HS 01/31/16 [History] SitaGLIPtin [Januvia] 100 mg PO DAILY 01/31/16 [History] Budesonide/Formoterol 160/4.5 [Symbicort 160/4.5] 2 puff IH BIDR 04/07/16 [ History] Sucralfate [Carafate] 1 gm PO BID 04/07/16 [History] Montelukast [Singulair] 10 mg PO HS 09/02/17 [History] Pantoprazole Sodium [Protonix] 40 mg PO BID 09/02/17 [History] Chlorthalidone 25 mg PO DAILY #30 tablet 09/07/17 [Rx] Diltiazem CD (24hr) [Cardizem CD] 180 mg PO DAILY #30 cap.er.24h 09/07/17 [Rx] Doxazosin [Cardura] 4 mg PO HS #30 tablet 09/07/17 [Rx] Hydralazine HCl 50 mg PO TID #90 tablet 09/07/17 [Rx] Lactobacillus [Culturelle] 2 each PO DAILY #60 cap.sprink 09/07/17 [Rx] Levalbuterol Neb [Xopenex Neb] 1.25 mg IH [id number] #180 vial.neb 09/07/17 [Rx] Lisinopril [Zestril] 40 mg PO BID #60 tablet 09/07/17 [Rx] Loperamide [Imodium] 2 mg PO Q4HR PRN #42 capsule 09/07/17 [Rx] Minoxidil 2.5 mg PO BID #60 tablet 09/07/17 [Rx] Spironolactone [Aldactone] 100 mg PO DAILY #30 tablet 09/07/17 [Rx] amLODIPine [Norvasc] 10 mg PO DAILY #60 tablet 09/07/17 [Rx] cloNIDine HCl [Clonidine HCl] 0.3 mg PO HS #30 tablet 09/07/17 [Rx] Acetaminophen [Tylenol] 650 mg PO Q4HR PRN tablet 10/07/17 [Rx] Albuterol Sulfate [Albuterol Inhaler] 2 puff IH Q4H PRN 10/07/17 [History] Aspirin [Lo-Dose Aspirin EC] 81 mg PO DAILY 10/07/17 [History] Cetirizine HCl [Zyrtec] 10 mg PO DAILY #30 tablet 12/19/17 [Rx] Amitriptyline [Elavil] 10 - 20 mg PO HS 01/25/18 [History] Atorvastatin [Lipitor] 40 mg PO HS 01/25/18 [History] Bupropion HCl [Wellbutrin Xl] 300 mg PO DAILY 01/25/18 [History] Escitalopram [Lexapro] 20 mg PO DAILY 01/25/18 [History] Glimepiride [Amaryl] 4 mg PO BID 01/25/18 [History] Metformin HCl [Glucophage] 1,000 mg PO BID 01/25/18 [History] Ranitidine HCl [Acid Supervisor Carbon Electrodes] 150 mg PO BID 01/25/18 [History] Umeclidinium [place] [Incruse Ellipta] 1 puff IH DAILY 01/25/18 [History] 3 Allergy/AdvReac Type Severity Reaction Status Date / Time Beta-Blockers Allergy Difficulty Verified 08/24/17 08:52 (Beta-Adrenergic Bloc Breathing All Systems PM: A 10-system review of systems was performed and is negative for pertinent findings except as documented above in the HPI. - Constitutional Constitutional: malaise, weakness, no chills, no fever(s), no night sweats - EENT Eyes: no change in vision, no discharge, no pain, no photophobia Ears: no ear discharge, no ear pain, no tinnitus Nose, mouth and throat: no dysphagia, no nasal discharge, no neck pain, no sore throat - Cardiovascular Cardiovascular ROS IM: lightheadedness, no chest pain, no diaphoresis, no dyspnea, no palpitations, no syncope - Respiratory Respiratory: no cough, no dyspnea, no wheezing, no excessive phlegm production - Gastrointestinal Gastrointestinal: nausea - Genitourinary Genitourinary: no change in urinary stream, no dysuria, no flank pain, no hematuria - Musculoskeletal Musculoskeletal ROS IM: no numbness, no tingling - Integumentary Integumentary IM: no rash, no unusual bruising - Neurological Neurological ROS: abnormal gait, behavioral changes, confusion, disequilibrium, dizziness, headache(s), lack of coordination - Hematologic/Lymphatic Hematologic/Lymphatic: no easy bruising - Constitutional Vitals: Temp Pulse Resp BP Pulse Ox 97.9 F 54 15 173/80 98 01/25/18 11:08 01/25/18 11:08 01/25/18 11:08 01/25/18 11:08 01/25/18 11:43 General appearance: Present: A&O X 3, answers questions appropriately - Respiratory Respiratory exam: Present: CTAB. Absent: accessory muscle use, rales, rhonchi, wheezes - Cardiovascular Cardiovascular exam: Present: bradycardia, RRR, +S1, +S2. Absent: diastolic murmur, gallop, rubs, systolic murmur - GI/Abdominal GI/Abdominal exam: Present: normal bowel sounds, soft, no peritoneal signs. Absent: distended, tenderness - Extremities Exam Extremities exam: Present: full ROM, warm, radial pulses palpable and symmetrical. Absent: calf tenderness, cyanotic, pedal edema - Neurological Exam Neurological exam: Present: CN II-XII intact, oriented X3, no focal deficits. Absent: pronater drift, facial droop, speech deficit - Skin Skin exam: Present: dry, intact Internal Med - H&P Results - Labs CBC & Chem 7: 01/25/18 07:45 01/25/18 07:45 - Assessment and plan (1) Ataxia Current Visit: Yes Status: Acute Assessment and plan: New onset, to r/o CVA; CT head showed no acute abnormality. Check MRI brain and Carotid Doppler. EKG reviewed independently- shows sinus bradycardia, with repolarization abnormality in anterior leads, old changes. Echocardiogram from Aug 2017 shows preserved EF, mild to moderate concentric LVH, no atrial clots/ fibrillation. PT evaluation; monitor vital signs closely; DVT prophylaxis with s.c Heparin; (2) GERD (gastroesophageal reflux disease) Current Visit: Yes Status: Chronic Assessment and plan: continue BID PPI; Qualifiers: Esophagitis presence: esophagitis presence not specified Qualified Code(s) : K21.9 - Gastro-esophageal reflux disease without esophagitis (3) CAD (coronary artery disease) Current Visit: Yes Status: Chronic Assessment and plan: [facility] from Aug 2017 showed moderate CAD, no intervention; continue ASA and statin; Qualifiers: Coronary Disease-Associated Artery/Lesion type: [place] artery [place] vs. transplanted heart: [place] heart Associated angina: without angina Qualified Code(s): I25.10 - Atherosclerotic heart disease of [place] coronary artery without angina pectoris (4) Diabetes Current Visit: Yes Status: Chronic Assessment and plan: RBG is 239; HbA1C noted to be 9.3%; continue Accucheck blood glucose monitoring with SSI as needed; she reports her sugars have been running high at home, started on new meds recently; diabetic diet; Qualifiers: Diabetes mellitus type: type 2 Diabetes mellitus long term care phlebotomist insulin use: without long term care phlebotomist use Diabetes mellitus complication status: with hyperglycemia Qualified Code(s): E11.65 - Type 2 diabetes mellitus with hyperglycemia (5) Asthma Current Visit: Yes Status: Chronic Assessment and plan: Mixed asthma/COPD, follows with Pulmonology as outpatient; continue home meds- PRN Xopenex neb, Singulair, Symbicort and Incruse Ellipta; supplemental O2 PRN; Qualifiers: Asthma severity: mild Asthma persistence: intermittent Asthma complication type: uncomplicated Qualified Code(s): J45.20 - Mild intermittent asthma, uncomplicated (6) HTN (hypertension) Current Visit: Yes Status: Chronic Assessment and plan: difficult to control as an outpatient; follows with Cardiology and Nephrology; hold Cardizem and diuretics for now due to dizziness and bradycardia; continue Norvasc, Minoxidil, ACEI, Hydralazine, Cardura and Clonidine; use PRN IV Hydralazine for appropriate BP control; Qualifiers: Hypertension type: essential hypertension Qualified Code(s): I10 - Essential (primary) hypertension (7) Pulmonary nodule, left Current Visit: Yes Status: Chronic Assessment and plan: stable, likely benign per reports; (8) HLD (hyperlipidemia) Current Visit: Yes Status: Chronic Assessment and plan: check lipid profile; continue statin; Qualifiers: Hyperlipidemia type: unspecified Qualified Code(s): E78.5 - Hyperlipidemia , unspecified (9) Depression Current Visit: Yes Status: Chronic Assessment and plan: continue home meds; Qualifiers: Depression Type: unspecified Qualified Code(s): F32.9 - Major depressive disorder, single episode, unspecified - Time Spent With Patient Total time spent is greater than 50% in coordination of care (as documented) at patient's floor/unit and/or counseling patient:
[2018-01-25] MEDS: *HR* Heparin 5,000 UNIT/ML VIAL SQ SCH ×2 (14:15→21:47)
[2018-01-25] MEDS: hydrALAZINE 25 MG TABLET PO SCH ×2 (14:15→21:46)
[2018-01-25] MEDS: Levalbuterol Neb 1.25 MG/3 ML IH SCH ×3 (16:41→23:52)
[2018-01-25] MEDS: Insulin LISPRO 300 UNITS/3 ML VIAL SQ SCH ×2 (18:23→21:47)
[2018-01-25] MEDS: Budesonide/Formoterol 160/4.5 MDI IH SCH (19:44)
[2018-01-25] MEDS: Gabapentin 300 MG CAPSULE PO SCH (21:46)
[2018-01-25] MEDS: cloNIDine HCl 0.1 MG TABLET PO SCH (21:46)
[2018-01-25] MEDS: Lisinopril 20 MG TABLET PO SCH (21:46)
[2018-01-25] MEDS: Sucralfate 1 GM TABLET PO SCH (21:47)
[2018-01-26 01:25] LABS: Basophils # 0.1 K/mcL (0.0-0.2); Basophils % 0.8 %; Eosinophils # 0.2 K/mcL (0.0-0.6); Eosinophils % 2.5 %; Hematocrit 38.2 % (35.3-44.9); Hemoglobin 12.8 g/dL (11.5-15.4); Immature Granulocytes % 0.8 % (0-4); Lymphocytes # 2.4 K/mcL (0.6-4.6); Lymphocytes % 27.4 %; Mean Corpuscular HGB Conc 33.5 g/dL (31.6-35.5); Mean Corpuscular Hemoglobin 27.2 pg (28.0-33.3); Mean Corpuscular Volume 81.3 fL (83.0-100.0); Mean Platelet Volume 9.5 fL (9.4-12.4); Monocytes # 0.6 K/mcL (0.0-1.3); Monocytes % 6.6 %; Neutrophils # 5.4 K/mcL (1.6-8.9); Platelet Count 199 K/mcL (140-400); Red Cell Distribution Width 12.5 % (11.5-14.5); Segmented Neutrophils % 61.9 %
[2018-01-26 01:47] LABS: BUN/Creatinine Ratio 24 (6-26); Blood Urea Nitrogen 17 mg/dL (6-20); Calcium 8.4 mg/dL (8.6-10.3); Carbon Dioxide 24 mEq/L (23-29); Chloride 107 mEq/L (98-107); Chol/HDL Ratio 5.1 (0-4.9); Cholesterol 168 mg/dL (< 200); Glucose 241 mg/dL (70-105); HDL Cholesterol 33 mg/dL (40-59); LDL Cholesterol,Calculated 99 mg/dL (0-99); Osmolality,Calculated 295 (280-300); Potassium 3.6 mEq/L (3.5-5.1); Sodium 138 mEq/L (136-145); Triglycerides 180 mg/dL (< 150); eGFR For African Americans > 60 (> 60); eGFR For Non-African Americans > 60 (> 60)
[2018-01-26] MEDS: Levalbuterol Neb 1.25 MG/3 ML IH SCH ×5 (03:57→20:46)
[2018-01-26] MEDS: *HR* Heparin 5,000 UNIT/ML VIAL SQ SCH ×3 (05:11→21:01)
--- NOTE | 2018-01-26 05:54 | Electrocardiograph Report ---
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
[2018-01-26] MEDS: Budesonide/Formoterol 160/4.5 MDI IH SCH ×2 (07:36→20:46)
--- NOTE | 2018-01-26 08:32 | Neurology - Consult Note ---
Date of Encounter: 01/26/18 Time of Encounter: 08:29 Assessment and Plan (1) Brainstem infarct, acute Current Visit: Yes Status: Acute Patient has suffered an acute infarct in the in the karen. I believe that this acute infarct explains all of her presenting symptoms which include ataxia nausea and vomiting. Her admitting blood pressure was 170/80. MRI does show other infarcts including remote infarcts in the right basal ganglia, left cerebellum, and the thalamus bilaterally. Her risk factors include diabetes hypertension and hyperlipidemia. She had an echocardiogram completed in August 2017 which was normal. Carotid duplex Doppler study is pending. Recommendations include stroke protocol nursing orders, I also recommend switching her from aspirin to Plavix 75 mg daily. I am not recommending double antiplatelet therapy therefore the aspirin should be discontinued. She may need a brief stent of inpatient rehabilitation therapy, however I believe her overall prognosis for recovery is good. Risk factor management is paramount maintain statins and antihypertensives. I will check on her carotid Doppler study later. History of Present Illness HPI: Ms. Banda is a 52 year old female with a history of hypertension, diabetes and previous strokes being seen for neurologic consultation secondary to acute pontine infarct. He states that upon awakening from her sleep on Wednesday which was 3 days ago she felt a bit off balance and had extreme nausea and vomiting. This went on Wednesday and only Wednesday. She is admitted to the hospital on 01/25/2018 because of these symptoms. Upon admission her blood pressure was elevated at 170/80. MRI scan of the brain revealed an acute pontine infarct, as well as remote lacunar infarcts in the right basal ganglia, left cerebellum and bilateral thalamus infarcts. She remains ataxic but is awake and alert. She did have a headache at the onset in the occipital nuchal region. She denies diplopia. Past Med Surg Social Fam HX - Past Medical History Medical history: asthma, COPD, coronary artery disease, diabetes, GERD, hyperlipidemia, hypertension, TIA Psychiatric history: depression - Past Surgical History Surgical History: appendectomy - Social History Smoking Status: Former smoker Smokeless Tobacco Status: No Alcohol use: none Drug use: none - Family History Father Living Status: Cause of : brain aneurysm Mother Family Member Ethnicity: Non- Living Status: Cause of : massive [place] Hx Family Cardiac Disorders: Yes Hx Family Respiratory Disorders: No Hx Family Cancer: No Hx Family GI Disorders: No Hx Family Endocrine Disorder: Yes (DM) Hx Family Neuromuscular Disorders: No Hx Family Neurologic Disorders: No Hx Family HEENT Disorders: No Hx Family Autoimmune Disorders: No Medications and Allergies Gabapentin [Neurontin] 300 mg PO HS 01/31/16 [History] SitaGLIPtin [Januvia] 100 mg PO DAILY 01/31/16 [History] Budesonide/Formoterol 160/4.5 [Symbicort 160/4.5] 2 puff IH BIDR 04/07/16 [ History] Sucralfate [Carafate] 1 gm PO BID 04/07/16 [History] Montelukast [Singulair] 10 mg PO HS 09/02/17 [History] Pantoprazole Sodium [Protonix] 40 mg PO BID 09/02/17 [History] Chlorthalidone 25 mg PO DAILY #30 tablet 09/07/17 [Rx] Diltiazem CD (24hr) [Cardizem CD] 180 mg PO DAILY #30 cap.er.24h 09/07/17 [Rx] Doxazosin [Cardura] 4 mg PO HS #30 tablet 09/07/17 [Rx] Hydralazine HCl 50 mg PO TID #90 tablet 09/07/17 [Rx] Lactobacillus [Culturelle] 2 each PO DAILY #60 cap.sprink 09/07/17 [Rx] Levalbuterol Neb [Xopenex Neb] 1.25 mg IH [id number] #180 vial.neb 09/07/17 [Rx] Lisinopril [Zestril] 40 mg PO BID #60 tablet 09/07/17 [Rx] Loperamide [Imodium] 2 mg PO Q4HR PRN #42 capsule 09/07/17 [Rx] Minoxidil 2.5 mg PO BID #60 tablet 09/07/17 [Rx] Spironolactone [Aldactone] 100 mg PO DAILY #30 tablet 09/07/17 [Rx] amLODIPine [Norvasc] 10 mg PO DAILY #60 tablet 09/07/17 [Rx] cloNIDine HCl [Clonidine HCl] 0.3 mg PO HS #30 tablet 09/07/17 [Rx] Acetaminophen [Tylenol] 650 mg PO Q4HR PRN tablet 10/07/17 [Rx] Albuterol Sulfate [Albuterol Inhaler] 2 puff IH Q4H PRN 10/07/17 [History] Aspirin [Lo-Dose Aspirin EC] 81 mg PO DAILY 10/07/17 [History] Cetirizine HCl [Zyrtec] 10 mg PO DAILY #30 tablet 12/19/17 [Rx] Amitriptyline [Elavil] 10 - 20 mg PO HS 01/25/18 [History] Atorvastatin [Lipitor] 40 mg PO HS 01/25/18 [History] Bupropion HCl [Wellbutrin Xl] 300 mg PO DAILY 01/25/18 [History] Escitalopram [Lexapro] 20 mg PO DAILY 01/25/18 [History] Glimepiride [Amaryl] 4 mg PO BID 01/25/18 [History] Metformin HCl [Glucophage] 1,000 mg PO BID 01/25/18 [History] Ranitidine HCl [Acid Community Integration Specialist] 150 mg PO BID 01/25/18 [History] Umeclidinium [place] [Incruse Ellipta] 1 puff IH DAILY 01/25/18 [History] 3 Allergy/AdvReac Type Severity Reaction Status Date / Time Beta-Blockers Allergy Difficulty Verified 08/24/17 08:52 (Beta-Adrenergic Bloc Breathing All Systems: The remainder of the systems were reviewed and are negative Review of Systems: 10 point review of systems is consistent with a history of present illness and otherwise negative. Physical Examination - Vital Signs Vital Signs: Initial Vital Signs Temp Pulse Resp BP Pulse Ox 97.8 F 68 16 184/92 98 01/25/18 07:21 01/25/18 07:21 01/25/18 07:21 01/25/18 07:21 01/25/18 07:21 - Neurologic Motor examination - right side: 5/5: deltoids, biceps, triceps, slot editor, hip flexors, tibialis Anterior, quadriceps, toe extension (EHL), plantarflexion Motor examination - left side: 4/5: deltoids, biceps, triceps, hip flexors, slot editor , quadriceps, tibialis Anterior, toe extension (EHL), plantarflexion Detailed sensory examination: other (Pinprick is decreased in a distal to proximal gradient.) Reflex and gait examination: ataxic gate (Deep tendon reflexes are 2 symmetrically of the biceps triceps and brachial radialis, 1 symmetrically at the patellar, absent symmetrically at the Achilles. No clonus or Babinski are present.) Mental Status Examination: awake, alert, oriented to person, oriented to place, follows commands appropriately, answers questions appropriately, no agnosia, no aphasia, no aproxia Cranial nerve examination: PERRL, EOMI, visual moise intact, sensory to face intact, mastication intact, no facial asymmetry is present, no dysarthria, hearing is intact symmetrically, tongue protrudes midline Results - Laboratory Findings CBC and BMP: 01/26/18 00:41 01/26/18 00:41 Abnormal lab findings: Abnormal lab results MCV 81.3 fL (83.0-100.0) L 01/26/18 00:41 MCH 27.2 pg (28.0-33.3) L 01/26/18 00:41 VBG pO2 63 mmHg (25-50) H 01/25/18 08:07 Glucose 241 mg/dL (70-105) H 01/26/18 00:41 POC Glucose 172 mg/dL (58-89) H 01/25/18 20:12 Hemoglobin A1c 9.3 % (-5.6) H 01/25/18 07:45 Calcium 8.4 mg/dL (8.6-10.3) L 01/26/18 00:41 Triglycerides 180 mg/dL (< 150) H 01/26/18 00:41 VLDL Cholesterol, Calc 36 mg/dL (< 31) H 01/26/18 00:41 HDL Cholesterol 33 mg/dL (40-59) L 01/26/18 00:41 Cholesterol/HDL Ratio 5.1 (0-4.9) H 01/26/18 00:41 Urine Clarity Hazy (Clear) A 01/25/18 08:00 Ur Specific [place] > 1.030 (1.010-1.025) H 01/25/18 08:00 Urine Protein 30 mg/dL (Neg-Trace) H 01/25/18 08:00 Urine Glucose (UA) 500 mg/dL (Normal) H 01/25/18 08:00 Urine Ketones Trace mg/dL (Negative) H 01/25/18 08:00 Urine Blood Large (Negative) H 01/25/18 08:00 Ur Leukocyte Esterase Trace (Negative) H 01/25/18 08:00 Urine Microscopic WBC 5-15 per hpf (0-3) H 01/25/18 08:00 Ur Squamous Epith Cells Many per lpf (None-Few) H 01/25/18 08:00 Consult Discharge Plan - Plan Referrals: Ailyn Delatorre, PRISON TEACHER [Primary Care Provider] -
[2018-01-26] MEDS ORDERED: Aspirin Enteric Coated 81 MG Tablet PO SCH (09:00)
[2018-01-26] MEDS: amLODIPine 5 MG TABLET PO SCH (09:06)
[2018-01-26] MEDS: hydrALAZINE 25 MG TABLET PO SCH ×3 (09:06→21:01)
[2018-01-26] MEDS: Insulin LISPRO 300 UNITS/3 ML VIAL SQ SCH ×4 (09:06→21:07)
[2018-01-26] MEDS: Sucralfate 1 GM TABLET PO SCH ×2 (09:06→21:01)
[2018-01-26] MEDS: BuPROPion XL (24 HR) 150 MG TABLET PO SCH (09:06)
[2018-01-26] MEDS: Lisinopril 20 MG TABLET PO SCH ×2 (09:06→21:00)
[2018-01-26] MEDS: (Umeclidinium Bromide [Incruse Ellipta] 1 PUFF) IH SCH (09:07)
--- NOTE | 2018-01-26 16:21 | Internal Med Progress Note ---
Date of Encounter: 01/26/18 Time of Encounter: 16:17 - Assessment and plan (1) Brainstem infarct, acute Current Visit: Yes Status: Acute Assessment and plan: Neurology service saw the patient. She has suffered an acute infarct in the karen. Carotid duplex Dopplers report is pending Stroke protocol nursing orders Repeat echocardiogram Stop aspirin and switch to Plavix 75 mg daily (2) HLD (hyperlipidemia) Current Visit: Yes Status: Chronic Assessment and plan: lipid profile reviewed, elevated triglyerides; continue statin; Qualifiers: Hyperlipidemia type: unspecified Qualified Code(s): E78.5 - Hyperlipidemia , unspecified (3) Diabetes Current Visit: Yes Status: Chronic Assessment and plan: RBG is 239; HbA1C noted to be 9.3%; continue Accucheck blood glucose monitoring with SSI coverage; she reports her sugars have been running high at home and was started on new meds recently; diabetic diet Qualifiers: Diabetes mellitus type: type 2 Diabetes mellitus snf insulin use: without terminal make up operator use Diabetes mellitus complication status: with hyperglycemia Qualified Code(s): E11.65 - Type 2 diabetes mellitus with hyperglycemia (4) Asthma Current Visit: Yes Status: Chronic Assessment and plan: Mixed asthma/COPD, follows with Pulmonology as an outpatient; continue home meds - PRN Xopenex neb, Singulair, Symbicort and supplemental O2 PRN; Qualifiers: Asthma severity: mild Asthma persistence: intermittent Asthma complication type: uncomplicated Qualified Code(s): J45.20 - Mild intermittent asthma, uncomplicated (5) Pulmonary nodule, left Current Visit: Yes Status: Chronic Assessment and plan: stable, likely benign as per report (6) HTN (hypertension) Current Visit: Yes Status: Chronic Assessment and plan: difficult to control as an outpatient; follows with Cardiology and Nephrology; hold Cardizem and diuretics for now due to dizziness and bradycardia; continue Norvasc, Minoxidil, ACEI, Hydralazine, Cardura and Clonidine; use PRN IV Hydralazine for appropriate BP control, permissive hypertension allows with new stroke Qualifiers: Hypertension type: essential hypertension Qualified Code(s): I10 - Essential (primary) hypertension (7) Ataxia Current Visit: Yes Status: Acute Assessment and plan: New onset secondary to CVA; CT head showed no acute abnormality. MRI brain revealed pontine infarct and Carotid Doppler report is pending. EKG shows sinus bradycardia with repolarization abnormality in anterior leads, old changes. Echocardiogram from Aug 2017 shows preserved EF, mild to moderate concentric LVH , no atrial clots/fibrillation. PT evaluation completed and recommend rehab/PT; monitor vital signs closely and neuro checks DVT prophylaxis with s.c Heparin Repeated EKG with ST on monitor Repest echo pending Spoke with cardiology and will f/u if echo abnormal (8) GERD (gastroesophageal reflux disease) Current Visit: Yes Status: Chronic Assessment and plan: continue BID Prilosec; Qualifiers: Esophagitis presence: esophagitis presence not specified Qualified Code(s) : K21.9 - Gastro-esophageal reflux disease without esophagitis (9) CAD (coronary artery disease) Current Visit: Yes Status: Chronic Assessment and plan: C from Aug 2017 showed moderate CAD, no intervention; stopped asa per neuro and placed on plavix, continue statin Qualifiers: Coronary Disease-Associated Artery/Lesion type: [place] artery [place] vs. transplanted heart: [place] heart Associated angina: without angina Qualified Code(s): I25.10 - Atherosclerotic heart disease of [place] coronary artery without angina pectoris (10) Depression Current Visit: Yes Status: Chronic Assessment and plan: Stable, continue home meds; Qualifiers: Depression Type: unspecified Qualified Code(s): F32.9 - Major depressive disorder, single episode, unspecified (11) Tachycardia Current Visit: Yes Status: Acute Assessment and plan: obtained EKG which cardiology reviewed Echo pending Cardiology will f/u if abnormal - Time Spent With Patient Total time spent is greater than 50% in coordination of care (as documented) at patient's floor/unit and/or counseling patient: - Subjective Interval history: Patient is lying in bed, she is feeling a little better. Her is at the bedside. She spoke with social service and is planning on returning home with physical therapy instead of inpatient rehabilitation. She is aware that she had a stroke and was seen by Dr. Cantu this morning. She has no questions at this time. - Constitutional Vitals: Temp Pulse Resp BP Pulse Ox 97.7 F 111 15 167/72 97 01/26/18 15:37 01/26/18 15:37 01/26/18 15:37 01/26/18 15:37 01/26/18 15:37 General appearance: Present: A&O X 3, answers questions appropriately - Head Head exam: Present: atraumatic, normocephalic - Eye Eye exam: Present: PERRL, conjuntiva pink, sclera anicteric. Absent: nystagmus Pupils: Present: PERRL - Neck Neck exam general surgery: Present: supple, trachea midline. Absent: lymphadenopathy - Respiratory Respiratory exam: Present: CTAB. Absent: accessory muscle use, rales, rhonchi, wheezes - Cardiovascular Cardiovascular exam: Present: RRR, +S1, +S2, tachycardia. Absent: diastolic murmur, gallop, rubs, systolic murmur - GI/Abdominal GI/Abdominal exam: Present: normal bowel sounds, soft, no peritoneal signs. Absent: distended, tenderness - Extremities Exam Extremities exam: Present: full ROM, warm, radial pulses palpable and symmetrical. Absent: calf tenderness, cyanotic, pedal edema - Neurological Exam Neurological exam: Present: alert, CN II-XII intact, oriented X3, no focal deficits, strengths equal and symetr throughout. Absent: pronater drift, facial droop, speech deficit - Skin Skin exam: Present: dry, intact, normal color, warm Internal Medicine: Result - Labs CBC & Chem 7: 01/26/18 00:41 01/26/18 00:41 Labs: Short CBC 01/26/18 Range/Units 00:41 WBC 8.7 (4.3-11.1) K/mcL Hgb 12.8 (11.5-15.4) g/dL Hct 38.2 (35.3-44.9) % Plt Count 199 (140-400) K/mcL Neutrophils # 5.4 (1.6-8.9) K/mcL BMP 01/26/18 00:41 Sodium 138 Potassium 3.6 Chloride 107 Carbon Dioxide 24 BUN 17 Creatinine 0.71 Glucose 241 H Calcium 8.4 L Cardiac Enzymes 01/26/18 Range/Units 00:41 Troponin I < 0.03 (< 0.04) ng/mL Consult Discharge Plan - Plan Referrals: Ailyn Delatorre CNP [Primary Care Provider] -
[2018-01-26] MEDS: dilTIAZem HCl 60 MG TABLET PO SCH (18:25)
[2018-01-26] MEDS: Gabapentin 300 MG CAPSULE PO SCH (21:00)
[2018-01-26] MEDS: cloNIDine HCl 0.1 MG TABLET PO SCH (21:00)
[2018-01-26] MEDS ORDERED: Levalbuterol Neb 1.25 MG/3 ML IH PRN (21:47)
[2018-01-27 05:00] LABS: Basophils # 0.1 K/mcL (0.0-0.2); Basophils % 0.6 %; Eosinophils # 0.3 K/mcL (0.0-0.6); Hematocrit 36.9 % (35.3-44.9); Hemoglobin 12.1 g/dL (11.5-15.4); Immature Granulocytes % 0.8 % (0-4); Lymphocytes # 1.8 K/mcL (0.6-4.6); Lymphocytes % 18.7 %; Mean Corpuscular HGB Conc 32.8 g/dL (31.6-35.5); Mean Corpuscular Hemoglobin 26.7 pg (28.0-33.3); Mean Corpuscular Volume 81.5 fL (83.0-100.0); Mean Platelet Volume 9.5 fL (9.4-12.4); Monocytes # 0.7 K/mcL (0.0-1.3); Monocytes % 7.6 %; Neutrophils # 6.7 K/mcL (1.6-8.9); Nucleated Red Blood Cells 0.3 /100 WBC (0); Platelet Count 206 K/mcL (140-400); Red Blood Count 4.53 M/mcL (3.82-4.97); Red Cell Distribution Width 12.8 % (11.5-14.5); Segmented Neutrophils % 69.3 %
[2018-01-27 05:08] LABS: BUN/Creatinine Ratio 18 (6-26); Blood Urea Nitrogen 17 mg/dL (6-20); Carbon Dioxide 25 mEq/L (23-29); Chloride 107 mEq/L (98-107); Glucose 219 mg/dL (70-105); Osmolality,Calculated 296 (280-300); Potassium 3.5 mEq/L (3.5-5.1); Sodium 139 mEq/L (136-145); eGFR For African Americans > 60 (> 60); eGFR For Non-African Americans > 60 (> 60)
[2018-01-27] MEDS: *HR* Heparin 5,000 UNIT/ML VIAL SQ SCH (06:05)
[2018-01-27 07:03] VITALS: BP 90/47
[2018-01-27] MEDS: Budesonide/Formoterol 160/4.5 MDI IH SCH (08:09)
[2018-01-27] MEDS: Sucralfate 1 GM TABLET PO SCH (09:01)
[2018-01-27] MEDS: BuPROPion XL (24 HR) 150 MG TABLET PO SCH (09:01)
[2018-01-27] MEDS: dilTIAZem HCl 60 MG TABLET PO SCH (09:01)
[2018-01-27] MEDS: (Umeclidinium Bromide [Incruse Ellipta] 1 PUFF) IH SCH (09:02)
[2018-01-27] MEDS: Insulin LISPRO 300 UNITS/3 ML VIAL SQ SCH (09:02)
[2018-01-27] MEDS: hydrALAZINE 25 MG TABLET PO SCH (09:02)
[2018-01-27] MEDS: amLODIPine 5 MG TABLET PO SCH (09:02)
[2018-01-27] MEDS: Lisinopril 20 MG TABLET PO SCH (09:02)
--- NOTE | 2018-01-27 09:54 | Neurology Progress Note ---
Date of Encounter: 01/27/18 Time of Encounter: 09:52 Assessment and Plan (1) Brainstem infarct, acute Current Visit: Yes Status: Acute Patient has suffered an acute pontine infarct. Certainly her stroke risk factors which include hypertension and diabetes mellitus are to blame. I feel that over time she will make a full recovery. However stroke risk factor management is paramount. Maintain Plavix. As well as PT and OT feel that she is not a fall risk she can be discharged home. Perhaps with a cane to stabilize her gait and some observation while home by her daughter. I will reevaluate her at your request. Maintain statin therapy. Subjective Interval history: Chart was reviewed, patient was seen and examined. She feels that her balance is improving. She is not back to baseline however. She was started on Plavix yesterday and is tolerating it without difficulty. Carotid Doppler study reveals nonstenotic plaquing. Her blood pressure has actually been on the low side. Strict management of her stroke risk factors is paramount. She is anxious to be discharged. She had an echocardiogram completed in August 2017 which was normal. I do not feel it necessary to repeat this. Objective - Constitutional Vitals: Temp Pulse Resp BP Pulse Ox 98.0 F 62 16 90/47 98 01/27/18 08:30 01/27/18 08:30 01/27/18 08:30 01/27/18 08:30 01/27/18 08:10 - Neurological Exam Motor examination - right side: 5/5: deltoids, biceps, triceps, heating element repairer, hip flexors, tibialis Anterior, quadriceps, toe extension (EHL), plantarflexion Motor examination - left side: 4/5: deltoids, biceps, triceps, hip flexors, heating element repairer , quadriceps, tibialis Anterior, toe extension (EHL), plantarflexion Sensation intact: Present: other (Pinprick is decreased in a distal to proximal gradient.) Reflex and gait examination: ataxic gate (Deep tendon reflexes are 2 symmetrically of the biceps triceps and brachial radialis, 1 symmetrically at the patellar, absent symmetrically at the Achilles. No clonus or Babinski are present.) Mental Status Examination: Present: awake, alert, oriented to person, oriented to place, follows commands appropriately, answers questions appropriately, no agnosia, no aphasia, no aproxia Cranial nerve examination: Present: PERRL, EOMI, visual moise intact, sensory to face intact, mastication intact, no facial asymmetry is present, no dysarthria, hearing is intact symmetrically, tongue protrudes midline Cerebellar examination: Absent: no gait ataxia (Patient not quite back to her baseline. He needed a cane to stabilize her gait.) Results - Laboratory Findings CBC and BMP: 01/27/18 04:30 04 04:30 Abnormal lab findings: Abnormal lab results MCV 81.5 fL (83.0-100.0) L 01/27/18 04:30 MCH 26.7 pg (28.0-33.3) L 01/27/18 04:30 Nucleated RBCs/100 WBC 0.3 /100 WBC (0) H 01/27/18 04:30 VBG pO2 63 mmHg (25-50) H 01/25/18 08:07 Glucose 219 mg/dL (70-105) H 01/27/18 04:30 POC Glucose 194 mg/dL (70-99) H 01/26/18 20:51 Hemoglobin A1c 9.3 % (-5.6) H 01/25/18 07:45 Triglycerides 180 mg/dL (< 150) H 01/26/18 00:41 VLDL Cholesterol, Calc 36 mg/dL (< 31) H 01/26/18 00:41 HDL Cholesterol 33 mg/dL (40-59) L 01/26/18 00:41 Cholesterol/HDL Ratio 5.1 (0-4.9) H 01/26/18 00:41 Urine Clarity Hazy (Clear) A 01/25/18 08:00 Ur Specific Dora > 1.030 (1.010-1.025) H 01/25/18 08:00 Urine Protein 30 mg/dL (Neg-Trace) H 01/25/18 08:00 Urine Glucose (UA) 500 mg/dL (Normal) H 01/25/18 08:00 Urine Ketones Trace mg/dL (Negative) H 01/25/18 08:00 Urine Blood Large (Negative) H 01/25/18 08:00 Ur Leukocyte Esterase Trace (Negative) H 01/25/18 08:00 Urine Microscopic WBC 5-15 per hpf (0-3) H 01/25/18 08:00 Ur Squamous Epith Cells Many per lpf (None-Few) H 01/25/18 08:00 Consult Discharge Plan - Plan Referrals: Ailyn Delatorre, BREAKER UP MACHINE OPERATOR [Primary Care Provider] -
--- NOTE | 2018-01-27 10:44 | Discharge Summary ---
- NOTES TO OUTPATIENT PROVIDER Notes to Outpatient Provider: Follow-up with neurology in one month. Follow-up with primary care physician within 5-7 days. She will be discharged on a statin and Plavix with [facility] for PT OT. Date of Encounter: 01/27/18 Time of Encounter: 10:42 - Discharge Diagnosis (1) Brainstem infarct, acute Priority: Primary Status: Acute (2) HLD (hyperlipidemia) Priority: Primary Status: Chronic Qualifiers: Hyperlipidemia type: unspecified Qualified Code(s): E78.5 - Hyperlipidemia , unspecified (3) Diabetes Priority: Primary Status: Chronic Qualifiers: Diabetes mellitus type: type 2 Diabetes mellitus longterm insulin use: without longterm use Diabetes mellitus complication status: with hyperglycemia Qualified Code(s): E11.65 - Type 2 diabetes mellitus with hyperglycemia (4) Asthma Priority: Primary Status: Chronic Qualifiers: Asthma severity: mild Asthma persistence: intermittent Asthma complication type: uncomplicated Qualified Code(s): J45.20 - Mild intermittent asthma, uncomplicated (5) Pulmonary nodule, left Priority: Primary Status: Chronic (6) HTN (hypertension) Priority: Primary Status: Chronic Qualifiers: Hypertension type: essential hypertension Qualified Code(s): I10 - Essential (primary) hypertension (7) Ataxia Priority: Primary Status: Acute (8) GERD (gastroesophageal reflux disease) Priority: Primary Status: Chronic Qualifiers: Esophagitis presence: esophagitis presence not specified Qualified Code(s) : K21.9 - Gastro-esophageal reflux disease without esophagitis (9) CAD (coronary artery disease) Priority: Primary Status: Chronic Qualifiers: Coronary Disease-Associated Artery/Lesion type: [place] artery [place] vs. transplanted heart: [place] heart Associated angina: without angina Qualified Code(s): I25.10 - Atherosclerotic heart disease of [place] coronary artery without angina pectoris (10) Depression Priority: Primary Status: Chronic Qualifiers: Depression Type: unspecified Qualified Code(s): F32.9 - Major depressive disorder, single episode, unspecified (11) Tachycardia Priority: Primary Status: Resolved Hospital course: Ms. Banda is a 52 year old female with history of uncontrolled hypertension and diabetes who presented to the hospital for evaluation of weakness and gait instability. She stated she had been sick for 2 days with nausea vomiting general weakness and malaise. She had left-sided deviation and preference to gain along with some nausea. She also had a mild to moderate headache in intensity that was diffuse over the last 2 days but denied any visual changes paresthesia focal weakness slurred speech or facial droop as well as no chest pain dysphagia or dyspnea. A stroke workup was completed which revealed an acute pontine infarct. Neurology was consult it and we thank you further input. PT OT felt she could go home with home PT OT. [facility] was consult dated. She will also be on a statin as well as Plavix. Her aspirin will be held. Echocardiogram carotid Dopplers CT and MRI were all reviewed. Her balance is improving and she is back to baseline. She is tolerating the Plavix that was started yesterday. The carotid Dopplers revealed some nonstenotic plaquing. Her blood pressure has been a little on the low side. Discussed her findings and follow up with cresencio Castro in one month. She or her daughter had no questions. Discharge discussed with: patient, family, nurse, social work, case management - Time Spent with Patient Total time spent providing and/or coordinating discharge services: Less than 30 minutes - Discharge Medications Prescriptions: Atorvastatin [Lipitor] 80 mg PO HS #30 tablet Clopidogrel [Plavix] 75 mg PO DAILY #30 tablet Home Medications: Gabapentin [Neurontin] 300 mg PO HS 01/31/16 [History] SitaGLIPtin [Januvia] 100 mg PO DAILY 01/31/16 [History] Budesonide/Formoterol 160/4.5 [Symbicort 160/4.5] 2 puff IH BIDR 04/07/16 [ History] Sucralfate [Carafate] 1 gm PO BID 04/07/16 [History] Montelukast [Singulair] 10 mg PO HS 09/02/17 [History] Pantoprazole Sodium [Protonix] 40 mg PO BID 09/02/17 [History] Chlorthalidone 25 mg PO DAILY #30 tablet 09/07/17 [Rx] Diltiazem CD (24hr) [Cardizem CD] 180 mg PO DAILY #30 cap.er.24h 09/07/17 [Rx] Doxazosin [Cardura] 4 mg PO HS #30 tablet 09/07/17 [Rx] Hydralazine HCl 50 mg PO TID #90 tablet 09/07/17 [Rx] Lactobacillus [Culturelle] 2 each PO DAILY #60 cap.sprink 09/07/17 [Rx] Levalbuterol Neb [Xopenex Neb] 1.25 mg IH [id number] #180 vial.neb 09/07/17 [Rx] Lisinopril [Zestril] 40 mg PO BID #60 tablet 09/07/17 [Rx] Loperamide [Imodium] 2 mg PO Q4HR PRN #42 capsule 09/07/17 [Rx] Minoxidil 2.5 mg PO BID #60 tablet 09/07/17 [Rx] Spironolactone [Aldactone] 100 mg PO DAILY #30 tablet 09/07/17 [Rx] amLODIPine [Norvasc] 10 mg PO DAILY #60 tablet 09/07/17 [Rx] cloNIDine HCl [Clonidine HCl] 0.3 mg PO HS #30 tablet 09/07/17 [Rx] Acetaminophen [Tylenol] 650 mg PO Q4HR PRN tablet 10/07/17 [Rx] Albuterol Sulfate [Albuterol Inhaler] 2 puff IH Q4H PRN 10/07/17 [History] Cetirizine HCl [Zyrtec] 10 mg PO DAILY #30 tablet 12/19/17 [Rx] Amitriptyline [Elavil] 10 - 20 mg PO HS 01/25/18 [History] Bupropion HCl [Wellbutrin Xl] 300 mg PO DAILY 01/25/18 [History] Escitalopram [Lexapro] 20 mg PO DAILY 01/25/18 [History] Glimepiride [Amaryl] 4 mg PO BID 01/25/18 [History] Metformin HCl [Glucophage] 1,000 mg PO BID 01/25/18 [History] Ranitidine HCl [Acid Manufacturing Engineer Paint] 150 mg PO BID 01/25/18 [History] Umeclidinium [place] [Incruse Ellipta] 1 puff IH DAILY 01/25/18 [History] Atorvastatin [Lipitor] 80 mg PO HS #30 tablet 01/27/18 [Rx] Clopidogrel [Plavix] 75 mg PO DAILY #30 tablet 01/27/18 [Rx] Allergies/Adverse Reactions: 3 Allergy/AdvReac Type Severity Reaction Status Date / Time Beta-Blockers Allergy Difficulty Verified 08/24/17 08:52 (Beta-Adrenergic Bloc Breathing Date of admission: 01/25/18 18:58 Primary care physician: Ailyn Delatorre CNP Consults: 01/26/18 09:00 Consult to Waxing Machine Operator [CONS] Routine Reason for Consult: CVA. Patient will need inpatient swing bed rehab. Discharging clinician: Yessy Godwin Anticipated date of discharge: 01/27/18 - Constitutional Vitals: Temp Pulse Resp BP Pulse Ox 98.0 F 62 16 90/47 98 01/27/18 08:30 01/27/18 08:30 01/27/18 08:30 01/27/18 08:30 01/27/18 08:10 General appearance: Present: cooperative, A&O X 3, pleasant, no acute distress, answers questions appropriately - Head Head exam: Present: atraumatic, normocephalic - Eye Eye exam: Present: normal appearance, PERRL, conjuntiva pink, sclera anicteric. Absent: nystagmus Pupils: Present: PERRL - Neck Neck exam general surgery: Present: full ROM, supple, trachea midline. Absent: lymphadenopathy, nuchal rigidity - Respiratory Respiratory exam: Present: CTAB. Absent: accessory muscle use, rales, rhonchi, wheezes - Cardiovascular Cardiovascular exam: Present: RRR, +S1, +S2. Absent: diastolic murmur, gallop, rubs, systolic murmur, tachycardia - GI/Abdominal GI/Abdominal exam: Present: normal bowel sounds, soft, no peritoneal signs. Absent: distended, tenderness - Extremities Exam Extremities exam: Present: warm, radial pulses palpable and symmetrical. Absent : calf tenderness, cyanotic, pedal edema - Neurological Exam Neurological exam: Present: alert, CN II-XII intact, oriented X3, no focal deficits, strengths equal and symetr throughout. Absent: pronater drift, facial droop, speech deficit - Skin Skin exam: Present: dry, intact, normal color, warm - Patient Status Disposition: Home Health Service Condition: Fair Functional capacity at discharge: uses cane/walker Overall status at discharge: patient is progressing back to baseline - Discharge Instructions Instructions: Atorvastatin (By mouth), Clopidogrel (By mouth), Diabetes Mellitus Type 2 in Adults (DC), Chronic Hypertension (DC), Hyperlipidemia (DC) Follow Up With: Ailyn Delatorre CNP [Primary Care Provider] - 02/01/18 10:30 am Terrance Cantu DO [Partnered Physician] - 02/24/18 2:45 pm - Diet and Activity Activity: as per physical therapy Diet: advance to your usual diet, diabetic diet, low fat, low cholesterol, low salt diet
--- NOTE | 2018-01-27 10:54 | Physician Discharge Referral ---
Home Health/Hosp Referral Info Attending Provider: stanton vaz - Diagnosis (1) Brainstem infarct, acute Priority: Primary Status: Acute (2) HLD (hyperlipidemia) Priority: Primary Status: Chronic (3) Diabetes Priority: Primary Status: Chronic (4) Asthma Priority: Primary Status: Chronic (5) Pulmonary nodule, left Priority: Primary Status: Chronic (6) HTN (hypertension) Priority: Primary Status: Chronic (7) Ataxia Priority: Primary Status: Acute (8) GERD (gastroesophageal reflux disease) Priority: Primary Status: Chronic (9) CAD (coronary artery disease) Priority: Primary Status: Chronic (10) Depression Priority: Primary Status: Chronic (11) Tachycardia Priority: Primary Status: Resolved - Respiratory Orders None Smoking Cessation: Smoking cessation has been advised. For more information, call the [employer] Tobacco Quit Line at 3-390-HXAS-NOW. - Diet/Nutrition Diet/Nutrition Orders: No Added Salt (MATT), No Concentrated Sweets Diet/Nutrition: List: diabetic diet and education - Activity Activity Orders: Ambulate Activity: List: will likely need a cane, defer to PT - Services Needed Following services are medically necessary services: Nursing, Physical Therapy, Occupational Therapy - Transfer Medications Prescriptions: Atorvastatin [Lipitor] 80 mg PO HS #30 tablet Clopidogrel [Plavix] 75 mg PO DAILY #30 tablet Home Medications: Gabapentin [Neurontin] 300 mg PO HS 01/31/16 [History] SitaGLIPtin [Januvia] 100 mg PO DAILY 01/31/16 [History] Budesonide/Formoterol 160/4.5 [Symbicort 160/4.5] 2 puff IH BIDR 04/07/16 [ History] Sucralfate [Carafate] 1 gm PO BID 04/07/16 [History] Montelukast [Singulair] 10 mg PO HS 09/02/17 [History] Pantoprazole Sodium [Protonix] 40 mg PO BID 09/02/17 [History] Chlorthalidone 25 mg PO DAILY #30 tablet 09/07/17 [Rx] Diltiazem CD (24hr) [Cardizem CD] 180 mg PO DAILY #30 cap.er.24h 09/07/17 [Rx] Doxazosin [Cardura] 4 mg PO HS #30 tablet 09/07/17 [Rx] Hydralazine HCl 50 mg PO TID #90 tablet 09/07/17 [Rx] Lactobacillus [Culturelle] 2 each PO DAILY #60 cap.sprink 09/07/17 [Rx] Levalbuterol Neb [Xopenex Neb] 1.25 mg IH [id number] #180 vial.neb 09/07/17 [Rx] Lisinopril [Zestril] 40 mg PO BID #60 tablet 09/07/17 [Rx] Loperamide [Imodium] 2 mg PO Q4HR PRN #42 capsule 09/07/17 [Rx] Minoxidil 2.5 mg PO BID #60 tablet 09/07/17 [Rx] Spironolactone [Aldactone] 100 mg PO DAILY #30 tablet 09/07/17 [Rx] amLODIPine [Norvasc] 10 mg PO DAILY #60 tablet 09/07/17 [Rx] cloNIDine HCl [Clonidine HCl] 0.3 mg PO HS #30 tablet 09/07/17 [Rx] Acetaminophen [Tylenol] 650 mg PO Q4HR PRN tablet 10/07/17 [Rx] Albuterol Sulfate [Albuterol Inhaler] 2 puff IH Q4H PRN 10/07/17 [History] Cetirizine HCl [Zyrtec] 10 mg PO DAILY #30 tablet 12/19/17 [Rx] Amitriptyline [Elavil] 10 - 20 mg PO HS 01/25/18 [History] Bupropion HCl [Wellbutrin Xl] 300 mg PO DAILY 01/25/18 [History] Escitalopram [Lexapro] 20 mg PO DAILY 01/25/18 [History] Glimepiride [Amaryl] 4 mg PO BID 01/25/18 [History] Metformin HCl [Glucophage] 1,000 mg PO BID 01/25/18 [History] Ranitidine HCl [Acid Secondary Market Manager] 150 mg PO BID 01/25/18 [History] Umeclidinium [place] [Incruse Ellipta] 1 puff IH DAILY 01/25/18 [History] Atorvastatin [Lipitor] 80 mg PO HS #30 tablet 01/27/18 [Rx] Clopidogrel [Plavix] 75 mg PO DAILY #30 tablet 01/27/18 [Rx] Allergies/Adverse Reactions: 3 Allergy/AdvReac Type Severity Reaction Status Date / Time Beta-Blockers Allergy Difficulty Verified 08/24/17 08:52 (Beta-Adrenergic Bloc Breathing Certification: Further, I certify that my clinical findings support that this patient is homebound (i.e. absences from home require considerable and taxing effort and are for medical reasons or nondenominational services or infrequently or short duration when for other reasons) because: Homebound Reason: Patient requires assistance of a person or device to safely leave home, Leaving home requires considerable and taxing effort due to condition Attestation: My signature below is to certify that this patient is under my care and that I, or nurse practitioner, or a physician's creative assistant working with me, has a face-to -face encounter with this patient.
--- NOTE | 2018-01-29 13:43 | Electrocardiograph Report ---
[place] [id number] Test Date: 2018-01-26 Pat Name: Praveena Banda Department: 113 Room: 3B43 Gender: F Advanced Manufacturing Consultant: : [id number] Requested By: Yessy Godwin Order Number: [id number] Reading MD: Laxmi Cyr Measurements Intervals [place] Rate: 118 P: AL: 0 QRS: 37 QRSD: 81 T: 38 QT: 326 QTc: 396 Interpretive Statements SINUS TACHYCARDIA Electronically Signed On 01-29-2018 13:41:50 EDT by Laxmi Cyr
== END 2018-01-27 11:30 | disposition home health service (06) | DRG 45 ==
LOC: 3BNU 07:20 → EMEROO 07:20 → 3BNU 10:59
PROVIDERS: ADMIT Internal Medicine; ATTEND Registered Nurse

== ENCOUNTER 2020-01-17 01:26 | Inpatient (IN) ==
[2020-01-17] MEDS ORDERED: 0.9 % Sodium Chloride 1,000 ML IVC ONE (01:36)
[2020-01-17 01:59] LABS: Bilirubin,Urine Negative (Negative); Blood,Urine Negative (Negative); Clarity,Urine Clear (Clear); Color,Urine Yellow (Yellow); Glucose,Urine (UA) >=1000 mg/dL (Normal); Ketones,Urine Trace mg/dL (Negative); Leukocyte Esterase,Urine Negative (Negative); Nitrite,Urine Negative (Negative); PH,Urine 7.5 pH Units (5.0-8.0); Protein,Urine 100 mg/dL (Neg-Trace); Specific Gravity,Urine 1.018 (1.010-1.025); Urobilinogen,Urine Normal (Normal)
[2020-01-17 02:00] LABS: Bacteria,Urine None Seen per hpf (None-Few); Hyaline Casts,Urine None Seen per lpf (None-Few); RBC,Urine 0-3 per hpf (0-3); Squamous Epithelial Cell,Urine Many per lpf (None-Few); WBC,Urine 0-3 per hpf (0-3)
[2020-01-17 02:03] LABS: Basophils # 0.1 K/mcL (0.0-0.2); Basophils % 0.5 %; Eosinophils # 0.1 K/mcL (0.0-0.6); Eosinophils % 0.5 %; Hematocrit 43.7 % (35.3-44.9); Hemoglobin 14.3 g/dL (11.5-15.4); Immature Granulocytes % 1.4 % (0-4); Lymphocytes # 1.5 K/mcL (0.6-4.6); Lymphocytes % 8.1 %; Mean Corpuscular HGB Conc 32.7 g/dL (31.6-35.5); Mean Corpuscular Hemoglobin 27.8 pg (28.0-33.3); Mean Platelet Volume 9.2 fL (9.4-12.4); Monocytes # 0.6 K/mcL (0.0-1.3); Platelet Count 248 K/mcL (140-400); Red Blood Count 5.14 M/mcL (3.82-4.97); Red Cell Distribution Width 12.3 % (11.5-14.5); Segmented Neutrophils % 86.5 %; White Blood Count 18.5 K/mcL (4.3-11.1)
[2020-01-17 02:04] LABS: Prothrombin Time 11.4 Seconds (9.4-12.1)
[2020-01-17 02:06] LABS: Activated Partial Thrombo Time 29.3 Seconds (26.0-36.0)
[2020-01-17 02:12] LABS: Amphetamine Screen,Urine Negative ng/mL (Cutoff=1000); Barbiturate Screen,Urine Negative ng/mL (Cutoff=200); Benzodiazepines Screen,Urine Negative ng/mL (Cutoff=200); Cannabinoid Screen,Urine Negative ng/mL (Cutoff = 50); Cocaine Screen,Urine Negative ng/mL (Cutoff= 300); Opiate Screen,Urine Negative ng/mL (Cutoff=300); Phencyclidine Screen,Urine Negative ng/mL (Cutoff=25)
[2020-01-17 02:28] LABS: Alanine Aminotransferase 31 Units/L (7-52); Albumin 4.9 g/dL (3.5-5.7); Albumin/Globulin Ratio 1.7 (1.1-2.2); Alkaline Phosphatase 94 Units/L (34-104); Aspartate Amino Transferase 20 Units/L (13-39); BUN/Creatinine Ratio 17 (6-26); Bilirubin,Direct 0.1 mg/dL (0.0-0.2); Bilirubin,Indirect 0.5 mg/dL (0.0-1.0); Bilirubin,Total 0.6 mg/dL (0.3-1.0); Blood Urea Nitrogen 10 mg/dL (6-20); Calcium 9.6 mg/dL (8.6-10.3); Carbon Dioxide 23 mEq/L (23-29); Chloride 99 mEq/L (98-107); Creatine Kinase 87 Units/L (30-223); Ethanol < 10 mg/dL (Less than 10); Globulin 2.9 g/dL (2.4-3.5); Glucose 249 mg/dL (70-105); Osmolality,Calculated 287 (280-300); Potassium 3.6 mEq/L (3.5-5.1); Sodium 135 mEq/L (136-145); Total Protein 7.8 g/dL (6.4-8.9); Troponin I < 0.03 ng/mL (< 0.04); eGFR For African Americans > 60 (> 60); eGFR For Non-African Americans > 60 (> 60)
[2020-01-17] MEDS ORDERED: Furosemide 40 MG/4 ML VIAL IVP ONE (02:41)
[2020-01-17 03:35] LABS: Creatinine,Urine 28 mg/dL; Microalbum/Creatinine Ratio,Ur 2371 mcg/mg (Less than 30); Microalbumin,Urine 664 mg/L
[2020-01-17] MEDS ORDERED: Isovue-370 500 ML BOTTLE IVP ONE ×2 (04:36→13:23)
[2020-01-17] MEDS ORDERED: Naloxone 0.4 MG/ML INJ IVP PRN (04:51)
[2020-01-17] MEDS ORDERED: *HR* Labetalol 20 MG/4 ML SYRINGE IVP PRN (05:22)
[2020-01-17] MEDS ORDERED: Famotidine 20 MG/2 ML VIAL IVP SCH (05:23)
[2020-01-17] MEDS ORDERED: Dextrose Gel 15 GM/37.5 ML TUBE PO PRN ×2 (05:23)
[2020-01-17] MEDS ORDERED: Albuterol 2.5 MG/3 ML NEBULIZER IH PRN (05:23)
[2020-01-17] MEDS ORDERED: D5% in Water 1,000 ML IVC PRN (05:23)
[2020-01-17] MEDS ORDERED: *HR* Dextrose 50 % in Water (Syg) 50 ML SYRINGE IVP PRN (05:23)
[2020-01-17] MEDS: *HR* Heparin 5,000 UNIT/ML VIAL SQ SCH ×2 (05:55→17:28)
[2020-01-17] MEDS: *HR* Promethazine 25 MG/ML VIAL IVP PRN (05:55)
[2020-01-17] MEDS: Insulin LISPRO 300 UNITS/3 ML VIAL SQ SCH ×5 (05:56→20:43)
[2020-01-17] MEDS ORDERED: Cefepime HCl 2,000 MG in Water for inj. (sterile) 20 ML IVP ONE (06:28)
[2020-01-17 06:32] LABS: C-Reactive Protein < 5 mg/L (Less than 10); Lipase 11 Units/L (11-82); Phosphorous 3.7 mg/dL (2.7-4.5); Troponin I < 0.03 ng/mL (< 0.04)
[2020-01-17] MEDS ORDERED: MetroNIDAZOLE 500 MG/100 ML 500 MG/100 ML BAG IVPB ONE (06:33)
[2020-01-17] MEDS: 0.9 % Sodium Chloride 1,000 ML IV SCH ×2 (06:37→07:56)
[2020-01-17 06:48] LABS: Magnesium 1.2 mg/dL (1.6-2.6)
[2020-01-17] MEDS ORDERED: Vancomycin (wt based) 1,000 MG VIAL IVPB SCH (07:00)
[2020-01-17] MEDS ORDERED: *HR* Promethazine 25 MG/ML VIAL IVP PRN (07:15)
[2020-01-17] MEDS ORDERED: Ringers Solution, Lactated 1,000 ML IVC SCH (07:45)
[2020-01-17] MEDS: Piperacillin/Tazobactam 3.375 GM in 0.9 % Sodium Chloride Mini Bag 100 ML IVPB SCH ×3 (08:07→23:46)
[2020-01-17] MEDS ORDERED: Aminoglycoside Consult 1 EACH MC ONE (14:14)
[2020-01-17] MEDS: *HR* Labetalol 20 MG/4 ML SYRINGE IVP PRN (16:22)
[2020-01-17] MEDS: Sucralfate 1 GM TABLET PO SCH (20:05)
[2020-01-17] MEDS: cloNIDine HCL 0.1 MG TABLET PO SCH (20:05)
[2020-01-17] MEDS: Acetaminophen 325 MG TABLET PO PRN (20:05)
[2020-01-17] MEDS: Famotidine 20 MG TABLET PO SCH (20:05)
[2020-01-17] MEDS ORDERED: cloNIDine HCL 0.1 MG TABLET PO SCH (21:00)
[2020-01-18] MEDS: Insulin LISPRO 300 UNITS/3 ML VIAL SQ SCH ×6 (00:23→21:46)
[2020-01-18 02:43] LABS: Basophils # 0.1 K/mcL (0.0-0.2); Basophils % 0.4 %; Eosinophils # 0.1 K/mcL (0.0-0.6); Eosinophils % 0.4 %; Hematocrit 40.1 % (35.3-44.9); Lymphocytes # 2.4 K/mcL (0.6-4.6); Lymphocytes % 13.9 %; Mean Corpuscular HGB Conc 32.4 g/dL (31.6-35.5); Mean Corpuscular Hemoglobin 27.6 pg (28.0-33.3); Mean Corpuscular Volume 85.1 fL (83.0-100.0); Mean Platelet Volume 9.3 fL (9.4-12.4); Monocytes # 1.2 K/mcL (0.0-1.3); Monocytes % 6.7 %; Neutrophils # 13.5 K/mcL (1.6-8.9); Platelet Count 244 K/mcL (140-400); Red Blood Count 4.71 M/mcL (3.82-4.97); Red Cell Distribution Width 12.7 % (11.5-14.5); Segmented Neutrophils % 77.6 %; White Blood Count 17.4 K/mcL (4.3-11.1)
[2020-01-18 03:05] LABS: Alanine Aminotransferase 20 Units/L (7-52); Albumin 3.9 g/dL (3.5-5.7); Albumin/Globulin Ratio 1.7 (1.1-2.2); Alkaline Phosphatase 72 Units/L (34-104); Aspartate Amino Transferase 14 Units/L (13-39); BUN/Creatinine Ratio 23 (6-26); Bilirubin,Direct 0.1 mg/dL (0.0-0.2); Bilirubin,Indirect 0.5 mg/dL (0.0-1.0); Bilirubin,Total 0.6 mg/dL (0.3-1.0); Blood Urea Nitrogen 17 mg/dL (6-20); Calcium 9.1 mg/dL (8.6-10.3); Carbon Dioxide 24 mEq/L (23-29); Chloride 105 mEq/L (98-107); Globulin 2.3 g/dL (2.4-3.5); Glucose 156 mg/dL (70-105); Magnesium 2.3 mg/dL (1.6-2.6); Osmolality,Calculated 289 (280-300); Potassium 3.3 mEq/L (3.5-5.1); Sodium 137 mEq/L (136-145); Total Protein 6.2 g/dL (6.4-8.9); eGFR For African Americans > 60 (> 60); eGFR For Non-African Americans > 60 (> 60)
[2020-01-18 03:15] LABS: Thyroid Stimulating Hormone 0.329 mcIU/mL (0.340-5.600)
[2020-01-18] MEDS: *HR* Heparin 5,000 UNIT/ML VIAL SQ SCH ×2 (06:15→17:52)
[2020-01-18 08:18] LABS: Estimated Average Glucose 166 mg/dl
[2020-01-18] MEDS: ARIPiprazole 2 MG TABLET PO SCH ×2 (08:44→14:43)
[2020-01-18] MEDS: Sucralfate 1 GM TABLET PO SCH (08:44)
[2020-01-18] MEDS: cloNIDine HCL 0.1 MG TABLET PO SCH ×3 (08:44→21:45)
[2020-01-18] MEDS: Famotidine 20 MG TABLET PO SCH ×2 (08:44→21:43)
[2020-01-18] MEDS: BuPROPion XL (24 HR) 150 MG TABLET PO SCH ×2 (08:45→14:43)
[2020-01-18] MEDS: Piperacillin/Tazobactam 3.375 GM in 0.9 % Sodium Chloride Mini Bag 100 ML IVPB SCH ×3 (09:24→23:58)
[2020-01-18] MEDS: *HR* Labetalol 20 MG/4 ML SYRINGE IVP PRN (11:15)
[2020-01-18] MEDS: Acetaminophen 325 MG TABLET PO PRN (16:01)
[2020-01-18] MEDS: *HR* Promethazine 25 MG/ML VIAL IVP PRN (17:53)
[2020-01-19] MEDS: Insulin LISPRO 300 UNITS/3 ML VIAL SQ SCH ×6 (00:58→21:54)
[2020-01-19 01:39] LABS: Basophils # 0.1 K/mcL (0.0-0.2); Basophils % 0.6 %; Eosinophils # 0.1 K/mcL (0.0-0.6); Eosinophils % 0.8 %; Hematocrit 39.9 % (35.3-44.9); Hemoglobin 12.7 g/dL (11.5-15.4); Immature Granulocytes % 0.5 % (0-4); Lymphocytes # 1.7 K/mcL (0.6-4.6); Lymphocytes % 11.8 %; Mean Corpuscular HGB Conc 31.8 g/dL (31.6-35.5); Mean Corpuscular Hemoglobin 27.7 pg (28.0-33.3); Mean Corpuscular Volume 86.9 fL (83.0-100.0); Mean Platelet Volume 9.2 fL (9.4-12.4); Neutrophils # 11.5 K/mcL (1.6-8.9); Platelet Count 238 K/mcL (140-400); Red Blood Count 4.59 M/mcL (3.82-4.97); Red Cell Distribution Width 12.8 % (11.5-14.5); Segmented Neutrophils % 79.3 %; White Blood Count 14.4 K/mcL (4.3-11.1)
[2020-01-19 01:57] LABS: BUN/Creatinine Ratio 37 (6-26); Blood Urea Nitrogen 24 mg/dL (6-20); Calcium 9.1 mg/dL (8.6-10.3); Carbon Dioxide 23 mEq/L (23-29); Chloride 106 mEq/L (98-107); Glucose 134 mg/dL (70-105); Osmolality,Calculated 288 (280-300); Potassium 3.6 mEq/L (3.5-5.1); Sodium 136 mEq/L (136-145); eGFR For African Americans > 60 (> 60); eGFR For Non-African Americans > 60 (> 60)
[2020-01-19 03:47] LABS: Thyroid Stimulating Hormone 0.609 mcIU/mL (0.340-5.600)
[2020-01-19 03:49] LABS: Triiodothyronine (T3) Free 3.44 pg/mL (2.50-3.90)
[2020-01-19] MEDS: *HR* Heparin 5,000 UNIT/ML VIAL SQ SCH ×2 (05:23→16:40)
[2020-01-19] MEDS: ARIPiprazole 2 MG TABLET PO SCH (08:45)
[2020-01-19] MEDS: Famotidine 20 MG TABLET PO SCH ×2 (08:46→21:54)
[2020-01-19] MEDS: BuPROPion XL (24 HR) 150 MG TABLET PO SCH (08:46)
[2020-01-19] MEDS: Piperacillin/Tazobactam 3.375 GM in 0.9 % Sodium Chloride Mini Bag 100 ML IVPB SCH (08:47)
[2020-01-19] MEDS: Sennosides/Docusate Sodium TABLET PO SCH (21:54)
[2020-01-20 02:36] LABS: Basophils # 0.1 K/mcL (0.0-0.2); Basophils % 0.6 %; Eosinophils # 0.3 K/mcL (0.0-0.6); Eosinophils % 2.8 %; Hematocrit 38.4 % (35.3-44.9); Hemoglobin 12.3 g/dL (11.5-15.4); Immature Granulocytes % 0.5 % (0-4); Lymphocytes # 2.2 K/mcL (0.6-4.6); Lymphocytes % 22.8 %; Mean Corpuscular Hemoglobin 27.4 pg (28.0-33.3); Mean Corpuscular Volume 85.5 fL (83.0-100.0); Mean Platelet Volume 9.3 fL (9.4-12.4); Monocytes # 0.8 K/mcL (0.0-1.3); Monocytes % 8.4 %; Neutrophils # 6.3 K/mcL (1.6-8.9); Platelet Count 195 K/mcL (140-400); Red Blood Count 4.49 M/mcL (3.82-4.97); Red Cell Distribution Width 12.4 % (11.5-14.5); Segmented Neutrophils % 64.9 %; White Blood Count 9.7 K/mcL (4.3-11.1)
[2020-01-20 02:51] LABS: BUN/Creatinine Ratio 41 (6-26); Blood Urea Nitrogen 25 mg/dL (6-20); Calcium 8.9 mg/dL (8.6-10.3); Carbon Dioxide 25 mEq/L (23-29); Chloride 105 mEq/L (98-107); Glucose 152 mg/dL (70-105); Magnesium 1.7 mg/dL (1.6-2.6); Osmolality,Calculated 291 (280-300); Potassium 3.6 mEq/L (3.5-5.1); Sodium 137 mEq/L (136-145); eGFR For African Americans > 60 (> 60); eGFR For Non-African Americans > 60 (> 60)
[2020-01-20] MEDS ORDERED: cloNIDine HCL 0.1 MG TABLET PO ONE (04:20)
[2020-01-20] MEDS: *HR* Heparin 5,000 UNIT/ML VIAL SQ SCH ×2 (05:23→17:15)
[2020-01-20] MEDS ORDERED: carvediloL 6.25 MG TABLET PO SCH (08:00)
[2020-01-20] MEDS: Famotidine 20 MG TABLET PO SCH ×2 (08:57→21:13)
[2020-01-20] MEDS: BuPROPion XL (24 HR) 150 MG TABLET PO SCH (08:57)
[2020-01-20] MEDS: ARIPiprazole 2 MG TABLET PO SCH (08:57)
[2020-01-20] MEDS: Sennosides/Docusate Sodium TABLET PO SCH ×2 (08:58→21:13)
[2020-01-20] MEDS: Insulin LISPRO 300 UNITS/3 ML VIAL SQ SCH ×4 (08:58→21:13)
[2020-01-20] MEDS: polyethylene glycoL 3350 17 GM POWD.PACK PO SCH (11:15)
[2020-01-20] MEDS: carvediloL 6.25 MG TABLET PO SCH ×2 (15:35→17:15)
[2020-01-21 01:06] LABS: Basophils # 0.1 K/mcL (0.0-0.2); Basophils % 0.7 %; Eosinophils # 0.3 K/mcL (0.0-0.6); Eosinophils % 3.3 %; Hematocrit 37.2 % (35.3-44.9); Hemoglobin 12.1 g/dL (11.5-15.4); Immature Granulocytes % 0.7 % (0-4); Lymphocytes % 20.4 %; Mean Corpuscular HGB Conc 32.5 g/dL (31.6-35.5); Mean Corpuscular Hemoglobin 28.2 pg (28.0-33.3); Mean Corpuscular Volume 86.7 fL (83.0-100.0); Mean Platelet Volume 9.1 fL (9.4-12.4); Monocytes # 0.8 K/mcL (0.0-1.3); Monocytes % 8.2 %; Neutrophils # 6.4 K/mcL (1.6-8.9); Platelet Count 195 K/mcL (140-400); Red Blood Count 4.29 M/mcL (3.82-4.97); Red Cell Distribution Width 12.1 % (11.5-14.5); Segmented Neutrophils % 66.7 %; White Blood Count 9.7 K/mcL (4.3-11.1)
[2020-01-21 01:27] LABS: BUN/Creatinine Ratio 37 (6-26); Blood Urea Nitrogen 20 mg/dL (6-20); Calcium 8.8 mg/dL (8.6-10.3); Carbon Dioxide 25 mEq/L (23-29); Chloride 105 mEq/L (98-107); Glucose 182 mg/dL (70-105); Magnesium 1.7 mg/dL (1.6-2.6); Osmolality,Calculated 287 (280-300); Potassium 3.6 mEq/L (3.5-5.1); Sodium 135 mEq/L (136-145); eGFR For African Americans > 60 (> 60); eGFR For Non-African Americans > 60 (> 60)
[2020-01-21] MEDS: *HR* Heparin 5,000 UNIT/ML VIAL SQ SCH ×2 (05:56→16:33)
[2020-01-21] MEDS: BuPROPion XL (24 HR) 150 MG TABLET PO SCH (08:24)
[2020-01-21] MEDS: Famotidine 20 MG TABLET PO SCH ×2 (08:24→19:58)
[2020-01-21] MEDS: Insulin LISPRO 300 UNITS/3 ML VIAL SQ SCH ×4 (08:25→21:49)
[2020-01-21] MEDS: carvediloL 6.25 MG TABLET PO SCH ×2 (08:25→16:33)
[2020-01-21] MEDS: ARIPiprazole 2 MG TABLET PO SCH (08:25)
[2020-01-21] MEDS: polyethylene glycoL 3350 17 GM POWD.PACK PO SCH (08:25)
[2020-01-21] MEDS ORDERED: cloNIDine HCL 0.1 MG TABLET PO ONE (19:41)
[2020-01-22 01:46] LABS: Basophils # 0.1 K/mcL (0.0-0.2); Basophils % 0.6 %; Eosinophils # 0.4 K/mcL (0.0-0.6); Eosinophils % 3.1 %; Hematocrit 37.1 % (35.3-44.9); Hemoglobin 12.1 g/dL (11.5-15.4); Immature Granulocytes % 0.8 % (0-4); Lymphocytes # 1.9 K/mcL (0.6-4.6); Lymphocytes % 16.5 %; Mean Corpuscular HGB Conc 32.6 g/dL (31.6-35.5); Mean Corpuscular Hemoglobin 28.1 pg (28.0-33.3); Mean Corpuscular Volume 86.1 fL (83.0-100.0); Monocytes % 9.2 %; Neutrophils # 7.8 K/mcL (1.6-8.9); Platelet Count 200 K/mcL (140-400); Red Blood Count 4.31 M/mcL (3.82-4.97); Red Cell Distribution Width 11.9 % (11.5-14.5); Segmented Neutrophils % 69.8 %; White Blood Count 11.3 K/mcL (4.3-11.1)
[2020-01-22 02:06] LABS: BUN/Creatinine Ratio 28 (6-26); Blood Urea Nitrogen 15 mg/dL (6-20); Calcium 8.9 mg/dL (8.6-10.3); Carbon Dioxide 26 mEq/L (23-29); Chloride 103 mEq/L (98-107); Glucose 153 mg/dL (70-105); Magnesium 1.7 mg/dL (1.6-2.6); Osmolality,Calculated 282 (280-300); Potassium 3.7 mEq/L (3.5-5.1); Sodium 134 mEq/L (136-145); eGFR For African Americans > 60 (> 60); eGFR For Non-African Americans > 60 (> 60)
[2020-01-22] MEDS: *HR* Heparin 5,000 UNIT/ML VIAL SQ SCH ×2 (05:26→16:34)
[2020-01-22] MEDS: Famotidine 20 MG TABLET PO SCH ×2 (07:55→20:19)
[2020-01-22] MEDS: ARIPiprazole 2 MG TABLET PO SCH (07:55)
[2020-01-22] MEDS: BuPROPion XL (24 HR) 150 MG TABLET PO SCH (07:55)
[2020-01-22] MEDS: carvediloL 6.25 MG TABLET PO SCH ×2 (07:55→16:33)
[2020-01-22] MEDS: polyethylene glycoL 3350 17 GM POWD.PACK PO SCH (07:55)
[2020-01-22] MEDS: Insulin LISPRO 300 UNITS/3 ML VIAL SQ SCH ×4 (07:55→20:06)
[2020-01-22] MEDS ORDERED: amLODIPine 5 MG TABLET PO SCH (16:15)
[2020-01-22] MEDS: Magnesium Oxide 400 MG TABLET PO SCH ×2 (16:34→20:18)
[2020-01-23 02:23] LABS: Basophils # 0.1 K/mcL (0.0-0.2); Basophils % 0.7 %; Eosinophils # 0.4 K/mcL (0.0-0.6); Eosinophils % 3.2 %; Hematocrit 38.9 % (35.3-44.9); Hemoglobin 12.6 g/dL (11.5-15.4); Immature Granulocytes % 1.2 % (0-4); Lymphocytes # 2.1 K/mcL (0.6-4.6); Lymphocytes % 17.3 %; Mean Corpuscular HGB Conc 32.4 g/dL (31.6-35.5); Mean Corpuscular Hemoglobin 27.2 pg (28.0-33.3); Mean Platelet Volume 9.3 fL (9.4-12.4); Monocytes # 0.9 K/mcL (0.0-1.3); Monocytes % 7.6 %; Neutrophils # 8.4 K/mcL (1.6-8.9); Platelet Count 253 K/mcL (140-400); Red Blood Count 4.63 M/mcL (3.82-4.97); Red Cell Distribution Width 11.9 % (11.5-14.5)
[2020-01-23 02:42] LABS: BUN/Creatinine Ratio 27 (6-26); Blood Urea Nitrogen 14 mg/dL (6-20); Carbon Dioxide 27 mEq/L (23-29); Chloride 101 mEq/L (98-107); Glucose 111 mg/dL (70-105); Magnesium 1.8 mg/dL (1.6-2.6); Osmolality,Calculated 281 (280-300); Potassium 3.6 mEq/L (3.5-5.1); Sodium 135 mEq/L (136-145); eGFR For African Americans > 60 (> 60); eGFR For Non-African Americans > 60 (> 60)
[2020-01-23] MEDS: *HR* Heparin 5,000 UNIT/ML VIAL SQ SCH (05:44)
[2020-01-23] MEDS: ARIPiprazole 2 MG TABLET PO SCH (08:26)
[2020-01-23] MEDS: Magnesium Oxide 400 MG TABLET PO SCH (08:26)
[2020-01-23] MEDS: BuPROPion XL (24 HR) 150 MG TABLET PO SCH (08:26)
[2020-01-23] MEDS: Insulin LISPRO 300 UNITS/3 ML VIAL SQ SCH ×2 (08:27→11:20)
[2020-01-23] MEDS: polyethylene glycoL 3350 17 GM POWD.PACK PO SCH (08:27)
[2020-01-23] MEDS: carvediloL 6.25 MG TABLET PO SCH (08:27)
[2020-01-23] MEDS: Famotidine 20 MG TABLET PO SCH (08:27)
[2020-01-23] MEDS ORDERED: amLODIPine 5 MG TABLET PO SCH (09:00)
[2020-01-23 14:17] VITALS: BP 120/69
[2020-01-23 16:41] LABS: Metanephrine, Plasma 0.23 nmol/L (0.00-0.49)
[2020-01-25 13:43] LABS: Urine Collection Volume 762 mL; Urine Creatinine mg/d 1295 mg/d (500-1400)
[2020-01-25 16:35] LABS: Urine Collection Volume 762 mL
[2020-01-26 07:54] LABS: Urine Creatinine mg/d 1295 mg/d (500-1400)
== END 2020-01-23 14:15 | disposition home health service (06) | DRG 871 ==
LOC: EMEROOARM 01:26 → 2ANU 01:26 → SUATTDRO 03:45 → 2ANU 04:11
PROVIDERS: ADMIT Internal Medicine; ATTEND Pharmacist